=== PATIENT | female | born 1935 | race African-American/Black ===

== ENCOUNTER 2017-11-03 11:36 | Inpatient (IN) | payer OTHER, BC ==
--- NOTE | 2017-11-03 11:39 | PDOC ---
History of Present Illness - General Chief Complaint: Pain Stated Complaint: ABDOMINAL PAIN Time Seen by Provider: 11/03/17 11:38 - History of Present Illness Initial Comments: 11/03/17 11:39 Ms. Soto is an 82 yo female w/ pmh of HLD, HTN (now reportedly resolved by daughter), dementia and DM who presents for evaluation of abdominal pain. Per daughter who is with her she vomited up her breakfast on and has been reporting increasing abdominal pain since. Daughter decided to present to ER when she touched her mother's stomach last night and Ms. Soto reported a large amount of pain. Ms. Soto has not had a bowel movement recently but has not been eating since per daughter. She typically goes once every 4-5 days but it has now been 5-6 with only scant amounts of stool noted in diaper recently. The patient denies chest pain, shortness of breath, headache and dizziness. Denies fever, chills, nausea, and diarrhea. Denies dysuria, frequency, urgency and hematuria. Allergies: NKDA Past History - Past Medical History Allergies/Adverse Reactions: Allergies Allergy/AdvReac Type Severity Reaction Status Date / Time No Known Allergies Allergy Verified 11/03/17 11:39 Home Medications: Ambulatory Orders Atorvastatin Ca [Lipitor] 10 mg PO HS 11/03/17 Brimonidine Tartrate/Timolol [Combigan 0.2%-0.5% Eye Drops] 1 drop OU BID Metformin HCl 500 mg PO BID 11/03/17 Review of Systems - Review of Systems Comments:: 11/03/17 11:39 GENERAL/CONSTITUTIONAL: +Increased weakness. No fever or chills. HEAD, EYES, EARS, NOSE AND THROAT: No change in vision. No ear pain or discharge. No sore throat. CARDIOVASCULAR: No chest pain or shortness of breath RESPIRATORY: No cough, wheezing, or hemoptysis. GASTROINTESTINAL: +1 episode of nausea with vomiting (NBNB). Some constipation as described. GENITOURINARY: No dysuria, frequency, or change in urination. MUSCULOSKELETAL: No joint or muscle swelling or pain. No neck or back pain. SKIN: No rash NEUROLOGIC: No headache, vertigo, loss of consciousness, or change in strength/ sensation. ENDOCRINE: No increased thirst. No abnormal weight change HEMATOLOGIC/LYMPHATIC: No anemia, easy bleeding, or history of blood clots. ALLERGIC/IMMUNOLOGIC: No hives or skin allergy. *Physical Exam - Physical Exam Comments: 11/03/17 11:39 GENERAL: +Patient appears significantly dehydrated with sunken eyes and dry mucous membranes. Awake, alert, and fully oriented, in no acute distress HEAD: No signs of trauma, normocephalic, atraumatic EYES: PERRLA, EOMI, sclera anicteric, conjunctiva clear ENT: Auricles normal inspection, hearing grossly normal, nares patent, oropharynx clear without exudates. NECK: Normal ROM, supple, no lymphadenopathy, JVD, or masses LUNGS: No distress, speaks full sentences, clear to auscultation bilaterally HEART: Regular rate and rhythm, normal S1 and S2, no murmurs, rubs or gallops, peripheral pulses normal and equal bilaterally. ABDOMEN: +Diffusely tender to palpation. Soft, normoactive bowel sounds. No guarding, no rebound. No masses EXTREMITIES: Normal inspection, Normal range of motion, no edema. No clubbing or cyanosis. NEUROLOGICAL: Cranial nerves II through XII grossly intact. Normal speech, normal gait, no focal sensorimotor deficits SKIN: +Tenting apparent. Warm, Dry, no rashes or lesions noted. ED Treatment Course - LABORATORY CBC & Chemistry Diagram: 11/03/17 12:29 11/03/17 12:24 Medical Decision Making - Medical Decision Making 11/03/17 16:49 Ms. Soto is an 82 yo female w/ pmh as described who presents for evaluation of 3 days of abdominal pain with decreased appetitie. CBC/CMP/UA/EKG/Abdominal CT sent for further evaluation. 11/03/17 16:[address] made without IV as patient creatinine noted to be elevated. CBC/ CMP unconcerning as below. Patient found to have SBO on abdominal CT. NG tube placed for decompression. Discussed patient with surgery for evaluation and discussed with PCP (Dr. Bill) for admission. Patient will be admitted to med/ surg floor for further follow-up. Laboratory Results - last 24 hr 11/03/17 11/03/17 11/03/17 11:53 12:24 12:29 WBC 7.6 RBC 3.42 L Hgb 10.1 L Hct 29.8 L MCV 87.1 MCH 29.6 MCHC 34.0 RDW 14.4 Plt Count 154 MPV 9.4 Neutrophils % 84.5 H Lymphocytes % 4.0 L Monocytes % 11.1 H Eosinophils % 0.3 Basophils % 0.1 Sodium 139 Potassium 3.0 L Chloride 102 Carbon Dioxide 18 L Anion Gap 19 H BUN 67 H Creatinine 1.8 H Creat Clearance w eGFR 26.87 Random Glucose 192 H Lactic Acid Calcium 8.0 L Total Bilirubin 1.6 H AST 39 H ALT 26 Alkaline Phosphatase 53 Total Protein 5.5 L Albumin 2.8 L Lipase 80 Urine Color Urine Appearance Urine pH Ur Specific [place] Urine Protein Urine Glucose (UA) Urine Ketones Urine Blood Urine Nitrite Urine Bilirubin Urine Urobilinogen Ur Leukocyte Esterase Urine WBC (Auto) Urine RBC (Auto) Ur Epithelial Cells Urine Bacteria Hyaline Casts Granular Casts Stool Occult Blood Negative 11/03/17 11/03/17 12:29 12:42 WBC RBC Hgb Hct MCV MCH MCHC RDW Plt Count MPV Neutrophils % Lymphocytes % Monocytes % Eosinophils % Basophils % Sodium Potassium Chloride Carbon Dioxide Anion Gap BUN Creatinine Creat Clearance w eGFR Random Glucose Lactic Acid 1.0 Calcium Total Bilirubin AST ALT Alkaline Phosphatase Total Protein Albumin Lipase Urine Color Yellow Urine Appearance Cloudy Urine pH 5.0 Ur Specific [place] 1.017 Urine Protein 1+ H Urine Glucose (UA) 1+ H Urine Ketones 1+ H Urine Blood 2+ H Urine Nitrite Negative Urine Bilirubin Negative Urine Urobilinogen Negative Ur Leukocyte Esterase Negative Urine WBC (Auto) 2 Urine RBC (Auto) 3 Ur Epithelial Cells Rare Urine Bacteria Many Hyaline Casts 18 Granular Casts 17 Stool Occult Blood *DC/Admit/Observation/Transfer Diagnosis at time of Disposition: SBO (small bowel obstruction) - Discharge Dispostion Admit: Yes - Referrals - Patient Instructions - Post Discharge Activity
--- NOTE | 2017-11-03 11:45 | PDOC ---
Attending Attestation - HPI HPI: 11/03/17 12:19 The patient is an 82 F with PMHx of Hyperlipidemia, hypertension (now resolved as per daughter), dementia, and diabetes, who presents with abdominal pain. Patients daughter states that patient vomited on after eating breakfast and had progressively worsening abdominal pain since then. She reports decreased PO intake. The patient denies chest pain, shortness of breath, headache and dizziness. Denies fever, chills, diarrhea and constipation. Denies dysuria, frequency, urgency and hematuria. Allergies: NKDA PCP: Rachel Bill - Physicial Exam PE: 11/03/17 12:20 Exam: Vitals: Triage Vital signs reviewed General Appearance: mild distress, cachetic. Head: Atraumatic, normocephalic Chest Wall: Nontender Cardiac: Regular rate and rhythm, no murmurs, no rubs, no gallops, Lungs: Clear to auscultation bilateral, good air movement bilaterally, Abdomen: Soft, normal bowel sounds, diffuse tenderness to palpation. Rectal: Exam deferred Extremities: Full range of motion to all extremities, no cyanosis, clubbing, or edema Skin: Warm and dry, no rashes or lesions, no petechiae <Sharri Hendricks - Last Filed: 11/03/17 12:41> - Resident Resident Name: Shahid Bruno - ED Attending Attestation I have performed the following: I have examined & evaluated the patient, The case was reviewed & discussed with the resident, I agree w/resident's findings & plan, Exceptions are as noted - HPI HPI: 11/03/17 16:39 - Medical Decision Making 81 years old past medical history significant for hyperlipidemia hypertension dementia diabetes presents with several day history of nausea vomiting and abdominal pain Abdominal examination diffuse tenderness we'll order labs EKG CT abdomen and reassess Unable to have patient tolerated by mouth contrast Reevaluation CAT scan notable for small bowel obstruction. Dr. Ayers surgery consulted We will admit to medicine. Surgery to consult. NG tube placed by resident Confirmed by positive suctioning of gastric content We'll admit for further management. A portion of this note was documented by scribe services under my direction I reviewed the details of note within reason and agree with the documentation with the following case summary and management plan written by me <Ever Verdugo - Last Filed: 11/03/17 16:40> Heart Score/ECG Review - ECG Impressions Comment:: EKG performed at 1518. Sinus rhythm 93 beats per minutes no ST elevations or T- wave inversions Interpreted by me <Ever Verdugo - Last Filed: 11/03/17 16:40>
[2017-11-03 11:46] VITALS: BMI 16.0
[2017-11-03] MEDS ORDERED: SODIUM CHLORIDE 1,000 ML IV STA (12:15)
[2017-11-03] MEDS ORDERED: morphine CARPU-JECT 2 MG/1 ML DISP.SYRIN IVPUSH ONE (12:16)
[2017-11-03 12:51] LABS: BASO % 0.1 % (0-2.0); EOS % 0.3 % (0-4.5); HEMATOCRIT 29.8 % (32.4-45.2); HEMOGLOBIN 10.1 GM/dL (10.7-15.3); MCH 29.6 pg (25.7-33.7); MEAN CELL VOLUME 87.1 fl (80-96); MEAN PLT VOLUME 9.4 fl (7.5-11.1); MONO % 11.1 % (3.8-10.2); NEUT % 84.5 % (42.8-82.8); PLATELET COUNT 154 K/MM3 (134-434); RBC 3.42 M/mm3 (3.60-5.2); RDW 14.4 % (11.6-15.6); WHITE BLOOD COUNT 7.6 K/mm3 (4.0-10.0)
[2017-11-03 12:59] LABS: ALBUMIN 2.8 g/dl (3.4-5.0); ALK PHOS 53 U/L (45-117); ANION GAP 19 (8-16); BILIRUBIN,TOTAL 1.6 mg/dL (0.2-1.0); BLOOD UREA NITROGEN 67 mg/dL (7-18); CHLORIDE 102 mmol/L (98-107); CO2 18 mmol/L (21-32); CREATININE 1.8 mg/dL (0.55-1.02); GLUCOSE,RANDOM 192 mg/dL (74-106); LIPASE 80 U/L (73-393); SGOT/AST 39 U/L (15-37); SGPT/ALT 26 U/L (12-78); SODIUM 139 mmol/L (136-145); TOT PROT 5.5 g/dl (6.4-8.2)
[2017-11-03] MEDS ORDERED: morphine SULFATE 4 MG/ML VIAL ONE ×2 (12:59→15:12)
[2017-11-03 13:01] LABS: URINE APPEARANCE CLOUDY; URINE BILIRUBIN NEGATIVE (NEGATIVE); URINE BLOOD 2+ (NEGATIVE); URINE COLOR YELLOW; URINE GLUCOSE (UA) 1+ (NEGATIVE); URINE KETONE 1+ (NEGATIVE); URINE LEUK ESTERASE NEGATIVE (NEGATIVE); URINE NITRITE NEGATIVE (NEGATIVE); URINE UROBILINOGEN NEGATIVE mg/dL (0.2-1.0)
[2017-11-03 13:06] LABS: URINE PROTEIN 1+ (NEGATIVE)
[2017-11-03 13:19] LABS: EPI CELLS RARE /HPF (FEW); GRANULAR CASTS 17 /lpf; URINE BACTERIA MANY /hpf (NONE SEEN); URINE HYALINE CAST 18 /lpf
[2017-11-03] MEDS ORDERED: morphine CARPU-JECT 4 MG/1 ML DISP.SYRIN IVPUSH ONE (15:04)
[2017-11-03] MEDS ORDERED: TETRACAINE/BENZOCAINE/BUTAMBEN 20 GM SPR TP ONE (15:36)
[2017-11-03] MEDS ORDERED: LIDOCAINE VISCOUS 2% ORAL/TOP 20 ML UNIT-DOSE CUP MM ONE (15:36)
[2017-11-03] MEDS ORDERED: MIDAZOLAM HCL 2 MG/2 ML SINGLE DOSE VIAL IVPUSH ONE (15:36)
[2017-11-03] MEDS ORDERED: LIDOCAINE VISCOUS 2% ORAL/TOP 20 ML UNIT-DOSE CUP ONE (15:39)
[2017-11-03] MEDS ORDERED: MIDAZOLAM HCL 2 MG/2 ML SINGLE DOSE VIAL ONE (15:40)
[2017-11-03] MEDS ORDERED: morphine CARPU-JECT 2 MG/1 ML DISP.SYRIN IVPUSH PRN (21:04)
[2017-11-03] MEDS ORDERED: SODIUM CHLORIDE 0.45%/POT 20 MEQ/1,000 ML INFUS.BAG IV SCH (21:15)
[2017-11-03] MEDS: PANTOPRAZOLE SODIUM 40 MG VIAL IVPUSH SCH (21:26)
[2017-11-03] MEDS: HEPARIN NA (PORCINE) 5,000 UNITS/ML 1ML VIAL SQ SCH (21:29)
[2017-11-03 21:41] LABS: BASO % 0.1 % (0-2.0); EOS % 0.5 % (0-4.5); HEMATOCRIT 33.8 % (32.4-45.2); HEMOGLOBIN 11.4 GM/dL (10.7-15.3); LYMPH % 8.3 % (8-40); MCH 29.7 pg (25.7-33.7); MCHC 33.7 g/dl (32.0-36.0); MEAN CELL VOLUME 88.1 fl (80-96); MEAN PLT VOLUME 9.5 fl (7.5-11.1); MONO % 13.2 % (3.8-10.2); NEUT % 77.9 % (42.8-82.8); PLATELET COUNT 162 K/MM3 (134-434); RBC 3.84 M/mm3 (3.60-5.2); RDW 14.4 % (11.6-15.6); WHITE BLOOD COUNT 3.2 K/mm3 (4.0-10.0)
[2017-11-03] MEDS ORDERED: PATIENT'S OWN MEDICATION (NON-FORMULARY) (Brimonidine Tartrate/Timolol [Combigan 0.2%-0.5% OU SCH (22:00)
[2017-11-03] MEDS: INSULIN SLIDING SCALE (NOVOLOG) 1 VIAL SQ SCH (22:36)
[2017-11-03] MEDS: DORZOLAMIDE 2% HCL OPHTHALMIC SOLUTION 10 ML BOTTLE OU SCH (22:52)
[2017-11-03] MEDS: BRIMONIDINE TARTRATE 0.2% OPHTHALMIC 5 ML BOTTLE OU SCH (22:52)
[2017-11-03] MEDS ORDERED: SODIUM CHLORIDE 0.45% 1,000 ML with POTASSIUM CHLORIDE 20 MEQ IVPB SCH (23:00)
[2017-11-03] MEDS: PIPERACILLIN/TAZOB 2.25 GM 2.25 GM/50 ML BAG IVPB SCH (23:23)
[2017-11-04] MEDS ORDERED: PIPERACILLIN/TAZOB 2.25 GM/50 ML PREMIX BAG IVPB SCH ×2 (02:00→10:00)
[2017-11-04] MEDS: PIPERACILLIN/TAZOB 2.25 GM 2.25 GM/50 ML BAG IVPB SCH (06:07)
[2017-11-04] MEDS: INSULIN SLIDING SCALE (NOVOLOG) 1 VIAL SQ SCH ×4 (06:13→21:21)
[2017-11-04 08:21] LABS: BASO % 0.1 % (0-2.0); EOS % 0.2 % (0-4.5); HEMATOCRIT 30.5 % (32.4-45.2); HEMOGLOBIN 10.5 GM/dL (10.7-15.3); LYMPH % 4.5 % (8-40); MCH 29.9 pg (25.7-33.7); MCHC 34.4 g/dl (32.0-36.0); MEAN CELL VOLUME 87.1 fl (80-96); MEAN PLT VOLUME 9.5 fl (7.5-11.1); MONO % 9.7 % (3.8-10.2); NEUT % 85.5 % (42.8-82.8); PLATELET COUNT 177 K/MM3 (134-434); RBC 3.51 M/mm3 (3.60-5.2); RDW 14.4 % (11.6-15.6); WHITE BLOOD COUNT 5.5 K/mm3 (4.0-10.0)
[2017-11-04 08:25] LABS: ALBUMIN 2.7 g/dl (3.4-5.0); AMYLASE 39 U/L (25-115); ANION GAP 21 (8-16); BLOOD UREA NITROGEN 63 mg/dL (7-18); CALCIUM 8.2 mg/dL (8.5-10.1); CHLORIDE 105 mmol/L (98-107); CO2 16 mmol/L (21-32); CREATININE 1.7 mg/dL (0.55-1.02); GLUCOSE,RANDOM 184 mg/dL (74-106); LIPASE 58 U/L (73-393); MAGNESIUM 2.3 mg/dL (1.8-2.4); POTASSIUM 3.5 mmol/L (3.5-5.1); SGOT/AST 36 U/L (15-37); SGPT/ALT 27 U/L (12-78); SODIUM 142 mmol/L (136-145)
[2017-11-04 08:26] LABS: ALK PHOS 51 U/L (45-117); BILIRUBIN,TOTAL 1.8 mg/dL (0.2-1.0); TOT PROT 5.7 g/dl (6.4-8.2)
[2017-11-04] MEDS ORDERED: PT OWN MED DRAWER 7, Y5N ONE ×2 (08:35→21:26)
[2017-11-04] MEDS: MORPHINE SULFATE 10 MG/1 ML *VIAL IVPUSH PRN ×2 (08:38→15:19)
[2017-11-04] MEDS ORDERED: ONDANSETRON 4 MG/2 ML VIAL IVPUSH PRN (10:33)
--- NOTE | 2017-11-04 10:39 | HP ---
Admitting History and Physical - Primary Care Physician PCP: Rachel Bill - Admission Chief Complaint: Abdominal pain, Nausea, vomiting History of Present Illness: The patient is an 82 F with PMHx of Hyperlipidemia, hypertension (now resolved as per daughter), dementia, and diabetes, who presents with abdominal pain. Patients daughter states that patient vomited on after eating breakfast and had progressively worsening abdominal pain since then. She reports decreased PO intake. The patient denies chest pain, shortness of breath, headache and dizziness. Denies fever, chills, diarrhea and constipation. Denies dysuria, frequency, urgency and hematuria. 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: Dementia Endocrine: Yes: Diabetes Mellitus (NIDDM) - Smoking History Smoking history: Never smoked - Alcohol/Substance Use Hx Alcohol Use: No Home Medications - Allergies Allergies/Adverse Reactions: Allergies Allergy/AdvReac Type Severity Reaction Status Date / Time No Known Allergies Allergy Verified 11/03/17 11:39 - Home Medications Home Medications: Ambulatory Orders Atorvastatin Ca [Lipitor] 10 mg PO HS 11/03/17 Brimonidine Tartrate/Timolol [Combigan 0.2%-0.5% Eye Drops] 1 drop OU BID Metformin HCl 500 mg PO BID 11/03/17 Review of Systems - Review of Systems Constitutional: reports: No Symptoms Eyes: reports: No Symptoms HENT: reports: No Symptoms Neck: reports: No Symptoms Cardiovascular: reports: No Symptoms Respiratory: reports: No Symptoms Gastrointestinal: reports: Abdominal Pain, Nausea, Vomiting Genitourinary: reports: No Symptoms Breasts: reports: No Symptoms Reported Musculoskeletal: reports: No Symptoms Integumentary: reports: No Symptoms Neurological: reports: No Symptoms Endocrine: reports: No Symptoms Hematology/Lymphatic: reports: No Symptoms Psychiatric: reports: No Symptoms Physical Examination Vital Signs: Vital Signs Temperature 98.0 F 11/04/17 06:00 Pulse Rate 93 H 11/04/17 06:00 Respiratory Rate 18 11/04/17 06:00 Blood Pressure 132/77 11/04/17 06:00 O2 Sat by Pulse Oximetry (%) 100 11/03/17 22:15 Constitutional: Yes: No Distress, Calm, Cachectic Cardiovascular: Yes: Regular Rate and Rhythm Respiratory: Yes: Regular Gastrointestinal: Yes: Hypoactive Bowel Sounds, Tenderness Musculoskeletal: Yes: WNL Extremities: Yes: WNL Edema: No Peripheral Pulses WNL: Yes Neurological: Yes: Alert, Pre-Existing Deficit Psychiatric: Yes: Alert Labs: CBC, BMP 11/04/17 07:35 11/04/17 07:35 Imaging - Results Chest X-ray: Report Reviewed Cat Scan: Report Reviewed Problem List - Problems (1) Malnourished Assessment/Plan: evidence by low total protein and albumin -RD consult once SBO improves Code(s): E46 - UNSPECIFIED PROTEIN-CALORIE MALNUTRITION (2) SBO (small bowel obstruction) Assessment/Plan: -NGT -NPO -Surgery consult pending -serial abdominal Xrays -IVF with KCl -ABX in light of complete or high grade SBO Code(s): K56.609 - UNSP INTESTNL OBST, UNSP TO PARTIAL VERSUS COMPLETE OBST (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
[2017-11-04] MEDS ORDERED: FLU VACCINE QUAD 60 MCG/0.5 ML (MDV 17-18) IM ONE (11:00)
[2017-11-04] MEDS: SODIUM CHLORIDE 0.45% 1,000 ML with POTASSIUM CHLORIDE 20 MEQ IV SCH ×2 (12:17→21:30)
[2017-11-04] MEDS: PANTOPRAZOLE SODIUM 40 MG VIAL IVPUSH SCH (12:19)
[2017-11-04] MEDS: BRIMONIDINE TARTRATE 0.2% OPHTHALMIC 5 ML BOTTLE OU SCH ×2 (12:20→21:29)
[2017-11-04] MEDS: HEPARIN NA (PORCINE) 5,000 UNITS/ML 1ML VIAL SQ SCH ×2 (12:24→21:16)
[2017-11-04] MEDS: DORZOLAMIDE 2% HCL OPHTHALMIC SOLUTION 10 ML BOTTLE OU SCH ×2 (12:24→21:27)
[2017-11-04] MEDS ORDERED: PIPERACILLIN/TAZOB 2.25 GM 2.25 GM in DEXTROSE 5%-WATER - 50 ML IVPB SCH (15:45)
--- NOTE | 2017-11-04 15:54 | EKG ---
Test Reason : Blood Pressure : / mmHG Vent. Rate : 109 BPM Atrial Rate : 109 BPM P-R Int : 120 ms QRS Dur : 068 ms QT Int : 336 ms P-R-T Axes : 058 023 088 degrees QTc Int : 452 ms SINUS TACHYCARDIA OTHERWISE NORMAL ECG WHEN COMPARED WITH ECG OF 03-NOV-2017 15:18, NO SIGNIFICANT CHANGE WAS FOUND Confirmed by STACY LEE MD ([id number]) on 11/04/2017 3:54:21 PM Referred By: Confirmed By:STACY LEE MD
--- NOTE | 2017-11-04 16:05 | EKG ---
Test Reason : Blood Pressure : / mmHG Vent. Rate : 093 BPM Atrial Rate : 093 BPM P-R Int : 122 ms QRS Dur : 068 ms QT Int : 366 ms P-R-T Axes : 046 -05 071 degrees QTc Int : 455 ms NORMAL SINUS RHYTHM NORMAL ECG NO PREVIOUS ECGS AVAILABLE Confirmed by STACY LEE MD ([id number]) on 11/04/2017 4:05:48 PM Referred By: Confirmed By:STACY LEE MD
--- NOTE | 2017-11-04 16:06 | PN ---
Progress Note (short form) - Note Progress Note: ID consult dictated imp/reccd 82 year old female admitted from home with constipation since Saturday and abdominal pain, one episode of vomiting ct scan with SBO no perforation NGT has been placed still with some abdominal discomfort no fevers no leukocytosis will d/w surgery- see no role for antibiotics at this time Problem List - Problems (1) SBO (small bowel obstruction) Code(s): K56.609 - UNSP INTESTNL OBST, UNSP TO PARTIAL VERSUS COMPLETE OBST (2) Malnourished Code(s): E46 - UNSPECIFIED PROTEIN-CALORIE MALNUTRITION
--- NOTE | 2017-11-04 18:00 | PN ---
Progress Note (short form) - Note Progress Note: surgery pt seen and examined this morning. full consult dictated. 82f, cachectic, dementia, admitted for abd pain, vomiting, and ct showing sbo. History of hysterectomy. ngt with about 300 bilious output. 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 Pt is a poor candidate for surgery and every attempt should be made for medical management. Clinically no bowel compromise with normal wbc, no fever, and no peritoneal findings on exam. Cont ngt and npo. Oral contrast given via ngt to be followed for migration on kub. Suggest TPN for protein calorie malnutrition and unknown date for return of gut function. Would consider laparotomy Saturday if no improvement.
--- NOTE | 2017-11-04 18:43 | CONS ---
DATE OF CONSULTATION: 11/04/2017 REASON FOR CONSULTATION: Small-bowel obstruction. This is a consultation at the request of the emergency room physician. The patient was subsequently admitted to the hospital floor as an inpatient, is being seen and examined on the floor. BRIEF HISTORY: This is an 82-year-old female with multiple medical problems including dementia and cachexia, who presents with abdominal pain, nausea, and vomiting. She had a CAT scan of her abdomen and pelvis, which was consistent with a high-grade partial bowel obstruction. She had a normal white blood cell count and was admitted for conservative management and request is made for a surgical evaluation. A nasogastric tube was placed with resolution of her pain. She has had no bowel movements, and she is not passing gas. NG tube output has been approximately 300 bilious since being placed. PAST MEDICAL HISTORY: Significant for hyperlipidemia, hypertension, dementia, and diabetes. PAST SURGICAL HISTORY: Significant for a hysterectomy. SOCIAL HISTORY: Negative for alcohol, negative for tobacco. ALLERGIES: She has no known drug allergies. HOME MEDICATIONS: Include Lipitor and metformin. FAMILY HISTORY: Noncontributory. REVIEW OF SYSTEMS: Unobtainable as the patient has dementia. PHYSICAL EXAMINATION: General: This is a cachectic, 82-year-old female in no distress. HEENT: Her head shows temporal wasting. Neck: Supple. Chest: Clear. Abdomen: Soft. It is moderately distended. It is nontender. She has a well-healed Pfannenstiel incision. She has no obvious hernias. There are no peritoneal findings. Extremities: Trace edema. LABORATORY DATA: Her white blood cell count is normal at 5.5. She has 85% neutrophils. Her hemoglobin is 10.5. Her chemistries show BUN of 63, a creatinine of 1.7. Her albumin is low at 2.7. IMAGING: She has a CAT scan of her abdomen and pelvis, which shows a high-grade small-bowel obstruction with transition in the left lower quadrant. There is ascites noted within the abdomen and pelvis, as well as pleural effusions. ASSESSMENT: This is an 82-year-old female with multiple medical problems including cachexia, previous hysterectomy, who presents with abdominal pain, nausea, vomiting, and CAT scan evidence of a high-grade small-bowel obstruction with ascites. Clinically, she has no evidence of bowel compromise based on white count and physical examination findings. She is currently pain free with nasogastric tube decompression. I suspect she has a high-grade bowel obstruction secondary to adhesive disease. Patient is a very poor candidate for surgery. We will make every attempt at medical management. I agree with NG tube decompression, agree with n.p.o. We will add oral contrast to the NG tube in order to follow for its migration on serial abdominal x-rays. Would consider laparotomy after several days if there is no evidence of improvement. Recommend TPN to be started as patient currently has protein calorie malnutrition, and if she requires surgery, she will have a hard time healing. Also, it is unclear when the patient will have return of gut function. I had a conversation with one of the patient's daughters and another one was on the phone during the exam. Patient currently is nontoxic without evidence of bowel compromise. DO SOLEDAD LEIGH/[id number]
[2017-11-04] MEDS ORDERED: INSULIN (NOVOLOG) ASPART 100 UNITS/ML 10ML VIAL ONE (20:36)
[2017-11-05] MEDS: SODIUM CHLORIDE 0.45% 1,000 ML with POTASSIUM CHLORIDE 20 MEQ IV SCH ×2 (00:26→10:34)
[2017-11-05] MEDS: INSULIN SLIDING SCALE (NOVOLOG) 1 VIAL SQ SCH ×4 (06:05→21:29)
[2017-11-05] MEDS: MORPHINE SULFATE 10 MG/1 ML *VIAL IVPUSH PRN ×2 (06:28→10:42)
[2017-11-05] MEDS: BRIMONIDINE TARTRATE 0.2% OPHTHALMIC 5 ML BOTTLE OU SCH ×2 (10:34→21:22)
[2017-11-05] MEDS: HEPARIN NA (PORCINE) 5,000 UNITS/ML 1ML VIAL SQ SCH ×2 (10:35→21:22)
[2017-11-05] MEDS: DORZOLAMIDE 2% HCL OPHTHALMIC SOLUTION 10 ML BOTTLE OU SCH ×2 (10:44→21:22)
--- NOTE | 2017-11-05 10:44 | PN ---
Progress Note, Physician Chief Complaint: SBO History of Present Illness: RIDDHI just came back from [facility] with contrast -Pt pulled out her NGT overnight -IVF -seen by ID and surgery -trial of conservative measures -Renal consult for initiation of TPN -PICC line consult - Current Medication List Current Medications: Active Medications Brimonidine Tartrate (Alphagan 0.2% -) 1 drop OU BID [facility] Last Admin: 11/04/17 21:29 Dose: 1 drp Dorzolamide HCl (Trusopt 2%) 1 drop OU BID [facility] Last Admin: 11/04/17 21:27 Dose: 1 drop Heparin Sodium (Porcine) (Heparin -) 5,000 unit SQ BID [facility] Last Admin: 11/04/17 21:16 Dose: 5,000 unit IV Flush (Picc Line Flush) 8 ml IVPUSH PRN PRN PRN Reason: Protocol Potassium Chloride 20 meq/ (Sodium Chloride) 1,010 mls @ 100 mls/hr IV Q10H [facility] Last Admin: 11/05/17 00:26 Dose: 100 mls/hr Insulin Aspart (Novolog Vial Sliding Scale -) 1 vial SQ ACHS [facility] PRN Reason: Protocol Last Admin: 11/05/17 06:05 Dose: Not Given Lorazepam (Ativan Injection -) 1 mg IVPUSH TID PRN PRN Reason: ANXIETY Morphine Sulfate (Morphine Injection -) 1 mg IVPUSH Q4H PRN PRN Reason: PAIN LEVEL 6-10 Last Admin: 11/05/17 06:28 Dose: 1 mg Ondansetron HCl (Zofran Injection) 4 mg IVPUSH Q6H PRN PRN Reason: NAUSEA AND/OR VOMITING Pantoprazole Sodium (Protonix Iv) 40 mg IVPUSH DAILY [facility] Last Admin: 11/04/17 12:19 Dose: 40 mg - Objective Vital Signs: Vital Signs Temperature 97.7 F 11/05/17 07:00 Pulse Rate 87 11/05/17 07:00 Respiratory Rate 20 11/05/17 07:00 Blood Pressure 147/77 11/05/17 07:00 O2 Sat by Pulse Oximetry (%) 96 11/04/17 21:00 Constitutional: Yes: No Distress, Anxious, Cachectic Cardiovascular: Yes: Regular Rate and Rhythm Respiratory: Yes: Regular Gastrointestinal: Yes: Hypoactive Bowel Sounds Musculoskeletal: Yes: Muscle Weakness Edema: No Peripheral Pulses WNL: Yes Neurological: Yes: Alert, Pre-Existing Deficit Psychiatric: Yes: Alert, Agitated Labs: CBC, BMP 11/04/17 07:35 11/04/17 07:35 Problem List - Problems (1) Malnourished Assessment/Plan: evidence by low total protein and albumin -RD consult once SBO improves -initiate TPN -renal consult -PICC line -repeat AXR shows no change in SBO Code(s): E46 - UNSPECIFIED PROTEIN-CALORIE MALNUTRITION (2) SBO (small bowel obstruction) Assessment/Plan: -NGT -NPO -restraints to avoid interruption in therapy -Surgery consult pending -abdominal Xray shows no change in SBO -IVF with KCl Code(s): K56.609 - UNSP INTESTNL OBST, UNSP TO PARTIAL VERSUS COMPLETE OBST (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
[2017-11-05] MEDS: PANTOPRAZOLE SODIUM 40 MG VIAL IVPUSH SCH (10:45)
[2017-11-05 11:16] LABS: BASO % 0.2 % (0-2.0); EOS % 0.1 % (0-4.5); HEMATOCRIT 33.6 % (32.4-45.2); HEMOGLOBIN 11.1 GM/dL (10.7-15.3); LYMPH % 4.6 % (8-40); MCH 29.4 pg (25.7-33.7); MCHC 33.2 g/dl (32.0-36.0); MEAN CELL VOLUME 88.7 fl (80-96); MEAN PLT VOLUME 8.7 fl (7.5-11.1); MONO % 10.6 % (3.8-10.2); NEUT % 84.5 % (42.8-82.8); PLATELET COUNT 204 K/MM3 (134-434); RBC 3.78 M/mm3 (3.60-5.2); RDW 14.8 % (11.6-15.6); WHITE BLOOD COUNT 6.4 K/mm3 (4.0-10.0)
--- NOTE | 2017-11-05 11:21 | CONSULT ---
Consult - text type - Consultation Consultation Note: Renal Consult for CKD/MARIE and Malnutrition Home Medications Medication Instructions Recorded Atorvastatin Ca [Lipitor] 10 mg PO HS 11/03/17 Brimonidine Tartrate/Timolol 1 drop OU BID 11/03/17 [Combigan 0.2%-0.5% Eye Drops] Metformin HCl 500 mg PO BID 11/03/17 Vital Signs Temperature 97.7 F 11/05/17 07:00 Pulse Rate 87 11/05/17 07:00 Respiratory Rate 20 11/05/17 07:00 Blood Pressure 147/77 11/05/17 07:00 O2 Sat by Pulse Oximetry (%) 96 11/04/17 21:00 Intake & Output 11/02/17 11/03/17 11/04/17 11/05/17 22:59 23:59 23:59 23:59 Intake Total 1200 Output Total 700 Balance -700 1200 Weight Laboratory Tests 11/03/17 11/04/17 11/04/17 11:53 07:35 07:35 WBC 5.5 D Hgb 10.5 L Hct 30.5 L Plt Count 177 Sodium 142 Potassium 3.5 Chloride 105 Carbon Dioxide 16 L Anion Gap 21 H BUN 63 H Creatinine 1.7 H Albumin 2.7 L Stool Occult Blood Negative Current Medications Brimonidine Tartrate (Alphagan 0.2% -) 1 drop OU BID [facility] Last Admin: 11/05/17 10:34 Dose: 1 drp Dorzolamide HCl (Trusopt 2%) 1 drop OU BID [facility] Last Admin: 11/05/17 10:44 Dose: 1 drop Heparin Sodium (Porcine) (Heparin -) 5,000 unit SQ BID [facility] Last Admin: 11/05/17 10:35 Dose: 5,000 unit IV Flush (Picc Line Flush) 8 ml IVPUSH PRN PRN PRN Reason: Protocol AA 2.75 %/CALCIUM/LYTES/D7.5W (Clinimix 2.75%-7.5% Solution) 1,000 mls @ 63 mls /hr IVPB Q15H [facility] Insulin Aspart (Novolog Vial Sliding Scale -) 1 vial SQ ACHS [facility] PRN Reason: Protocol Last Admin: 11/05/17 06:05 Dose: Not Given Lorazepam (Ativan Injection -) 1 mg IVPUSH TID PRN PRN Reason: ANXIETY Morphine Sulfate (Morphine Injection -) 1 mg IVPUSH Q4H PRN PRN Reason: PAIN LEVEL 6-10 Last Admin: 11/05/17 10:42 Dose: 1 mg Ondansetron HCl (Zofran Injection) 4 mg IVPUSH Q6H PRN PRN Reason: NAUSEA AND/OR VOMITING Last Admin: 11/05/17 10:33 Dose: 4 mg Pantoprazole Sodium (Protonix Iv) 40 mg IVPUSH DAILY [facility] Last Admin: 11/05/17 10:45 Dose: 40 mg 82 year old woman with PMhx HTN dementia and DM who presents for evaluation of abdominal pain and found to have SBO with Cr of 1.7. #CKD/MARIE no piror Cr in [facility] to compare to will attempt to get baseline labs from PMD check UA, UPCR Trend BUN/Cr with IVF CT of the Abd showed no obsturction or stones on the kidney Dose all meds for CrCl less then 30 #SBO/NPO status/Malnutrition Surgery following Will start Clnimix with 2% AA and electrolytes once PICC line is placed can start TPN as needed #Anemia No need for transfusion #Hypertension BP is acceptable for age will monitor Thank you Vinnie Holt DO
[2017-11-05 11:40] LABS: ALBUMIN 2.8 g/dl (3.4-5.0); ALK PHOS 61 U/L (45-117); ANION GAP 21 (8-16); BILIRUBIN,TOTAL 1.3 mg/dL (0.2-1.0); BLOOD UREA NITROGEN 45 mg/dL (7-18); CALCIUM 8.1 mg/dL (8.5-10.1); CHLORIDE 107 mmol/L (98-107); CO2 14 mmol/L (21-32); CREATININE 1.1 mg/dL (0.55-1.02); GLUCOSE,RANDOM 175 mg/dL (74-106); SGOT/AST 34 U/L (15-37); SGPT/ALT 31 U/L (12-78); SODIUM 142 mmol/L (136-145); TOT PROT 5.6 g/dl (6.4-8.2)
--- NOTE | 2017-11-05 11:52 | PN ---
Progress Note (short form) - Note Progress Note: awake and alert confused NGT Vital Signs Period Temp Pulse Resp BP Sys/Fuentes Pulse Ox Last 24 Hr 97.7 F-98.1 F 87-99 18-20 145-150/77-83 96 cor-rrr lungs decreased bs at bases abd soft, dffuse tenderness to palpation ext no edema CBC, BMP 11/05/17 10:50 11/05/17 10:50 Microbiology 11/03/17 12:54 Urine - Urine - Catheterized Urine Culture - Final NO GROWTH OBTAINED imp/reccd 82 year old female admitted from home with constipation since Saturday and abdominal pain, one episode of vomiting ct scan with SBO no perforation NGT has been placed still with some abdominal discomfort-remains afebrile with normal WBC surgical f/u please call back if needed Problem List - Problems (1) SBO (small bowel obstruction) Code(s): K56.609 - UNSP INTESTNL OBST, UNSP TO PARTIAL VERSUS COMPLETE OBST (2) Malnourished Code(s): E46 - UNSPECIFIED PROTEIN-CALORIE MALNUTRITION
[2017-11-05] MEDS: LORazepam 2 MG/ML SDV VIAL IVPUSH PRN ×2 (13:09→20:25)
--- NOTE | 2017-11-05 14:45 | CONS ---
INFECTIOUS DISEASE CONSULTATION DATE OF CONSULTATION: 11/04/2017 REQUESTING PHYSICIAN: Rachel Bill MD HISTORY OF PRESENT ILLNESS: This is an 82-year-old woman who lives at home. She was admitted with vomiting x1 on , followed by increasing abdominal pain. There was no history of any fevers or chills. She was brought to the emergency room with these complaints. She really had stopped eating after she had the episode of vomiting. Besides the abdominal pain, she had no other complaints. ALLERGIES: She has no known drug allergies. PAST MEDICAL HISTORY: She has a history of hypertension and dementia, tqc-owybdqo-wklesxbmk diabetes, hyperlipidemia. Apparently, hypertension has now resolved. SOCIAL HISTORY: She lives at home with her family. There is no history of any cigarette use or substance use. MEDICATIONS AT HOME: Included atorvastatin, Combigan eye drops, and metformin. REVIEW OF SYSTEMS: As per HPI. Besides the vomiting and abdominal pain, she has had no other symptoms. PHYSICAL EXAMINATION: General: She is awake, alert, confused. No acute distress. She has an NG tube in place. Vital Signs: Temperature is 97.7. She is a thin woman. She weighs 88 pounds. HEENT: Normocephalic. Eyes are anicteric. Neck: Supple. Lungs: Clear to auscultation. Heart: Regular rate and rhythm. Abdomen: Soft. NG tube is in, draining bilious fluid. She has diffuse abdominal discomfort on exam. Extremities: Without edema. LABORATORY DATA: Labs are notable for a white count of 5.5, hemoglobin 10.5. BUN was 63 and creatinine 1.7. She had a CAT scan of her abdomen and pelvis done, that was notable for a high- grade small-bowel obstruction. In summary, this is an elderly woman admitted from home with constipation and abdominal pain, distention, 1 episode of vomiting. CAT scan with small-bowel obstruction. There are no signs of any perforation. No fevers or leukocytosis to suggest infection. observe off antibiotics at this time. She will require close surgical followup. INOCENCIA RODRÍGUEZ M.D. [id number] MTD
[2017-11-05] MEDS: AA 2.75 %/CALCIUM/LYTES/D7.5W 1,000 ML IVPB SCH (14:52)
--- NOTE | 2017-11-05 15:13 | CONSULT ---
Consult - text type - Consultation Consultation Note: Neurology History of Present Illness 82 yo female w/ pmh of HLD, HTN (now reportedly resolved by daughter), dementia and DM who presented for evaluation of abdominal pain. Reportedly, she vomited up her breakfast and has been reporting increasing abdominal pain since. Daughter decided to present to ER when she touched her mother's stomach and Ms. Soto reported a large amount of pain. Patient had not had a bowel movement recently but has not been eating. CT abdomen was significant for small bowel obstruction. I was consulted for dementia. During my evaluation, she is calm and resting comfortably. Does not have any imaging of head in chart, will order CT head to eval for structural changes. Not on dementia medication at this time. Will hold off for now as underlying medical issues are being addressed and will check imaging first. Past History - Past Medical History Allergies/Adverse Reactions: Allergies Allergy/AdvReac Type Severity Reaction Status Date / Time No Known Allergies Allergy Verified 11/03/17 11:39 Active Medications Brimonidine Tartrate (Alphagan 0.2% -) 1 drop OU BID [facility] Last Admin: 11/05/17 10:34 Dose: 1 drp Dorzolamide HCl (Trusopt 2%) 1 drop OU BID [facility] Last Admin: 11/05/17 10:44 Dose: 1 drop Heparin Sodium (Porcine) (Heparin -) 5,000 unit SQ BID [facility] Last Admin: 11/05/17 10:35 Dose: 5,000 unit IV Flush (Picc Line Flush) 8 ml IVPUSH PRN PRN PRN Reason: Protocol AA 2.75 %/CALCIUM/LYTES/D7.5W (Clinimix 2.75%-7.5% Solution) 1,000 mls @ 63 mls /hr IVPB Q15H [facility] Last Admin: 11/05/17 14:52 Dose: 63 mls/hr Insulin Aspart (Novolog Vial Sliding Scale -) 1 vial SQ ACHS [facility] PRN Reason: Protocol Last Admin: 11/05/17 12:06 Dose: Not Given Lorazepam (Ativan Injection -) 1 mg IVPUSH TID PRN PRN Reason: ANXIETY Last Admin: 11/05/17 13:09 Dose: 1 mg Morphine Sulfate (Morphine Injection -) 1 mg IVPUSH Q4H PRN PRN Reason: PAIN LEVEL 6-10 Last Admin: 11/05/17 10:42 Dose: 1 mg Ondansetron HCl (Zofran Injection) 4 mg IVPUSH Q6H PRN PRN Reason: NAUSEA AND/OR VOMITING Last Admin: 11/05/17 10:33 Dose: 4 mg Pantoprazole Sodium (Protonix Iv) 40 mg IVPUSH DAILY [facility] Last Admin: 11/05/17 10:45 Dose: 40 mg Review of Systems GENERAL/CONSTITUTIONAL: +Increased weakness. No fever or chills. HEAD, EYES, EARS, NOSE AND THROAT: No change in vision. No ear pain or discharge. No sore throat. CARDIOVASCULAR: No chest pain or shortness of breath RESPIRATORY: No cough, wheezing, or hemoptysis. GASTROINTESTINAL: +1 episode of nausea with vomiting (NBNB). Some constipation as described. GENITOURINARY: No dysuria, frequency, or change in urination. MUSCULOSKELETAL: No joint or muscle swelling or pain. No neck or back pain. SKIN: No rash NEUROLOGIC: No headache, vertigo, loss of consciousness, or change in strength/ sensation. ENDOCRINE: No increased thirst. No abnormal weight change HEMATOLOGIC/LYMPHATIC: No anemia, easy bleeding, or history of blood clots. ALLERGIC/IMMUNOLOGIC: No hives or skin allergy. *Physical Exam GENERAL: +Patient appears significantly dehydrated with sunken eyes and dry mucous membranes. Awake, alert, and fully oriented, in no acute distress HEAD: No signs of trauma, normocephalic, atraumatic EYES: PERRLA, EOMI, sclera anicteric, conjunctiva clear ENT: Auricles normal inspection, hearing grossly normal, nares patent, oropharynx clear without exudates. NECK: Normal ROM, supple, no lymphadenopathy, JVD, or masses LUNGS: No distress, speaks full sentences, clear to auscultation bilaterally HEART: Regular rate and rhythm, normal S1 and S2, no murmurs, rubs or gallops, peripheral pulses normal and equal bilaterally. ABDOMEN: +Diffusely tender to palpation. Soft, normoactive bowel sounds. No guarding, no rebound. No masses EXTREMITIES: Normal inspection, Normal range of motion, no edema. No clubbing or cyanosis. NEUROLOGICAL: Cranial nerves II through XII grossly intact. Normal speech, no focal sensorimotor deficits, gait deferred SKIN: +Tenting apparent. Warm, Dry, no rashes or lesions noted. CBCD WBC 6.4 K/mm3 (4.0-10.0) 11/05/17 10:50 RBC 3.78 M/mm3 (3.60-5.2) 11/05/17 10:50 Hgb 11.1 GM/dL (10.7-15.3) 11/05/17 10:50 Hct 33.6 % (32.4-45.2) 11/05/17 10:50 MCV 88.7 fl (80-96) 11/05/17 10:50 MCHC 33.2 g/dl (32.0-36.0) 11/05/17 10:50 RDW 14.8 % (11.6-15.6) 11/05/17 10:50 Plt Count 204 K/MM3 (134-434) 11/05/17 10:50 MPV 8.7 fl (7.5-11.1) 11/05/17 10:50 CMP Sodium 142 mmol/L (136-145) 11/05/17 10:50 Potassium 4.0 mmol/L (3.5-5.1) 11/05/17 10:50 Chloride 107 mmol/L (98-107) 11/05/17 10:50 Carbon Dioxide 14 mmol/L (21-32) L 11/05/17 10:50 Anion Gap 21 (8-16) H 11/05/17 10:50 BUN 45 mg/dL (7-18) H 11/05/17 10:50 Creatinine 1.1 mg/dL (0.55-1.02) H 11/05/17 10:50 Creat Clearance w eGFR 47.43 (>60) 11/05/17 10:50 Calcium 8.1 mg/dL (8.5-10.1) L 11/05/17 10:50 Total Bilirubin 1.3 mg/dL (0.2-1.0) H D 11/05/17 10:50 AST 34 U/L (15-37) 11/05/17 10:50 ALT 31 U/L (12-78) 11/05/17 10:50 Alkaline Phosphatase 61 U/L (45-117) 11/05/17 10:50 Total Protein 5.6 g/dl (6.4-8.2) L 11/05/17 10:50 Albumin 2.8 g/dl (3.4-5.0) L 11/05/17 10:50 CT abd reviewed Plan: 82 yo female w/ pmh of HLD, HTN (now reportedly resolved by daughter), dementia and DM who presented for evaluation of abdominal pain. Reportedly, she vomited up her breakfast and has been reporting increasing abdominal pain since. Daughter decided to present to ER when she touched her mother's stomach and Ms. Soto reported a large amount of pain. Patient had not had a bowel movement recently but has not been eating. CT abdomen was significant for small bowel obstruction. I was consulted for dementia. During my evaluation, she is calm and resting comfortably. Does not have any imaging of head in chart, will order CT head to eval for structural changes. Not on dementia medication at this time. Will hold off for now as underlying medical issues are being addressed and will check imaging first. Increased nutrition recommended, continue hydration. Further intervention of SBO as required. GI followup.
--- NOTE | 2017-11-05 15:26 | PN ---
Progress Note (short form) - Note Progress Note: surgery pt currently sedated. 700 output from ngt. ?small bm. 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 Pt is a poor candidate for surgery and every attempt should be made for medical management. Clinically no bowel compromise with normal wbc, no fever, and no peritoneal findings on exam. Cont ngt and npo. Oral contrast given via ngt has not migrated to colon. Suggest TPN for protein calorie malnutrition and unknown date for return of gut function. Would consider laparotomy /Saturday if no improvement.
[2017-11-05] MEDS ORDERED: PT OWN MED DRAWER 7, Y5N ONE (23:19)
[2017-11-06] MEDS: AA 2.75 %/CALCIUM/LYTES/D7.5W 1,000 ML IVPB SCH ×3 (05:12→13:42)
[2017-11-06] MEDS: INSULIN SLIDING SCALE (NOVOLOG) 1 VIAL SQ SCH ×4 (06:16→21:21)
[2017-11-06 07:57] LABS: ALBUMIN 2.4 g/dl (3.4-5.0); ANION GAP 13 (8-16); BLOOD UREA NITROGEN 39 mg/dL (7-18); CALCIUM 7.9 mg/dL (8.5-10.1); CHLORIDE 108 mmol/L (98-107); CO2 20 mmol/L (21-32); POTASSIUM 4.1 mmol/L (3.5-5.1); SGOT/AST 16 U/L (15-37); SGPT/ALT 23 U/L (12-78); SODIUM 141 mmol/L (136-145)
[2017-11-06 07:59] LABS: ALK PHOS 56 U/L (45-117); BILIRUBIN,TOTAL 0.9 mg/dL (0.2-1.0); TOT PROT 4.9 g/dl (6.4-8.2)
[2017-11-06] MEDS ORDERED: ACETAMINOPHEN 650 MG SUPP.RECT PR ONE (08:15)
[2017-11-06 08:41] LABS: GLUCOSE,RANDOM 334 mg/dL (74-106)
--- NOTE | 2017-11-06 09:25 | PN ---
Progress Note (short form) - Note Progress Note: fever this am, still with NGT agitated in mitts Vital Signs Period Temp Pulse Resp BP Sys/Fuentes Pulse Ox Last 24 Hr 97.6 F-100.9 F 88-109 18-20 140-150/65-96 96 +NGT +picc left arm no erythema cor-rrr lungs decreased bs at bases abd soft, discomfort to palpation unchanged no distention, minimal bs ext no edema CBC, BMP 11/06/17 06:20 CBC pending Microbiology 11/04/17 16:40 Blood - Peripheral Venous Blood Culture - Preliminary NO GROWTH OBTAINED AFTER 24 HOURS, INCUBATION TO CONTINUE FOR 4 DAYS. 11/04/17 17:05 Blood - Peripheral Venous Blood Culture - Preliminary NO GROWTH OBTAINED AFTER 24 HOURS, INCUBATION TO CONTINUE FOR 4 DAYS. 11/03/17 12:54 Urine - Urine - Catheterized Urine Culture - Final NO GROWTH OBTAINED a/p fever this am ?aspiration ?secondary to SBO- abdominal exam unchanged picc placed yestrday- site no erythema SBO- surgical management ongoing dementia- blood cultures ua/urine culture cxray empiric zosyn surgical f/u Problem List - Problems (1) SBO (small bowel obstruction) Code(s): K56.609 - UNSP INTESTNL OBST, UNSP TO PARTIAL VERSUS COMPLETE OBST (2) Malnourished Code(s): E46 - UNSPECIFIED PROTEIN-CALORIE MALNUTRITION
[2017-11-06] MEDS ORDERED: PIPERACILLIN/TAZOB 3.375 GM/50 ML PRE-DOCKED IVPB SCH (09:30)
--- NOTE | 2017-11-06 09:48 | PN ---
Progress Note (short form) - Note Progress Note: Neurology History of Present Illness 82 yo female w/ pmh of HLD, HTN (now reportedly resolved by daughter), dementia and DM who presented for evaluation of abdominal pain. Reportedly, she vomited up her breakfast and has been reporting increasing abdominal pain. Daughter decided to present to ER when she touched her mother's stomach and Ms. Soto reported a large amount of pain. Patient had not had a bowel movement recently but has not been eating. CT abdomen was significant for small bowel obstruction. I was consulted for dementia. During my evaluation, she is calm and resting comfortably. CT head with generalized atrophy. No acute changes noted. Surgery note reviewed, not good candidate for surgery. Medical mgmt for SBO ongoing. Active Medications Brimonidine Tartrate (Alphagan 0.2% -) 1 drop OU BID [facility] Last Admin: 11/05/17 21:22 Dose: 1 drp Dorzolamide HCl (Trusopt 2%) 1 drop OU BID [facility] Last Admin: 11/05/17 21:22 Dose: 1 drop Heparin Sodium (Porcine) (Heparin -) 5,000 unit SQ BID [facility] Last Admin: 11/05/17 21:22 Dose: 5,000 unit IV Flush (Picc Line Flush) 8 ml IVPUSH PRN PRN PRN Reason: Protocol AA 2.75 %/CALCIUM/LYTES/D7.5W (Clinimix 2.75%-7.5% Solution) 1,000 mls @ 63 mls /hr IVPB Q15H [facility] Last Admin: 11/06/17 07:12 Dose: 63 mls/hr Piperacillin Sod/Tazobactam (Sod 3.375 gm/ Dextrose) 50 mls @ 100 mls/hr IVPB Q8H-IV [facility] Insulin Aspart (Novolog Vial Sliding Scale -) 1 vial SQ ACHS [facility] PRN Reason: Protocol Last Admin: 11/06/17 06:16 Dose: 7 units Lorazepam (Ativan Injection -) 1 mg IVPUSH TID PRN PRN Reason: ANXIETY Last Admin: 11/05/17 20:25 Dose: 1 mg Morphine Sulfate (Morphine Injection -) 1 mg IVPUSH Q4H PRN PRN Reason: PAIN LEVEL 6-10 Last Admin: 11/05/17 10:42 Dose: 1 mg Ondansetron HCl (Zofran Injection) 4 mg IVPUSH Q6H PRN PRN Reason: NAUSEA AND/OR VOMITING Last Admin: 11/05/17 10:33 Dose: 4 mg Pantoprazole Sodium (Protonix Iv) 40 mg IVPUSH DAILY [facility] Last Admin: 11/05/17 10:45 Dose: 40 mg *Physical Exam Vital Signs Period Temp Pulse Resp BP Sys/Fuentes Pulse Ox Last 24 Hr 97.6 F-100.9 F 88-109 18-20 140-150/65-96 96 GENERAL: +Patient appears significantly dehydrated with sunken eyes and dry mucous membranes. Arousable HEAD: No signs of trauma, normocephalic, atraumatic EYES: PERRLA, EOMI, sclera anicteric, conjunctiva clear ENT: Auricles normal inspection, hearing grossly normal, nares patent, oropharynx clear without exudates. LUNGS: No distress, speaks full sentences, clear to auscultation bilaterally HEART: Regular rate and rhythm, normal S1 and S2, no murmurs, rubs or gallops, peripheral pulses normal and equal bilaterally. ABDOMEN: +Diffusely tender to palpation. Soft, normoactive bowel sounds. No guarding, no rebound. No masses EXTREMITIES: no edema. No clubbing or cyanosis. NEUROLOGICAL: CN grossly intact, no focal sensorimotor deficits, gait deferred SKIN: +Tenting apparent. Warm, Dry, no rashes or lesions noted. CBCD WBC 6.4 K/mm3 (4.0-10.0) 11/05/17 10:50 RBC 3.78 M/mm3 (3.60-5.2) 11/05/17 10:50 Hgb 11.1 GM/dL (10.7-15.3) 11/05/17 10:50 Hct 33.6 % (32.4-45.2) 11/05/17 10:50 MCV 88.7 fl (80-96) 11/05/17 10:50 MCHC 33.2 g/dl (32.0-36.0) 11/05/17 10:50 RDW 14.8 % (11.6-15.6) 11/05/17 10:50 Plt Count 204 K/MM3 (134-434) 11/05/17 10:50 MPV 8.7 fl (7.5-11.1) 11/05/17 10:50 CMP Sodium 141 mmol/L (136-145) 11/06/17 06:20 Potassium 4.1 mmol/L (3.5-5.1) 11/06/17 06:20 Chloride 108 mmol/L (98-107) H 11/06/17 06:20 Carbon Dioxide 20 mmol/L (21-32) L 11/06/17 06:20 Anion Gap 13 (8-16) 11/06/17 06:20 BUN 39 mg/dL (7-18) H 11/06/17 06:20 Creatinine 1.0 mg/dL (0.55-1.02) 11/06/17 06:20 Creat Clearance w eGFR 52.95 (>60) 11/06/17 06:20 Calcium 7.9 mg/dL (8.5-10.1) L 11/06/17 06:20 Total Bilirubin 0.9 mg/dL (0.2-1.0) D 11/06/17 06:20 AST 16 U/L (15-37) 11/06/17 06:20 ALT 23 U/L (12-78) 11/06/17 06:20 Alkaline Phosphatase 56 U/L (45-117) 11/06/17 06:20 Total Protein 4.9 g/dl (6.4-8.2) L 11/06/17 06:20 Albumin 2.4 g/dl (3.4-5.0) L 11/06/17 06:[address] abd reviewed Plan: 82 yo female w/ pmh of HLD, HTN (now reportedly resolved by daughter), dementia and DM who presented for evaluation of abdominal pain. Reportedly, she vomited up her breakfast and has been reporting increasing abdominal pain. Daughter decided to present to ER when she touched her mother's stomach and Ms. Soto reported a large amount of pain. Patient had not had a bowel movement recently but has not been eating. CT abdomen was significant for small bowel obstruction. I was consulted for dementia. CT head to with generalized atrophy. Not on dementia medication at this time, will start 5mg Aricept for now. Underlying medical issues are being addressed, surgery note reviewed, not surgical candidate this time. Medical mgmt occjuring. Increased nutrition recommended, continue hydration. Further intervention of SBO as required. GI followup.
[2017-11-06] MEDS ORDERED: PT OWN MED DRAWER 7, Y5N ONE ×2 (09:57→17:52)
[2017-11-06] MEDS: HEPARIN NA (PORCINE) 5,000 UNITS/ML 1ML VIAL SQ SCH ×2 (09:59→21:21)
[2017-11-06] MEDS: BRIMONIDINE TARTRATE 0.2% OPHTHALMIC 5 ML BOTTLE OU SCH ×2 (09:59→21:22)
[2017-11-06] MEDS: PANTOPRAZOLE SODIUM 40 MG VIAL IVPUSH SCH (09:59)
[2017-11-06] MEDS: PICC LINE 8 ML FLUSH PROTOCOL IVPUSH PRN (10:00)
[2017-11-06] MEDS: DORZOLAMIDE 2% HCL OPHTHALMIC SOLUTION 10 ML BOTTLE OU SCH ×2 (10:00→21:22)
[2017-11-06] MEDS ORDERED: DONEPEZIL HCL 5 MG TABLET (FP) PO SCH (10:00)
[2017-11-06] MEDS: DONEPEZIL HCL 5 MG TABLET (FP) NGT SCH (10:03)
--- NOTE | 2017-11-06 10:30 | PN ---
Progress Note, Physician Chief Complaint: SBO History of Present Illness: NAD just came back from [facility] with contrast -Pt pulled out her NGT overnight -IVF -seen by ID and surgery -trial of conservative measures -Renal consult for initiation of TPN -PICC line inserted -If no improvement in SBO by Saturday, may need surgical intervention - Current Medication List Current Medications: Active Medications Brimonidine Tartrate (Alphagan 0.2% -) 1 drop OU BID [facility] Last Admin: 11/06/17 09:59 Dose: 1 drp Donepezil HCl (Aricept -) 5 mg NGT DAILY [facility] Last Admin: 11/06/17 10:03 Dose: 5 mg Dorzolamide HCl (Trusopt 2%) 1 drop OU BID [facility] Last Admin: 11/06/17 10:00 Dose: 1 drop Heparin Sodium (Porcine) (Heparin -) 5,000 unit SQ BID [facility] Last Admin: 11/06/17 09:59 Dose: 5,000 unit IV Flush (Picc Line Flush) 8 ml IVPUSH PRN PRN PRN Reason: Protocol AA 2.75 %/CALCIUM/LYTES/D7.5W (Clinimix 2.75%-7.5% Solution) 1,000 mls @ 63 mls /hr IVPB Q15H [facility] Last Admin: 11/06/17 07:12 Dose: 63 mls/hr Piperacillin Sod/Tazobactam (Sod 3.375 gm/ Dextrose) 50 mls @ 100 mls/hr IVPB Q8H-IV [facility] Insulin Aspart (Novolog Vial Sliding Scale -) 1 vial SQ ACHS [facility] PRN Reason: Protocol Last Admin: 11/06/17 06:16 Dose: 7 units Lorazepam (Ativan Injection -) 1 mg IVPUSH TID PRN PRN Reason: ANXIETY Last Admin: 11/05/17 20:25 Dose: 1 mg Morphine Sulfate (Morphine Injection -) 1 mg IVPUSH Q4H PRN PRN Reason: PAIN LEVEL 6-10 Last Admin: 11/05/17 10:42 Dose: 1 mg Ondansetron HCl (Zofran Injection) 4 mg IVPUSH Q6H PRN PRN Reason: NAUSEA AND/OR VOMITING Last Admin: 11/05/17 10:33 Dose: 4 mg Pantoprazole Sodium (Protonix Iv) 40 mg IVPUSH DAILY [facility] Last Admin: 11/06/17 09:59 Dose: 40 mg - Objective Vital Signs: Vital Signs Temperature 100.9 F H 11/06/17 07:00 Pulse Rate 107 H 11/06/17 06:00 Respiratory Rate 18 11/06/17 06:00 Blood Pressure 140/65 11/06/17 06:00 O2 Sat by Pulse Oximetry (%) 96 11/05/17 21:00 Constitutional: Yes: No Distress, Calm, Cachectic Cardiovascular: Yes: Regular Rate and Rhythm Respiratory: Yes: Regular Gastrointestinal: Yes: Soft, Hypoactive Bowel Sounds Musculoskeletal: Yes: Muscle Weakness Edema: No Peripheral Pulses WNL: Yes Neurological: Yes: Alert, Pre-Existing Deficit Psychiatric: Yes: Alert Labs: CBC, BMP 11/06/17 06:20 Problem List - Problems (1) Malnourished Assessment/Plan: evidence by low total protein and albumin -RD consult once SBO improves -initiate TPN as recommended by renal -renal consult -PICC line -repeat AXR in AM Code(s): E46 - UNSPECIFIED PROTEIN-CALORIE MALNUTRITION (2) SBO (small bowel obstruction) Assessment/Plan: -NGT -NPO -restraints to avoid interruption in therapy -Surgery consult pending -abdominal Xray in AM -IVF with KCl -Cllinimix Code(s): K56.609 - UNSP INTESTNL OBST, UNSP TO PARTIAL VERSUS COMPLETE OBST (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
[2017-11-06 11:27] LABS: BASO % 0.1 % (0-2.0); EOS % 0.2 % (0-4.5); HEMATOCRIT 30.4 % (32.4-45.2); HEMOGLOBIN 10.5 GM/dL (10.7-15.3); LYMPH % 3.8 % (8-40); MCH 30.4 pg (25.7-33.7); MCHC 34.6 g/dl (32.0-36.0); MEAN PLT VOLUME 8.9 fl (7.5-11.1); MONO % 8.6 % (3.8-10.2); NEUT % 87.3 % (42.8-82.8); PLATELET COUNT 205 K/MM3 (134-434); RBC 3.45 M/mm3 (3.60-5.2); RDW 14.8 % (11.6-15.6); WHITE BLOOD COUNT 7.7 K/mm3 (4.0-10.0)
[2017-11-06] MEDS: MORPHINE SULFATE 10 MG/1 ML *VIAL IVPUSH PRN (11:28)
[2017-11-06] MEDS: PIPERACILLIN/TAZOB 3.375 GM 3.375 GM in DEXTROSE 5%-WATER - 50 ML IVPB SCH ×2 (12:41→17:52)
[2017-11-06] MEDS ORDERED: INSULIN (NOVOLOG) ASPART 100 UNITS/ML 10ML VIAL ONE ×2 (12:53→17:30)
[2017-11-06 12:59] LABS: URINE APPEARANCE CLEAR; URINE BILIRUBIN NEGATIVE (NEGATIVE); URINE BLOOD 1+ (NEGATIVE); URINE COLOR YELLOW; URINE GLUCOSE (UA) 3+ (NEGATIVE); URINE KETONE 1+ (NEGATIVE); URINE LEUK ESTERASE NEGATIVE (NEGATIVE); URINE NITRITE NEGATIVE (NEGATIVE); URINE UROBILINOGEN NEGATIVE mg/dL (0.2-1.0)
[2017-11-06 13:03] LABS: URINE PROTEIN 1+ (NEGATIVE)
[2017-11-06 14:20] LABS: PHOSPHOROUS 3.2 mg/dL (2.5-4.9)
[2017-11-06] MEDS: morphine SULFATE 4 MG/ML VIAL IVPUSH PRN ×2 (15:04→19:51)
--- NOTE | 2017-11-06 15:16 | PN ---
Progress Note (short form) - Note Progress Note: surgery pt seen and examined. lethargic, cachectic, ngt 600 abd- soft, moderate distension Plan- would recommend exploration tomorrow if not better. family considering comfort care only. prognosis poor. failure to thrive almost guaranteed if we operate.
--- NOTE | 2017-11-06 17:17 | PN ---
Progress Note (short form) - Note Progress Note: Renal follow up for MARIE and Malnutrition Pt seen and examied at the bedside pt is lethargic s/p PICC line placement remains NPO Vital Signs Temperature 97.3 F L 11/06/17 17:14 Pulse Rate 113 H 11/06/17 17:14 Respiratory Rate 20 11/06/17 17:14 Blood Pressure 127/77 11/06/17 17:14 O2 Sat by Pulse Oximetry (%) 97 11/06/17 09:00 Intake & Output 11/03/17 11/04/17 11/05/17 11/06/17 23:59 23:59 23:59 23:59 Intake Total 3000 800 Output Total 700 600 400 Balance -700 2400 400 Weight 40.869 kg NAD, NGT in place lethargic RRR soft, mild distension no LE edema CBC, BMP 11/06/17 06:20 11/06/17 06:20 Current Medications Brimonidine Tartrate (Alphagan 0.2% -) 1 drop OU BID [facility] Last Admin: 11/06/17 09:59 Dose: 1 drp Donepezil HCl (Aricept -) 5 mg NGT DAILY [facility] Last Admin: 11/06/17 10:03 Dose: 5 mg Dorzolamide HCl (Trusopt 2%) 1 drop OU BID [facility] Last Admin: 11/06/17 10:00 Dose: 1 drop Heparin Sodium (Porcine) (Heparin -) 5,000 unit SQ BID [facility] Last Admin: 11/06/17 09:59 Dose: 5,000 unit IV Flush (Picc Line Flush) 8 ml IVPUSH PRN PRN PRN Reason: Protocol Piperacillin Sod/Tazobactam (Sod 3.375 gm/ Dextrose) 50 mls @ 100 mls/hr IVPB Q8H-IV [facility] Last Admin: 11/06/17 12:41 Dose: 100 mls/hr AA 2.75 %/CALCIUM/LYTES/D7.5W (Clinimix 2.75%-7.5% Solution) 1,000 mls @ 63 mls /hr IVPB Q15H [facility] Last Admin: 11/06/17 13:42 Dose: 63 mls/hr Insulin Aspart (Novolog Vial Sliding Scale -) 1 vial SQ ACHS [facility] PRN Reason: Protocol Last Admin: 11/06/17 12:55 Dose: 7 units Lorazepam (Ativan Injection -) 1 mg IVPUSH TID PRN PRN Reason: ANXIETY Last Admin: 11/05/17 20:25 Dose: 1 mg Morphine Sulfate (Morphine Sulfate) 1 mg IVPUSH Q4H PRN PRN Reason: PAIN LEVEL 6-10 Last Admin: 11/06/17 15:04 Dose: 1 mg Ondansetron HCl (Zofran Injection) 4 mg IVPUSH Q6H PRN PRN Reason: NAUSEA AND/OR VOMITING Last Admin: 11/05/17 10:33 Dose: 4 mg Pantoprazole Sodium (Protonix Iv) 40 mg IVPUSH DAILY [facility] Last Admin: 11/06/17 09:59 Dose: 40 mg 82 year old woman with PMhx HTN dementia and DM who presents for evaluation of abdominal pain and found to have SBO with Cr of 1.7. #CKD/MARIE Renal function improved with IVF tend BUN/Cr and electrolytes while inpatient #SBO/NPO status/Malnutrition TPN solution not aviliable in pharmacy will continue 2.7% AA Clinimix solution dietary follow up as to when to start lipids surgical follow up Thank you Vinnie Holt DO
[2017-11-07] MEDS: AA 2.75 %/CALCIUM/LYTES/D7.5W 1,000 ML IVPB SCH ×4 (01:58→18:05)
[2017-11-07] MEDS: PIPERACILLIN/TAZOB 3.375 GM 3.375 GM in DEXTROSE 5%-WATER - 50 ML IVPB SCH ×3 (01:58→18:37)
[2017-11-07] MEDS: INSULIN SLIDING SCALE (NOVOLOG) 1 VIAL SQ SCH ×4 (06:25→22:39)
[2017-11-07 08:07] LABS: BASO % 0.1 % (0-2.0); EOS % 0.1 % (0-4.5); HEMATOCRIT 29.1 % (32.4-45.2); HEMOGLOBIN 9.7 GM/dL (10.7-15.3); LYMPH % 4.6 % (8-40); MCH 29.2 pg (25.7-33.7); MCHC 33.2 g/dl (32.0-36.0); MEAN CELL VOLUME 87.8 fl (80-96); MEAN PLT VOLUME 8.7 fl (7.5-11.1); MONO % 4.8 % (3.8-10.2); NEUT % 90.4 % (42.8-82.8); PLATELET COUNT 215 K/MM3 (134-434); RBC 3.31 M/mm3 (3.60-5.2); RDW 14.8 % (11.6-15.6); WHITE BLOOD COUNT 7.8 K/mm3 (4.0-10.0)
[2017-11-07 08:34] LABS: BLOOD UREA NITROGEN 33 mg/dL (7-18); CHLORIDE 110 mmol/L (98-107); POTASSIUM 3.8 mmol/L (3.5-5.1); SODIUM 143 mmol/L (136-145)
[2017-11-07 08:43] LABS: ALBUMIN 2.2 g/dl (3.4-5.0); ALK PHOS 58 U/L (45-117); ANION GAP 10 (8-16); BILIRUBIN,TOTAL 0.8 mg/dL (0.2-1.0); CALCIUM 8.1 mg/dL (8.5-10.1); CHOLESTEROL 75 mg/dL (50-200); CO2 23 mmol/L (21-32); HDL CHOLESTEROL 17 mg/dL (40-60); LDL CHOLESTEROL (ONLY SJRH) 30 mg/dL (5-100); PHOSPHOROUS 3.1 mg/dL (2.5-4.9); SGOT/AST 17 U/L (15-37); SGPT/ALT 21 U/L (12-78); TOT PROT 4.9 g/dl (6.4-8.2); TRIGLYCERIDES 95 mg/dL (35-160)
[2017-11-07 09:02] LABS: GLUCOSE,RANDOM 321 mg/dL (74-106)
--- NOTE | 2017-11-07 09:55 | PN ---
Progress Note (short form) - Note Progress Note: Neurology History of Present Illness 82 yo female w/ pmh of HLD, HTN (now reportedly resolved by daughter), dementia and DM who presented for evaluation of abdominal pain. Reportedly, she vomited up her breakfast and has been reporting increasing abdominal pain. Daughter decided to present to ER when she touched her mother's stomach and Ms. Soto reported a large amount of pain. Patient had not had a bowel movement recently but has not been eating. CT abdomen was significant for small bowel obstruction. I was consulted for dementia. During my evaluation, she is calm and resting comfortably. CT head with generalized atrophy. No acute changes noted. Ordered Aricept. Medical mgmt for SBO ongoing. Surgery also on board. Mental status remains the same. Active Medications Brimonidine Tartrate (Alphagan 0.2% -) 1 drop OU BID [facility] Last Admin: 11/06/17 21:22 Dose: 1 drp Donepezil HCl (Aricept -) 5 mg NGT DAILY [facility] Last Admin: 11/06/17 10:03 Dose: 5 mg Dorzolamide HCl (Trusopt 2%) 1 drop OU BID [facility] Last Admin: 11/06/17 21:22 Dose: 1 drop Heparin Sodium (Porcine) (Heparin -) 5,000 unit SQ BID [facility] Last Admin: 11/06/17 21:21 Dose: 5,000 unit IV Flush (Picc Line Flush) 8 ml IVPUSH PRN PRN PRN Reason: Protocol Last Admin: 11/06/17 10:00 Dose: 8 ml Piperacillin Sod/Tazobactam (Sod 3.375 gm/ Dextrose) 50 mls @ 100 mls/hr IVPB Q8H-IV [facility] Last Admin: 11/07/17 01:58 Dose: 100 mls/hr AA 2.75 %/CALCIUM/LYTES/D7.5W (Clinimix 2.75%-7.5% Solution) 1,000 mls @ 63 mls /hr IVPB Q15H [facility] Last Admin: 11/07/17 07:41 Dose: Not Given Insulin Aspart (Novolog Vial Sliding Scale -) 1 vial SQ ACHS [facility] PRN Reason: Protocol Last Admin: 11/07/17 06:25 Dose: 7 units Lorazepam (Ativan Injection -) 1 mg IVPUSH TID PRN PRN Reason: ANXIETY Last Admin: 11/05/17 20:25 Dose: 1 mg Morphine Sulfate (Morphine Sulfate) 1 mg IVPUSH Q4H PRN PRN Reason: PAIN LEVEL 6-10 Last Admin: 11/06/17 19:51 Dose: 1 mg Ondansetron HCl (Zofran Injection) 4 mg IVPUSH Q6H PRN PRN Reason: NAUSEA AND/OR VOMITING Last Admin: 11/05/17 10:33 Dose: 4 mg Pantoprazole Sodium (Protonix Iv) 40 mg IVPUSH DAILY [facility] Last Admin: 11/06/17 09:59 Dose: 40 mg *Physical Exam Vital Signs Period Temp Pulse Resp BP Sys/Fuentes Pulse Ox Last 24 Hr 97.3 F-98.2 F 108-113 18-20 127-163/68-91 97 GENERAL: +Patient appears significantly dehydrated with sunken eyes and dry mucous membranes. Arousable HEAD: No signs of trauma, normocephalic, atraumatic EYES: PERRLA, EOMI, sclera anicteric, conjunctiva clear ENT: Auricles normal inspection, hearing grossly normal, nares patent, oropharynx clear without exudates. LUNGS: No distress, speaks full sentences, clear to auscultation bilaterally HEART: Regular rate and rhythm, normal S1 and S2, no murmurs, rubs or gallops, peripheral pulses normal and equal bilaterally. ABDOMEN: +Diffusely tender to palpation. Soft, normoactive bowel sounds. No guarding, no rebound. No masses EXTREMITIES: no edema. No clubbing or cyanosis. NEUROLOGICAL: CN grossly intact, no focal sensorimotor deficits, gait deferred SKIN: +Tenting apparent. Warm, Dry, no rashes or lesions noted. CBCD WBC 7.8 K/mm3 (4.0-10.0) 11/07/17 06:30 RBC 3.31 M/mm3 (3.60-5.2) L 11/07/17 06:30 Hgb 9.7 GM/dL (10.7-15.3) L 11/07/17 06:30 Hct 29.1 % (32.4-45.2) L 11/07/17 06:30 MCV 87.8 fl (80-96) 11/07/17 06:30 MCHC 33.2 g/dl (32.0-36.0) 11/07/17 06:30 RDW 14.8 % (11.6-15.6) 11/07/17 06:30 Plt Count 215 K/MM3 (134-434) 11/07/17 06:30 MPV 8.7 fl (7.5-11.1) 11/07/17 06:30 CMP Sodium 143 mmol/L (136-145) 11/07/17 06:30 Potassium 3.8 mmol/L (3.5-5.1) 11/07/17 06:30 Chloride 110 mmol/L (98-107) H 11/07/17 06:30 Carbon Dioxide 23 mmol/L (21-32) 11/07/17 06:30 Anion Gap 10 (8-16) 11/07/17 06:30 BUN 33 mg/dL (7-18) H 11/07/17 06:30 Creatinine 1.0 mg/dL (0.55-1.02) 11/07/17 06:30 Creat Clearance w eGFR 52.95 (>60) 11/07/17 06:30 Calcium 8.1 mg/dL (8.5-10.1) L 11/07/17 06:30 Total Bilirubin 0.8 mg/dL (0.2-1.0) 11/07/17 06:30 AST 17 U/L (15-37) 11/07/17 06:30 ALT 21 U/L (12-78) 11/07/17 06:30 Alkaline Phosphatase 58 U/L (45-117) 11/07/17 06:30 Total Protein 4.9 g/dl (6.4-8.2) L 11/07/17 06:30 Albumin 2.2 g/dl (3.4-5.0) L 11/07/17 06:[address] abd reviewed Plan: 82 yo female w/ pmh of HLD, HTN (now reportedly resolved by daughter), dementia and DM who presented for evaluation of abdominal pain. Reportedly, she vomited up her breakfast and has been reporting increasing abdominal pain. Daughter decided to present to ER when she touched her mother's stomach and Ms. Soto reported a large amount of pain. Patient had not had a bowel movement recently but has not been eating. CT abdomen was significant for small bowel obstruction. I was consulted for dementia. CT head to with generalized atrophy. Not on dementia medication at this time, ordered 5mg Aricept. Underlying medical issues are being addressed, surgery note reviewed, not surgical candidate this time. Medical mgmt occjuring. Increased nutrition recommended, continue hydration. Further intervention of SBO as required. GI followup. Mental status stable at this time.
[2017-11-07] MEDS ORDERED: PT OWN MED DRAWER 7, Y5N ONE ×2 (10:05→18:26)
[2017-11-07] MEDS ORDERED: MORPHINE SULFATE 10 MG/1 ML *VIAL IVPUSH PRN (10:08)
[2017-11-07] MEDS: HEPARIN NA (PORCINE) 5,000 UNITS/ML 1ML VIAL SQ SCH ×2 (10:09→22:38)
[2017-11-07] MEDS: PICC LINE 8 ML FLUSH PROTOCOL IVPUSH PRN (10:10)
[2017-11-07] MEDS: PANTOPRAZOLE SODIUM 40 MG VIAL IVPUSH SCH (10:10)
--- NOTE | 2017-11-07 10:30 | PN ---
Progress Note, Physician Chief Complaint: SBO History of Present Illness: -NAD -IVF -seen by ID and surgery -trial of conservative measures -Renal consult for initiation of TPN -PICC line -If no improvement in SBO by Saturday, may need surgical intervention -awaiting KUB today - Current Medication List Current Medications: Active Medications Brimonidine Tartrate (Alphagan 0.2% -) 1 drop OU BID [facility] Last Admin: 11/06/17 21:22 Dose: 1 drp Donepezil HCl (Aricept -) 5 mg NGT DAILY [facility] Last Admin: 11/06/17 10:03 Dose: 5 mg Dorzolamide HCl (Trusopt 2%) 1 drop OU BID [facility] Last Admin: 11/06/17 21:22 Dose: 1 drop Heparin Sodium (Porcine) (Heparin -) 5,000 unit SQ BID [facility] Last Admin: 11/07/17 10:09 Dose: 5,000 unit IV Flush (Picc Line Flush) 8 ml IVPUSH PRN PRN PRN Reason: Protocol Last Admin: 11/07/17 10:10 Dose: 8 ml Piperacillin Sod/Tazobactam (Sod 3.375 gm/ Dextrose) 50 mls @ 100 mls/hr IVPB Q8H-IV [facility] Last Admin: 11/07/17 10:10 Dose: 100 mls/hr AA 2.75 %/CALCIUM/LYTES/D7.5W (Clinimix 2.75%-7.5% Solution) 1,000 mls @ 63 mls /hr IVPB Q15H [facility] Last Admin: 11/07/17 07:41 Dose: Not Given Insulin Aspart (Novolog Vial Sliding Scale -) 1 vial SQ ACHS [facility] PRN Reason: Protocol Last Admin: 11/07/17 06:25 Dose: 7 units Lorazepam (Ativan Injection -) 1 mg IVPUSH TID PRN PRN Reason: ANXIETY Last Admin: 11/05/17 20:25 Dose: 1 mg Morphine Sulfate (Morphine Injection -) 1 mg IVPUSH Q4H PRN PRN Reason: PAIN LEVEL 6-10 Last Admin: 11/07/17 10:14 Dose: 1 mg Ondansetron HCl (Zofran Injection) 4 mg IVPUSH Q6H PRN PRN Reason: NAUSEA AND/OR VOMITING Last Admin: 11/05/17 10:33 Dose: 4 mg Pantoprazole Sodium (Protonix Iv) 40 mg IVPUSH DAILY [facility] Last Admin: 11/07/17 10:10 Dose: 40 mg - Objective Vital Signs: Vital Signs Temperature 97.3 F L 11/06/17 17:14 Pulse Rate 113 H 11/06/17 17:14 Respiratory Rate 18 11/07/17 06:51 Blood Pressure 163/91 11/07/17 06:51 O2 Sat by Pulse Oximetry (%) 97 11/06/17 21:00 Constitutional: Yes: No Distress, Calm, Cachectic Cardiovascular: Yes: Regular Rate and Rhythm Respiratory: Yes: Regular Gastrointestinal: Yes: Hypoactive Bowel Sounds, Tenderness Musculoskeletal: Yes: Muscle Weakness Extremities: Yes: WNL Edema: No Peripheral Pulses WNL: Yes Neurological: Yes: Alert, Pre-Existing Deficit Psychiatric: Yes: Alert Labs: CBC, BMP 11/07/17 06:30 11/07/17 06:30 Problem List - Problems (1) Malnourished Assessment/Plan: evidence by low total protein and albumin -RD consult once SBO improves -TPN unavailable in the hospital at this time -on Clinimix -renal consult -PICC line -repeat AXR today Code(s): E46 - UNSPECIFIED PROTEIN-CALORIE MALNUTRITION (2) SBO (small bowel obstruction) Assessment/Plan: -NGT -NPO -restraints to avoid interruption in therapy -Surgery consult -abdominal Xray today -IVF with KCl -Cllinimix Code(s): K56.609 - UNSP INTESTNL OBST, UNSP TO PARTIAL VERSUS COMPLETE OBST (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
[2017-11-07] MEDS: BRIMONIDINE TARTRATE 0.2% OPHTHALMIC 5 ML BOTTLE OU SCH ×2 (10:33→22:38)
[2017-11-07] MEDS: DORZOLAMIDE 2% HCL OPHTHALMIC SOLUTION 10 ML BOTTLE OU SCH ×2 (10:34→22:40)
[2017-11-07 11:17] LABS: MAGNESIUM 1.8 mg/dL (1.8-2.4)
[2017-11-07] MEDS ORDERED: INSULIN (NOVOLOG) ASPART 100 UNITS/ML 10ML VIAL ONE (12:48)
--- NOTE | 2017-11-07 13:45 | PN ---
Progress Note (short form) - Note Progress Note: surgery pt seen and examined. still with ngt. no bm. no flatus. kub no change abd- soft, nt, moderate distension Plan- offered laparotomy and family declines. they choose continued medical managment and not comfort care. prognosis poor. will be available
[2017-11-07] MEDS: MORPHINE SULFATE 10 MG/1 ML *VIAL IVPUSH PRN ×2 (13:48→20:14)
--- NOTE | 2017-11-07 13:48 | PN ---
Progress Note, Physician Chief Complaint: ID Agitated appears in pain Zosyn T max 100.9 - Current Medication List Current Medications: Active Medications Brimonidine Tartrate (Alphagan 0.2% -) 1 drop OU BID [facility] Last Admin: 11/07/17 10:33 Dose: 1 drp Donepezil HCl (Aricept -) 5 mg NGT DAILY [facility] Last Admin: 11/06/17 10:03 Dose: 5 mg Dorzolamide HCl (Trusopt 2%) 1 drop OU BID [facility] Last Admin: 11/07/17 10:34 Dose: 1 drop Fat Emulsion Intravenous (Intralipid -) 250 ml IV DAILY@2200 [facility] Heparin Sodium (Porcine) (Heparin -) 5,000 unit SQ BID [facility] Last Admin: 11/07/17 10:09 Dose: 5,000 unit IV Flush (Picc Line Flush) 8 ml IVPUSH PRN PRN PRN Reason: Protocol Last Admin: 11/07/17 10:10 Dose: 8 ml Piperacillin Sod/Tazobactam (Sod 3.375 gm/ Dextrose) 50 mls @ 100 mls/hr IVPB Q8H-IV [facility] Last Admin: 11/07/17 10:10 Dose: 100 mls/hr AA 2.75 %/CALCIUM/LYTES/D7.5W (Clinimix 2.75%-7.5% Solution) 1,000 mls @ 63 mls /hr IVPB Q15H [facility] Last Admin: 11/07/17 07:41 Dose: Not Given Insulin Aspart (Novolog Vial Sliding Scale -) 1 vial SQ ACHS [facility] PRN Reason: Protocol Last Admin: 11/07/17 12:55 Dose: 5 units Lorazepam (Ativan Injection -) 1 mg IVPUSH TID PRN PRN Reason: ANXIETY Last Admin: 11/05/17 20:25 Dose: 1 mg Morphine Sulfate (Morphine Injection -) 1 mg IVPUSH Q4H PRN PRN Reason: PAIN LEVEL 6-10 Last Admin: 11/07/17 10:14 Dose: 1 mg Multivitamins/Minerals (Infuvite Adult -) 10 ml IV DAILY [facility] Ondansetron HCl (Zofran Injection) 4 mg IVPUSH Q6H PRN PRN Reason: NAUSEA AND/OR VOMITING Last Admin: 11/05/17 10:33 Dose: 4 mg Pantoprazole Sodium (Protonix Iv) 40 mg IVPUSH DAILY [facility] Last Admin: 11/07/17 10:10 Dose: 40 mg - Objective Vital Signs: Vital Signs Temperature 97.3 F L 11/06/17 17:14 Pulse Rate 113 H 11/06/17 17:14 Respiratory Rate 18 11/07/17 06:51 Blood Pressure 163/91 11/07/17 06:51 O2 Sat by Pulse Oximetry (%) 97 11/06/17 21:00 Constitutional: Yes: Mild Distress Neck: Yes: WNL, Supple Cardiovascular: Yes: Regular Rate and Rhythm, S1, S2. No: Murmur Respiratory: Yes: WNL, Regular, CTA Bilaterally Gastrointestinal: Yes: Soft, Distention, Tenderness Edema: No Labs: CBC, BMP 11/07/17 06:30 11/07/17 06:30 Assessment/Plan Microbiology 11/06/17 11:30 Urine - Urine - Catheterized Urine Culture - Final NO GROWTH OBTAINED 11/03/17 12:54 Urine - Urine - Catheterized Urine Culture - Final NO GROWTH OBTAINED 11/06/17 11:30 Blood - Picc Line Blood Culture - Preliminary NO GROWTH OBTAINED AFTER 24 HOURS, INCUBATION TO CONTINUE FOR 4 DAYS. 11/06/17 08:50 Blood - Peripheral Venous Blood Culture - Preliminary NO GROWTH OBTAINED AFTER 24 HOURS, INCUBATION TO CONTINUE FOR 4 DAYS. 11/04/17 17:05 Blood - Peripheral Venous Blood Culture - Preliminary NO GROWTH OBTAINED AFTER 48 HOURS, INCUBATION TO CONTINUE FOR 3 DAYS. 11/04/17 16:40 Blood - Peripheral Venous Blood Culture - Preliminary NO GROWTH OBTAINED AFTER 48 HOURS, INCUBATION TO CONTINUE FOR 3 DAYS. Laboratory Tests 11/07/17 11/07/17 06:30 06:30 WBC 7.8 Hgb 9.7 L Hct 29.1 L Plt Count 215 BUN 33 H Assessment High grade bowel obstruction Fever ? translocation of bacteria empiric therapy Plan Discussed with surgery Patient a poor operative candidate HIgh risk for morbitity and mortatlity Magalie JIMENEZ
[2017-11-07] MEDS: MULTIVIT INJ. ADULT COMBO WITH VIT K 1 COMBO 10 ML VIAL IV SCH (15:38)
--- NOTE | 2017-11-07 19:05 | PN ---
Progress Note (short form) - Note Progress Note: Renal follow up for MARIE and Malnutrition Pt seen and examined at the bedside no overnight events has some abd pain Vital Signs Temperature 97.9 F 11/07/17 17:07 Pulse Rate 111 H 11/07/17 17:07 Respiratory Rate 20 11/07/17 17:07 Blood Pressure 130/73 11/07/17 17:07 O2 Sat by Pulse Oximetry (%) 97 11/07/17 09:00 NAD, NGT in place lethargic RRR soft, mild distension no LE edema CBC, BMP 11/07/17 06:30 11/07/17 06:30 Current Medications Brimonidine Tartrate (Alphagan 0.2% -) 1 drop OU BID [facility] Last Admin: 11/07/17 10:33 Dose: 1 drp Donepezil HCl (Aricept -) 5 mg NGT DAILY [facility] Last Admin: 11/06/17 10:03 Dose: 5 mg Dorzolamide HCl (Trusopt 2%) 1 drop OU BID [facility] Last Admin: 11/07/17 10:34 Dose: 1 drop Heparin Sodium (Porcine) (Heparin -) 5,000 unit SQ BID [facility] Last Admin: 11/07/17 10:09 Dose: 5,000 unit IV Flush (Picc Line Flush) 8 ml IVPUSH PRN PRN PRN Reason: Protocol Last Admin: 11/07/17 10:10 Dose: 8 ml Piperacillin Sod/Tazobactam (Sod 3.375 gm/ Dextrose) 50 mls @ 100 mls/hr IVPB Q8H-IV [facility] Last Admin: 11/07/17 18:37 Dose: 100 mls/hr AA 2.75 %/CALCIUM/LYTES/D7.5W (Clinimix 2.75%-7.5% Solution) 1,000 mls @ 63 mls /hr IVPB Q15H [facility] Last Admin: 11/07/17 18:05 Dose: Not Given Fat Emulsion Intravenous (Intralipid -) 250 mls @ 20.833 mls/hr IV DAILY@2200 [facility] Insulin Aspart (Novolog Vial Sliding Scale -) 1 vial SQ ACHS [facility] PRN Reason: Protocol Last Admin: 11/07/17 18:38 Dose: 2 units Lorazepam (Ativan Injection -) 1 mg IVPUSH TID PRN PRN Reason: ANXIETY Last Admin: 11/05/17 20:25 Dose: 1 mg Morphine Sulfate (Morphine Injection -) 2 mg IVPUSH Q2H PRN PRN Reason: PAIN LEVEL 4 - 6 Last Admin: 11/07/17 13:48 Dose: 2 mg Multivitamins/Minerals (Infuvite Adult -) 10 ml IV Q24H [facility] Last Admin: 11/07/17 15:38 Dose: 10 ml Ondansetron HCl (Zofran Injection) 4 mg IVPUSH Q6H PRN PRN Reason: NAUSEA AND/OR VOMITING Last Admin: 11/05/17 10:33 Dose: 4 mg Pantoprazole Sodium (Protonix Iv) 40 mg IVPUSH DAILY [facility] Last Admin: 11/07/17 10:10 Dose: 40 mg 82 year old woman with PMhx HTN dementia and DM who presents for evaluation of abdominal pain and found to have SBO with Cr of 1.7. #CKD/MARIE Renal function improved with IVF tend BUN/Cr and electrolytes while inpatient #SBO/NPO status/Malnutrition TPN solution not available in pharmacy will contine 2% clinimix solution will add lipids daily Trend labs and electrolytes Thank you Vinnie Holt DO
[2017-11-07] MEDS ORDERED: FAT EMULSIONS 20% 250 ML PREMIX INFUS.BAG IV SCH (22:00)
[2017-11-07] MEDS: FAT EMULSIONS 250 ML IV SCH (22:39)
[2017-11-08] MEDS: PIPERACILLIN/TAZOB 3.375 GM 3.375 GM in DEXTROSE 5%-WATER - 50 ML IVPB SCH ×3 (01:42→18:19)
[2017-11-08] MEDS: MORPHINE SULFATE 10 MG/1 ML *VIAL IVPUSH PRN ×3 (02:47→23:15)
[2017-11-08] MEDS: INSULIN SLIDING SCALE (NOVOLOG) 1 VIAL SQ SCH ×3 (06:38→17:23)
--- NOTE | 2017-11-08 09:06 | PN ---
Physical Exam: SUBJECTIVE: Patient seen and examined. She is lying in bed, moaning and writhing. She responds yes to her name but otherwise is not communicating. OBJECTIVE: Vital Signs Period Temp Pulse Resp BP Sys/Fuentes Pulse Ox Last 24 Hr 97.7 F-98.8 F 110-120 20-20 126-146/73-88 97 GENERAL: The patient is awake, alert, in moderate distress. LUNGS: Breath sounds equal, clear to auscultation bilaterally, no wheezes, no crackles, no accessory muscle use. HEART: Regular rhythm, tachycardic, S1, S2, (+) 2/6 systolic murmur ABDOMEN: Soft, mildly distended, hypoactive bowel sounds, (+) diffuse tenderness , no hepatosplenomegaly, no masses. EXTREMITIES: 2+ pulses, warm, well-perfused, no edema. Laboratory Results - last 24 hr 11/07/17 11/07/17 11/07/17 06:30 12:53 18:38 POC Glucometer 252 237 Random Glucose 321 H* Magnesium 1.8 11/07/17 11/08/17 22:34 06:36 POC Glucometer 245 352 Random Glucose Magnesium Active Medications Generic Name Dose Route Start Last Admin Trade Name Freq PRN Reason Stop Dose Admin Brimonidine Tartrate 1 drop 11/03/17 22:00 11/07/17 22:38 Alphagan 0.2% - OU 1 drp BID [facility] Administration Donepezil HCl 5 mg 11/06/17 10:00 11/06/17 10:03 Aricept - NGT 5 mg DAILY [facility] Administration Dorzolamide HCl 1 drop 11/03/17 22:00 11/07/17 22:40 Trusopt 2% OU 1 drop BID [facility] Administration Heparin Sodium (Porcine) 5,000 unit 11/03/17 22:00 11/07/17 22:38 Heparin - SQ 5,000 unit BID [facility] Administration IV Flush 8 ml 11/05/17 10:36 11/07/17 10:10 Picc Line Flush IVPUSH 8 ml PRN PRN Administration Protocol Piperacillin Sod/Tazobactam 50 mls @ 100 mls/hr 11/06/17 10:00 11/08/17 01:42 Sod 3.375 gm/ Dextrose IVPB 100 mls/hr Q8H-IV [facility] Administration AA 2.75 %/CALCIUM/LYTES/D7.5W 1,000 mls @ 63 mls/hr 11/06/17 13:00 11/07/17 18:05 Clinimix 2.75%-7.5% Solution IVPB Not Given Q15H [facility] Fat Emulsion Intravenous 250 mls @ 20.833 mls/hr 11/07/17 22:00 11/07/17 22: 39 Intralipid - IV 20.833 mls/hr DAILY@2200 [facility] Administration Insulin Aspart 1 vial 11/03/17 22:00 11/08/17 06:38 Novolog Vial Sliding Scale - SQ 10 units ACHS [facility] Administration Protocol Lorazepam 1 mg 11/05/17 10:35 11/05/17 20:25 Ativan Injection - IVPUSH 1 mg TID PRN Administration ANXIETY Morphine Sulfate 2 mg 11/07/17 13:41 11/08/17 02:47 Morphine Injection - IVPUSH 2 mg Q2H PRN Administration PAIN LEVEL 4 - 6 Multivitamins/Minerals 10 ml 11/07/17 15:30 11/07/17 15:38 Infuvite Adult - IV 10 ml Q24H [facility] Administration Ondansetron HCl 4 mg 11/04/17 10:33 11/05/17 10:33 Zofran Injection IVPUSH 4 mg Q6H PRN Administration NAUSEA AND/OR VOMITING Pantoprazole Sodium 40 mg 11/03/17 21:15 11/07/17 10:10 Protonix Iv IVPUSH 40 mg DAILY [facility] Administration ASSESSMENT/PLAN: 1. Small bowel obstruction - Family does not want surgical intervention - Maintain NG tube - Continue IV fluid - Morphine as needed for pain - Zofran as needed for nausea/vomiting 2. Severe protein calorie malnutrition - Continue PPN 3. Dementia - Continue Aricept, Ativan as needed 4. Hypertension - On no medications 5. Hyperlipidemia - Lipitor on hold while NPO 6. Type 2 DM - Metformin on hold - Sugars high on PPN with Novolog sliding scale - Start Levemir 7. Acute kidney injury on stage 3 CKD - Resolved Visit type - Emergency Visit Emergency Visit: Yes ED Registration Date: 11/03/17 Care time: The patient presented to the Emergency Department on the above date and was hospitalized for further evaluation of their emergent condition. - New Patient This patient is new to me today: Yes Date on this admission: 11/08/17 - Critical Care Critical Care patient: No - Discharge Referral Referred to [facility] No
--- NOTE | 2017-11-08 09:31 | PN ---
Progress Note (short form) - Note Progress Note: Neurology History of Present Illness 82 yo female w/ pmh of HLD, HTN (now reportedly resolved by daughter), dementia and DM who presented for evaluation of abdominal pain. Reportedly, she vomited up her breakfast and has been reporting increasing abdominal pain. Daughter decided to present to ER when she touched her mother's stomach and Ms. Soto reported a large amount of pain. Patient had not had a bowel movement recently but has not been eating. CT abdomen was significant for small bowel obstruction. I was consulted for dementia. Has been calm and resting comfortably. CT head with generalized atrophy. No acute changes noted. Ordered Aricept. Medical mgmt for SBO ongoing. Surgery also on board. Mental status remains the same. No significant changes Active Medications Brimonidine Tartrate (Alphagan 0.2% -) 1 drop OU BID [facility] Last Admin: 11/07/17 22:38 Dose: 1 drp Donepezil HCl (Aricept -) 5 mg NGT DAILY [facility] Last Admin: 11/06/17 10:03 Dose: 5 mg Dorzolamide HCl (Trusopt 2%) 1 drop OU BID [facility] Last Admin: 11/07/17 22:40 Dose: 1 drop Heparin Sodium (Porcine) (Heparin -) 5,000 unit SQ BID [facility] Last Admin: 11/07/17 22:38 Dose: 5,000 unit IV Flush (Picc Line Flush) 8 ml IVPUSH PRN PRN PRN Reason: Protocol Last Admin: 11/07/17 10:10 Dose: 8 ml Piperacillin Sod/Tazobactam (Sod 3.375 gm/ Dextrose) 50 mls @ 100 mls/hr IVPB Q8H-IV [facility] Last Admin: 11/08/17 01:42 Dose: 100 mls/hr AA 2.75 %/CALCIUM/LYTES/D7.5W (Clinimix 2.75%-7.5% Solution) 1,000 mls @ 63 mls /hr IVPB Q15H [facility] Last Admin: 11/07/17 18:05 Dose: Not Given Fat Emulsion Intravenous (Intralipid -) 250 mls @ 20.833 mls/hr IV DAILY@2200 [facility] Last Admin: 11/07/17 22:39 Dose: 20.833 mls/hr Insulin Aspart (Novolog Vial Sliding Scale -) 1 vial SQ ACHS [facility] PRN Reason: Protocol Last Admin: 11/08/17 06:38 Dose: 10 units Lorazepam (Ativan Injection -) 1 mg IVPUSH TID PRN PRN Reason: ANXIETY Last Admin: 11/05/17 20:25 Dose: 1 mg Morphine Sulfate (Morphine Injection -) 2 mg IVPUSH Q2H PRN PRN Reason: PAIN LEVEL 4 - 6 Last Admin: 11/08/17 02:47 Dose: 2 mg Multivitamins/Minerals (Infuvite Adult -) 10 ml IV Q24H [facility] Last Admin: 11/07/17 15:38 Dose: 10 ml Ondansetron HCl (Zofran Injection) 4 mg IVPUSH Q6H PRN PRN Reason: NAUSEA AND/OR VOMITING Last Admin: 11/05/17 10:33 Dose: 4 mg Pantoprazole Sodium (Protonix Iv) 40 mg IVPUSH DAILY [facility] Last Admin: 11/07/17 10:10 Dose: 40 mg *Physical Exam Vital Signs Period Temp Pulse Resp BP Sys/Fuentes Pulse Ox Last 24 Hr 97.7 F-98.8 F 110-120 20-20 126-146/73-88 97 GENERAL: +Patient appears significantly dehydrated with sunken eyes and dry mucous membranes. Arousable HEAD: No signs of trauma, normocephalic, atraumatic EYES: PERRLA, EOMI, sclera anicteric, conjunctiva clear ENT: Auricles normal inspection, hearing grossly normal, nares patent, oropharynx clear without exudates. LUNGS: No distress, speaks full sentences, clear to auscultation bilaterally HEART: Regular rate and rhythm, normal S1 and S2, no murmurs, rubs or gallops, peripheral pulses normal and equal bilaterally. ABDOMEN: +Diffusely tender to palpation. Soft, normoactive bowel sounds. No guarding, no rebound. No masses EXTREMITIES: no edema. No clubbing or cyanosis. NEUROLOGICAL: CN grossly intact, no focal sensorimotor deficits, gait deferred SKIN: +Tenting apparent. Warm, Dry, no rashes or lesions noted. CBCD WBC 7.8 K/mm3 (4.0-10.0) 11/07/17 06:30 RBC 3.31 M/mm3 (3.60-5.2) L 11/07/17 06:30 Hgb 9.7 GM/dL (10.7-15.3) L 11/07/17 06:30 Hct 29.1 % (32.4-45.2) L 11/07/17 06:30 MCV 87.8 fl (80-96) 11/07/17 06:30 MCHC 33.2 g/dl (32.0-36.0) 11/07/17 06:30 RDW 14.8 % (11.6-15.6) 11/07/17 06:30 Plt Count 215 K/MM3 (134-434) 11/07/17 06:30 MPV 8.7 fl (7.5-11.1) 11/07/17 06:30 CMP Sodium 143 mmol/L (136-145) 11/07/17 06:30 Potassium 3.8 mmol/L (3.5-5.1) 11/07/17 06:30 Chloride 110 mmol/L (98-107) H 11/07/17 06:30 Carbon Dioxide 23 mmol/L (21-32) 11/07/17 06:30 Anion Gap 10 (8-16) 11/07/17 06:30 BUN 33 mg/dL (7-18) H 11/07/17 06:30 Creatinine 1.0 mg/dL (0.55-1.02) 11/07/17 06:30 Creat Clearance w eGFR 52.95 (>60) 11/07/17 06:30 Calcium 8.1 mg/dL (8.5-10.1) L 11/07/17 06:30 Total Bilirubin 0.8 mg/dL (0.2-1.0) 11/07/17 06:30 AST 17 U/L (15-37) 11/07/17 06:30 ALT 21 U/L (12-78) 11/07/17 06:30 Alkaline Phosphatase 58 U/L (45-117) 11/07/17 06:30 Total Protein 4.9 g/dl (6.4-8.2) L 11/07/17 06:30 Albumin 2.2 g/dl (3.4-5.0) L 11/07/17 06:[address] abd reviewed Plan: 82 yo female w/ pmh of HLD, HTN (now reportedly resolved by daughter), dementia and DM who presented for evaluation of abdominal pain. Reportedly, she vomited up her breakfast and has been reporting increasing abdominal pain. Daughter decided to present to ER when she touched her mother's stomach and Ms. Soto reported a large amount of pain. Patient had not had a bowel movement recently but has not been eating. CT abdomen was significant for small bowel obstruction. I was consulted for dementia. CT head to with generalized atrophy. Not on dementia medication at this time, ordered 5mg Aricept. Underlying medical issues are being addressed, surgery note reviewed, not surgical candidate this time. Medical mgmt occjuring. Increased nutrition recommended, continue hydration. Further intervention of SBO as required. GI followup. Mental status stable at this time. No further rec'd at this time.
[2017-11-08] MEDS ORDERED: PT OWN MED DRAWER 7, Y5N ONE ×3 (10:05→18:14)
[2017-11-08] MEDS: BRIMONIDINE TARTRATE 0.2% OPHTHALMIC 5 ML BOTTLE OU SCH ×2 (10:07→23:50)
[2017-11-08] MEDS: PANTOPRAZOLE SODIUM 40 MG VIAL IVPUSH SCH (10:07)
[2017-11-08] MEDS: HEPARIN NA (PORCINE) 5,000 UNITS/ML 1ML VIAL SQ SCH ×2 (10:07→23:50)
[2017-11-08] MEDS: AA 2.75 %/CALCIUM/LYTES/D7.5W 1,000 ML IVPB SCH (10:08)
[2017-11-08] MEDS: DORZOLAMIDE 2% HCL OPHTHALMIC SOLUTION 10 ML BOTTLE OU SCH ×2 (10:09→23:50)
--- NOTE | 2017-11-08 10:12 | PN ---
Progress Note (short form) - Note Progress Note: agitated at times, otherwise resting comfortably Vital Signs Period Temp Pulse Resp BP Sys/Fuentes Pulse Ox Last 24 Hr 97.7 F-98.8 F 110-120 20-20 126-146/73-88 97 +NGT cor-rrr lungs decreased at bases abd soft, tender to palpation, minimal BS ext no edema CBC, BMP 11/07/17 06:30 11/07/17 06:30 Microbiology 11/06/17 08:50 Blood - Peripheral Venous Blood Culture - Preliminary NO GROWTH OBTAINED AFTER 48 HOURS, INCUBATION TO CONTINUE FOR 3 DAYS. 11/04/17 16:40 Blood - Peripheral Venous Blood Culture - Preliminary NO GROWTH OBTAINED AFTER 72 HOURS, INCUBATION TO CONTINUE FOR 2 DAYS. 11/04/17 17:05 Blood - Peripheral Venous Blood Culture - Preliminary NO GROWTH OBTAINED AFTER 72 HOURS, INCUBATION TO CONTINUE FOR 2 DAYS. 11/06/17 11:30 Blood - Picc Line Blood Culture - Preliminary NO GROWTH OBTAINED AFTER 24 HOURS, INCUBATION TO CONTINUE FOR 4 DAYS. 11/06/17 11:30 Urine - Urine - Catheterized Urine Culture - Final NO GROWTH OBTAINED 11/03/17 12:54 Urine - Urine - Catheterized Urine Culture - Final NO GROWTH OBTAINED a/p SBO- surgical management ongoing on zosyn for possible translocation of bacteria given recent fevers f/u abd xray today f/u with surgery dementia- Problem List - Problems (1) SBO (small bowel obstruction) Code(s): K56.609 - UNSP INTESTNL OBST, UNSP TO PARTIAL VERSUS COMPLETE OBST (2) Malnourished Code(s): E46 - UNSPECIFIED PROTEIN-CALORIE MALNUTRITION
[2017-11-08] MEDS ORDERED: INSULIN (NOVOLOG) ASPART 100 UNITS/ML 10ML VIAL ONE (12:43)
[2017-11-08] MEDS ORDERED: INSULIN DETEMIR 100 UNITS/ML MDV SQ SCH (22:00)
[2017-11-08] MEDS: FAT EMULSIONS 250 ML IV SCH (23:50)
[2017-11-09] MEDS: MULTIVIT INJ. ADULT COMBO WITH VIT K 1 COMBO 10 ML VIAL IV SCH ×2 (01:05→18:09)
[2017-11-09] MEDS: INSULIN SLIDING SCALE (NOVOLOG) 1 VIAL SQ SCH ×5 (01:06→22:09)
[2017-11-09] MEDS: AA 2.75 %/CALCIUM/LYTES/D7.5W 1,000 ML IVPB SCH ×2 (01:07→18:09)
[2017-11-09] MEDS: PIPERACILLIN/TAZOB 3.375 GM 3.375 GM in DEXTROSE 5%-WATER - 50 ML IVPB SCH ×3 (01:10→18:10)
[2017-11-09] MEDS: MORPHINE SULFATE 10 MG/1 ML *VIAL IVPUSH PRN ×4 (07:22→18:17)
[2017-11-09 08:20] LABS: BASO % 0.2 % (0-2.0); EOS % 0.2 % (0-4.5); HEMATOCRIT 27.4 % (32.4-45.2); MCH 28.7 pg (25.7-33.7); MCHC 32.9 g/dl (32.0-36.0); MEAN CELL VOLUME 87.2 fl (80-96); MEAN PLT VOLUME 9.1 fl (7.5-11.1); MONO % 4.9 % (3.8-10.2); NEUT % 89.7 % (42.8-82.8); PLATELET COUNT 270 K/MM3 (134-434); RBC 3.15 M/mm3 (3.60-5.2); RDW 14.9 % (11.6-15.6); WHITE BLOOD COUNT 11.7 K/mm3 (4.0-10.0)
[2017-11-09 08:24] LABS: CHLORIDE 107 mmol/L (98-107); POTASSIUM 4.4 mmol/L (3.5-5.1); SODIUM 139 mmol/L (136-145)
[2017-11-09 08:35] LABS: ALK PHOS 70 U/L (45-117); ANION GAP 8 (8-16); BILIRUBIN,TOTAL 0.7 mg/dL (0.2-1.0); BLOOD UREA NITROGEN 37 mg/dL (7-18); CO2 24 mmol/L (21-32); MAGNESIUM 1.9 mg/dL (1.8-2.4); PHOSPHOROUS 3.8 mg/dL (2.5-4.9); SGOT/AST 14 U/L (15-37); SGPT/ALT 18 U/L (12-78); TOT PROT 4.9 g/dl (6.4-8.2)
[2017-11-09] MEDS ORDERED: PT OWN MED DRAWER 7, Y5N ONE ×4 (09:21→21:47)
[2017-11-09] MEDS: HEPARIN NA (PORCINE) 5,000 UNITS/ML 1ML VIAL SQ SCH ×2 (09:29→22:03)
[2017-11-09] MEDS: BRIMONIDINE TARTRATE 0.2% OPHTHALMIC 5 ML BOTTLE OU SCH ×2 (09:29→22:05)
[2017-11-09] MEDS: DORZOLAMIDE 2% HCL OPHTHALMIC SOLUTION 10 ML BOTTLE OU SCH ×2 (09:30→22:05)
[2017-11-09] MEDS: PANTOPRAZOLE SODIUM 40 MG VIAL IVPUSH SCH (09:30)
[2017-11-09 09:39] LABS: GLUCOSE,RANDOM 319 mg/dL (74-106)
--- NOTE | 2017-11-09 09:46 | PN ---
Physical Exam: SUBJECTIVE: Patient seen and examined. She appears to be having more pain today. OBJECTIVE: Vital Signs Period Temp Pulse Resp BP Sys/Fuentes Pulse Ox Last 24 Hr 98 F-98.6 F 107-118 20-20 106-139/54-77 GENERAL: The patient is awake, alert, in moderate distress. LUNGS: Breath sounds equal, clear to auscultation bilaterally, no wheezes, no crackles, no accessory muscle use. HEART: Regular rhythm, tachycardic, S1, S2, (+) 2/6 systolic murmur ABDOMEN: Soft, mildly distended, hypoactive bowel sounds, (+) diffuse tenderness , no hepatosplenomegaly, no masses. EXTREMITIES: 2+ pulses, warm, well-perfused, no edema. Laboratory Results - last 24 hr 11/08/17 11/08/17 11/09/17 12:33 17:02 01:00 WBC RBC Hgb Hct MCV MCH MCHC RDW Plt Count MPV Neutrophils % Lymphocytes % Monocytes % Eosinophils % Basophils % Sodium Potassium Chloride Carbon Dioxide Anion Gap BUN Creatinine Creat Clearance w eGFR POC Glucometer 314 244 373 Random Glucose Calcium Phosphorus Magnesium Total Bilirubin AST ALT Alkaline Phosphatase Total Protein Albumin 11/09/17 11/09/17 11/09/17 07:00 07:00 07:18 WBC 11.7 H D RBC 3.15 L Hgb 9.0 L Hct 27.4 L MCV 87.2 MCH 28.7 MCHC 32.9 RDW 14.9 Plt Count 270 D MPV 9.1 Neutrophils % 89.7 H Lymphocytes % 5.0 L Monocytes % 4.9 Eosinophils % 0.2 D Basophils % 0.2 Sodium 139 Potassium 4.4 Chloride 107 Carbon Dioxide 24 Anion Gap 8 BUN 37 H Creatinine 1.0 Creat Clearance w eGFR 52.95 POC Glucometer 332 Random Glucose 319 H* Calcium 8.0 L Phosphorus 3.8 Magnesium 1.9 Total Bilirubin 0.7 AST 14 L ALT 18 Alkaline Phosphatase 70 Total Protein 4.9 L Albumin 2.0 L Active Medications Generic Name Dose Route Start Last Admin Trade Name Freq PRN Reason Stop Dose Admin Brimonidine Tartrate 1 drop 11/03/17 22:00 11/09/17 09:29 Alphagan 0.2% - OU 1 drp BID [facility] Administration Donepezil HCl 5 mg 11/06/17 10:00 11/06/17 10:03 Aricept - NGT 5 mg DAILY [facility] Administration Dorzolamide HCl 1 drop 11/03/17 22:00 11/09/17 09:30 Trusopt 2% OU 1 drop BID [facility] Administration Heparin Sodium (Porcine) 5,000 unit 11/03/17 22:00 11/09/17 09:29 Heparin - SQ 5,000 unit BID [facility] Administration IV Flush 8 ml 11/05/17 10:36 11/07/17 10:10 Picc Line Flush IVPUSH 8 ml PRN PRN Administration Protocol Piperacillin Sod/Tazobactam 50 mls @ 100 mls/hr 11/06/17 10:00 11/09/17 01:10 Sod 3.375 gm/ Dextrose IVPB 100 mls/hr Q8H-IV [facility] Administration AA 2.75 %/CALCIUM/LYTES/D7.5W 1,000 mls @ 63 mls/hr 11/06/17 13:00 11/09/17 01:07 Clinimix 2.75%-7.5% Solution IVPB 63 mls/hr Q15H [facility] Administration Fat Emulsion Intravenous 250 mls @ 20.833 mls/hr 11/07/17 22:00 11/08/17 23: 50 Intralipid - IV 20.833 mls/hr DAILY@2200 [facility] Administration Insulin Aspart 1 vial 11/03/17 22:00 11/09/17 07:21 Novolog Vial Sliding Scale - SQ 7 units ACHS J[facility] Administration Protocol Insulin Detemir 5 units 11/08/17 22:00 11/09/17 00:00 Levemir Vial SQ 5 unit HS [facility] Administration Morphine Sulfate 2 mg 11/07/17 13:41 11/09/17 09:30 Morphine Injection - IVPUSH 2 mg Q2H PRN Administration PAIN LEVEL 4 - 6 Multivitamins/Minerals 10 ml 11/07/17 15:30 11/09/17 01:05 Infuvite Adult - IV 10 ml Q24H [facility] Administration Ondansetron HCl 4 mg 11/04/17 10:33 11/05/17 10:33 Zofran Injection IVPUSH 4 mg Q6H PRN Administration NAUSEA AND/OR VOMITING Pantoprazole Sodium 40 mg 11/03/17 21:15 11/09/17 09:30 Protonix Iv IVPUSH 40 mg DAILY [facility] Administration ASSESSMENT/PLAN: 1. Small bowel obstruction - X-rays show no improvement - Family does not want surgical intervention - will discuss with them today - Maintain NG tube - Continue IV fluid - Morphine as needed for pain - Zofran as needed for nausea/vomiting 2. Severe protein calorie malnutrition - Continue PPN 3. Dementia - Continue Aricept, Ativan as needed 4. Hypertension - On no medications 5. Hyperlipidemia - Lipitor on hold while NPO 6. Type 2 DM - Metformin on hold - Sugars high on PPN with Novolog sliding scale - Increase Levemir 7. Acute kidney injury on stage 3 CKD - Resolved Visit type - Emergency Visit Emergency Visit: Yes ED Registration Date: 11/03/17 Care time: The patient presented to the Emergency Department on the above date and was hospitalized for further evaluation of their emergent condition. - New Patient This patient is new to me today: No - Critical Care Critical Care patient: No - Discharge Referral Referred to [facility] Med P.C.: No
[2017-11-09] MEDS ORDERED: INSULIN (NOVOLOG) ASPART 100 UNITS/ML 10ML VIAL ONE ×2 (12:06→21:11)
--- NOTE | 2017-11-09 13:13 | PN ---
Progress Note (short form) - Note Progress Note: Renal follow up for MARIE and Malnutrition Pt seen and examined at the bedside lethargic has abd pain NGT in place on IVF Vital Signs Temperature 98.1 F 11/09/17 06:00 Pulse Rate 107 H 11/09/17 06:00 Respiratory Rate 20 11/09/17 06:00 Blood Pressure 132/77 11/09/17 06:00 O2 Sat by Pulse Oximetry (%) 97 11/09/17 09:00 NAD, NGT in place lethargic RRR soft, mild distension no LE edema CBC, BMP 11/09/17 07:00 11/09/17 07:00 Current Medications Brimonidine Tartrate (Alphagan 0.2% -) 1 drop OU BID [facility] Last Admin: 11/09/17 09:29 Dose: 1 drp Donepezil HCl (Aricept -) 5 mg NGT DAILY [facility] Last Admin: 11/06/17 10:03 Dose: 5 mg Dorzolamide HCl (Trusopt 2%) 1 drop OU BID [facility] Last Admin: 11/09/17 09:30 Dose: 1 drop Heparin Sodium (Porcine) (Heparin -) 5,000 unit SQ BID [facility] Last Admin: 11/09/17 09:29 Dose: 5,000 unit IV Flush (Picc Line Flush) 8 ml IVPUSH PRN PRN PRN Reason: Protocol Last Admin: 11/07/17 10:10 Dose: 8 ml Piperacillin Sod/Tazobactam (Sod 3.375 gm/ Dextrose) 50 mls @ 100 mls/hr IVPB Q8H-IV [facility] Last Admin: 11/09/17 12:09 Dose: 100 mls/hr AA 2.75 %/CALCIUM/LYTES/D7.5W (Clinimix 2.75%-7.5% Solution) 1,000 mls @ 63 mls /hr IVPB Q15H [facility] Last Admin: 11/09/17 01:07 Dose: 63 mls/hr Fat Emulsion Intravenous (Intralipid -) 250 mls @ 20.833 mls/hr IV DAILY@2200 [facility] Last Admin: 11/08/17 23:50 Dose: 20.833 mls/hr Insulin Aspart (Novolog Vial Sliding Scale -) 1 vial SQ ACHS [facility] PRN Reason: Protocol Last Admin: 11/09/17 12:09 Dose: 2 units Insulin Detemir (Levemir Vial) 5 units SQ HS [facility] Last Admin: 11/09/17 00:00 Dose: 5 unit Morphine Sulfate (Morphine Injection -) 2 mg IVPUSH Q2H PRN PRN Reason: PAIN LEVEL 4 - 6 Last Admin: 11/09/17 09:30 Dose: 2 mg Multivitamins/Minerals (Infuvite Adult -) 10 ml IV Q24H [facility] Last Admin: 11/09/17 01:05 Dose: 10 ml Ondansetron HCl (Zofran Injection) 4 mg IVPUSH Q6H PRN PRN Reason: NAUSEA AND/OR VOMITING Last Admin: 11/05/17 10:33 Dose: 4 mg Pantoprazole Sodium (Protonix Iv) 40 mg IVPUSH DAILY [facility] Last Admin: 11/09/17 09:30 Dose: 40 mg 82 year old woman with PMhx HTN dementia and DM who presents for evaluation of abdominal pain and found to have SBO with Cr of 1.7. #SBO/NPO status/Malnutrition will continue Clinimix with Lipids for now non-surgical management as per family would trend electrolytes daily prognosis is guarded at this time Thank you Vinnie Holt DO
[2017-11-09] MEDS: FAT EMULSIONS 250 ML IV SCH (21:56)
[2017-11-09] MEDS: INSULIN DETEMIR 100 UNITS/ML MDV SQ SCH (22:10)
[2017-11-09] MEDS ORDERED: ACETAMINOPHEN 650 MG SUPP.RECT PR ONE (23:00)
[2017-11-09 23:43] LABS: BASO % 0.4 % (0-2.0); EOS % 0.5 % (0-4.5); HEMATOCRIT 25.1 % (32.4-45.2); LYMPH % 6.3 % (8-40); MCH 31.3 pg (25.7-33.7); MCHC 35.7 g/dl (32.0-36.0); MEAN CELL VOLUME 87.7 fl (80-96); MEAN PLT VOLUME 9.3 fl (7.5-11.1); MONO % 6.1 % (3.8-10.2); NEUT % 86.7 % (42.8-82.8); PLATELET COUNT 256 K/MM3 (134-434); RBC 2.86 M/mm3 (3.60-5.2); URINE APPEARANCE CLOUDY; URINE BILIRUBIN NEGATIVE (NEGATIVE); URINE BLOOD NEGATIVE (NEGATIVE); URINE COLOR YELLOW; URINE GLUCOSE (UA) 2+ (NEGATIVE); URINE KETONE NEGATIVE (NEGATIVE); URINE LEUK ESTERASE NEGATIVE (NEGATIVE); URINE NITRITE NEGATIVE (NEGATIVE); URINE PROTEIN NEGATIVE (NEGATIVE); URINE UROBILINOGEN NEGATIVE mg/dL (0.2-1.0); WHITE BLOOD COUNT 9.4 K/mm3 (4.0-10.0)
[2017-11-10] MEDS: MORPHINE SULFATE 10 MG/1 ML *VIAL IVPUSH PRN ×4 (00:19→12:17)
[2017-11-10] MEDS: PIPERACILLIN/TAZOB 3.375 GM 3.375 GM in DEXTROSE 5%-WATER - 50 ML IVPB SCH ×3 (02:34→17:17)
[2017-11-10] MEDS: INSULIN SLIDING SCALE (NOVOLOG) 1 VIAL SQ SCH ×4 (06:23→21:11)
[2017-11-10 07:31] LABS: BASO % 0.2 % (0-2.0); EOS % 1.2 % (0-4.5); HEMATOCRIT 24.8 % (32.4-45.2); HEMOGLOBIN 9.1 GM/dL (10.7-15.3); LYMPH % 5.8 % (8-40); MCH 32.1 pg (25.7-33.7); MCHC 36.6 g/dl (32.0-36.0); MEAN CELL VOLUME 87.7 fl (80-96); MEAN PLT VOLUME 9.4 fl (7.5-11.1); MONO % 6.5 % (3.8-10.2); NEUT % 86.3 % (42.8-82.8); PLATELET COUNT 251 K/MM3 (134-434); RBC 2.83 M/mm3 (3.60-5.2); RDW 14.9 % (11.6-15.6); WHITE BLOOD COUNT 10.3 K/mm3 (4.0-10.0)
[2017-11-10] MEDS ORDERED: PT OWN MED DRAWER 7, Y5N ONE (08:49)
[2017-11-10] MEDS: AA 2.75 %/CALCIUM/LYTES/D7.5W 1,000 ML IVPB SCH ×2 (08:53→21:06)
--- NOTE | 2017-11-10 08:55 | PN ---
Physical Exam: SUBJECTIVE: Patient seen and examined. She is moaning and crying. OBJECTIVE: Vital Signs Period Temp Pulse Resp BP Sys/Fuentes Pulse Ox Last 24 Hr 95.4 F-101.0 F 99-110 18-20 127-137/55-75 97-97 GENERAL: The patient is awake, alert, in moderate distress. LUNGS: Breath sounds equal, clear to auscultation bilaterally, no wheezes, no crackles, no accessory muscle use. HEART: Regular rhythm, tachycardic, S1, S2, (+) 2/6 systolic murmur ABDOMEN: Soft, distended, hypoactive bowel sounds, (+) diffuse tenderness, no hepatosplenomegaly, no masses. EXTREMITIES: 2+ pulses, warm, well-perfused, no edema. Laboratory Results - last 24 hr 11/09/17 11/09/17 11/09/17 07:00 11:49 18:11 WBC RBC Hgb Hct MCV MCH MCHC RDW Plt Count MPV Neutrophils % Lymphocytes % Monocytes % Eosinophils % Basophils % Sodium 139 Potassium 4.4 Chloride 107 Carbon Dioxide 24 Anion Gap 8 BUN 37 H Creatinine 1.0 Creat Clearance w eGFR 52.95 POC Glucometer 211 200 Random Glucose 319 H* Calcium 8.0 L Phosphorus 3.8 Magnesium 1.9 Total Bilirubin 0.7 AST 14 L ALT 18 Alkaline Phosphatase 70 Total Protein 4.9 L Albumin 2.0 L Urine Color Urine Appearance Urine pH Ur Specific [place] Urine Protein Urine Glucose (UA) Urine Ketones Urine Blood Urine Nitrite Urine Bilirubin Urine Urobilinogen Ur Leukocyte Esterase 11/09/17 11/09/17 11/09/17 22:08 23:30 23:30 WBC 9.4 RBC 2.86 L Hgb 9.0 L Hct 25.1 L MCV 87.7 MCH 31.3 MCHC 35.7 RDW 15.0 Plt Count 256 MPV 9.3 Neutrophils % 86.7 H Lymphocytes % 6.3 L D Monocytes % 6.1 Eosinophils % 0.5 D Basophils % 0.4 Sodium Potassium Chloride Carbon Dioxide Anion Gap BUN Creatinine Creat Clearance w eGFR POC Glucometer 283 Random Glucose Calcium Phosphorus Magnesium Total Bilirubin AST ALT Alkaline Phosphatase Total Protein Albumin Urine Color Yellow Urine Appearance Cloudy Urine pH 5.0 Ur Specific [place] 1.024 Urine Protein Negative Urine Glucose (UA) 2+ H Urine Ketones Negative Urine Blood Negative Urine Nitrite Negative Urine Bilirubin Negative Urine Urobilinogen Negative Ur Leukocyte Esterase Negative 11/10/17 11/10/17 06:22 06:47 WBC 10.3 H RBC 2.83 L Hgb 9.1 L Hct 24.8 L MCV 87.7 MCH 32.1 MCHC 36.6 H RDW 14.9 Plt Count 251 MPV 9.4 Neutrophils % 86.3 H Lymphocytes % 5.8 L Monocytes % 6.5 Eosinophils % 1.2 D Basophils % 0.2 Sodium Potassium Chloride Carbon Dioxide Anion Gap BUN Creatinine Creat Clearance w eGFR POC Glucometer 200 Random Glucose Calcium Phosphorus Magnesium Total Bilirubin AST ALT Alkaline Phosphatase Total Protein Albumin Urine Color Urine Appearance Urine pH Ur Specific [place] Urine Protein Urine Glucose (UA) Urine Ketones Urine Blood Urine Nitrite Urine Bilirubin Urine Urobilinogen Ur Leukocyte Esterase Active Medications Generic Name Dose Route Start Last Admin Trade Name Freq PRN Reason Stop Dose Admin Brimonidine Tartrate 1 drop 11/03/17 22:00 11/09/17 22:05 Alphagan 0.2% - OU 1 drp BID [facility] Administration Donepezil HCl 5 mg 11/06/17 10:00 11/06/17 10:03 Aricept - NGT 5 mg DAILY [facility] Administration Dorzolamide HCl 1 drop 11/03/17 22:00 11/09/17 22:05 Trusopt 2% OU 1 drop BID [facility] Administration Heparin Sodium (Porcine) 5,000 unit 11/03/17 22:00 11/09/17 22:03 Heparin - SQ 5,000 unit BID [facility] Administration IV Flush 8 ml 11/05/17 10:36 11/07/17 10:10 Picc Line Flush IVPUSH 8 ml PRN PRN Administration Protocol Piperacillin Sod/Tazobactam 50 mls @ 100 mls/hr 11/06/17 10:00 11/10/17 02:34 Sod 3.375 gm/ Dextrose IVPB 100 mls/hr Q8H-IV [facility] Administration AA 2.75 %/CALCIUM/LYTES/D7.5W 1,000 mls @ 63 mls/hr 11/06/17 13:00 11/10/17 08:53 Clinimix 2.75%-7.5% Solution IVPB 63 mls/hr Q15H [facility] Administration Fat Emulsion Intravenous 250 mls @ 20.833 mls/hr 11/07/17 22:00 11/09/17 21: 56 Intralipid - IV 20.833 mls/hr DAILY@2200 [facility] Administration Insulin Aspart 1 vial 11/03/17 22:00 11/10/17 06:23 Novolog Vial Sliding Scale - SQ Not Given ACHS [facility] Protocol Insulin Detemir 10 units 11/09/17 22:00 11/09/17 22:10 Levemir Vial SQ 10 units HS [facility] Administration Morphine Sulfate 2 mg 11/07/17 13:41 11/10/17 08:29 Morphine Injection - IVPUSH 2 mg Q2H PRN Administration PAIN LEVEL 4 - 6 Multivitamins/Minerals 10 ml 11/07/17 15:30 11/09/17 18:09 Infuvite Adult - IV Not Given Q24H [facility] Ondansetron HCl 4 mg 11/04/17 10:33 11/05/17 10:33 Zofran Injection IVPUSH 4 mg Q6H PRN Administration NAUSEA AND/OR VOMITING Pantoprazole Sodium 40 mg 11/03/17 21:15 11/09/17 09:30 Protonix Iv IVPUSH 40 mg DAILY [facility] Administration ASSESSMENT/PLAN: 1. Small bowel obstruction - Family still does not want surgical intervention despite lack of improvement - Maintain NG tube - Continue IV fluid - Morphine as needed for pain - Zofran as needed for nausea/vomiting 2. Severe protein calorie malnutrition - Continue PPN 3. Dementia - Continue Aricept, Ativan as needed 4. Hypertension - On no medications 5. Hyperlipidemia - Lipitor on hold while NPO 6. Type 2 DM - Metformin on hold - Sugars high with PPN - Levemir increased - Continue Novolog sliding scale 7. Acute kidney injury on stage 3 CKD - Resolved 8. Anemia - Hemoglobin stable Visit type - Emergency Visit Emergency Visit: Yes ED Registration Date: 11/03/17 Care time: The patient presented to the Emergency Department on the above date and was hospitalized for further evaluation of their emergent condition. - New Patient This patient is new to me today: No - Critical Care Critical Care patient: No - Discharge Referral Referred to [facility] Med P.C.: No
[2017-11-10] MEDS: PANTOPRAZOLE SODIUM 40 MG VIAL IVPUSH SCH (09:06)
[2017-11-10] MEDS: BRIMONIDINE TARTRATE 0.2% OPHTHALMIC 5 ML BOTTLE OU SCH ×2 (09:07→21:05)
[2017-11-10] MEDS: HEPARIN NA (PORCINE) 5,000 UNITS/ML 1ML VIAL SQ SCH (09:07)
[2017-11-10] MEDS: DORZOLAMIDE 2% HCL OPHTHALMIC SOLUTION 10 ML BOTTLE OU SCH ×2 (09:07→21:12)
[2017-11-10] MEDS: PICC LINE 8 ML FLUSH PROTOCOL IVPUSH PRN (09:16)
[2017-11-10 11:15] LABS: ANION GAP 6 (8-16); BILIRUBIN,TOTAL 0.9 mg/dL (0.2-1.0); BLOOD UREA NITROGEN 38 mg/dL (7-18); CALCIUM 7.8 mg/dL (8.5-10.1); CHLORIDE 106 mmol/L (98-107); CO2 27 mmol/L (21-32); CREATININE 0.9 mg/dL (0.55-1.02); GLUCOSE,RANDOM 232 mg/dL (74-106); MAGNESIUM 1.9 mg/dL (1.8-2.4); PHOSPHOROUS 3.9 mg/dL (2.5-4.9); POTASSIUM 4.1 mmol/L (3.5-5.1); SGOT/AST 20 U/L (15-37); SGPT/ALT 18 U/L (12-78); SODIUM 139 mmol/L (136-145)
[2017-11-10 11:16] LABS: ALK PHOS 101 U/L (45-117)
[2017-11-10] MEDS: morphine SULFATE 4 MG/ML VIAL IVPUSH PRN ×2 (16:53→20:52)
[2017-11-10] MEDS: INSULIN DETEMIR 100 UNITS/ML MDV SQ SCH (21:08)
[2017-11-11] MEDS: morphine SULFATE 4 MG/ML VIAL IVPUSH PRN ×6 (00:31→21:53)
[2017-11-11] MEDS ORDERED: PT OWN MED DRAWER 7, Y5N ONE ×4 (01:43→09:50)
[2017-11-11] MEDS: FAT EMULSIONS 250 ML IV SCH ×2 (01:51→21:55)
[2017-11-11] MEDS: PIPERACILLIN/TAZOB 3.375 GM 3.375 GM in DEXTROSE 5%-WATER - 50 ML IVPB SCH ×3 (01:52→18:12)
[2017-11-11] MEDS: INSULIN SLIDING SCALE (NOVOLOG) 1 VIAL SQ SCH ×4 (05:59→21:54)
[2017-11-11 07:24] LABS: CHLORIDE 106 mmol/L (98-107); POTASSIUM 4.4 mmol/L (3.5-5.1); SODIUM 141 mmol/L (136-145)
[2017-11-11 07:45] LABS: ALK PHOS 98 U/L (45-117); ANION GAP 13 (8-16); BLOOD UREA NITROGEN 36 mg/dL (7-18); CALCIUM 8.1 mg/dL (8.5-10.1); CO2 22 mmol/L (21-32); CREATININE 0.8 mg/dL (0.55-1.02); GLUCOSE,RANDOM 205 mg/dL (74-106); PHOSPHOROUS 3.8 mg/dL (2.5-4.9); SGOT/AST 21 U/L (15-37); SGPT/ALT 20 U/L (12-78); TOT PROT 4.8 g/dl (6.4-8.2)
[2017-11-11 07:52] LABS: BASO % 0.4 % (0-2.0); EOS % 1.2 % (0-4.5); HEMATOCRIT 25.3 % (32.4-45.2); HEMOGLOBIN 8.6 GM/dL (10.7-15.3); LYMPH % 6.2 % (8-40); MCH 29.5 pg (25.7-33.7); MEAN CELL VOLUME 86.6 fl (80-96); MEAN PLT VOLUME 9.3 fl (7.5-11.1); NEUT % 87.2 % (42.8-82.8); PLATELET COUNT 291 K/MM3 (134-434); RBC 2.92 M/mm3 (3.60-5.2); RDW 14.9 % (11.6-15.6); WHITE BLOOD COUNT 9.1 K/mm3 (4.0-10.0)
[2017-11-11] MEDS: PANTOPRAZOLE SODIUM 40 MG VIAL IVPUSH SCH (09:48)
[2017-11-11] MEDS: DORZOLAMIDE 2% HCL OPHTHALMIC SOLUTION 10 ML BOTTLE OU SCH ×2 (09:51→21:54)
[2017-11-11] MEDS: BRIMONIDINE TARTRATE 0.2% OPHTHALMIC 5 ML BOTTLE OU SCH ×2 (09:51→21:54)
--- NOTE | 2017-11-11 13:42 | PN ---
Progress Note, Physician Chief Complaint: remained obstructed pulled nG tube - Current Medication List Current Medications: Active Medications Brimonidine Tartrate (Alphagan 0.2% -) 1 drop OU BID [facility] Last Admin: 11/11/17 09:51 Dose: 1 drp Donepezil HCl (Aricept -) 5 mg NGT DAILY [facility] Last Admin: 11/06/17 10:03 Dose: 5 mg Dorzolamide HCl (Trusopt 2%) 1 drop OU BID [facility] Last Admin: 11/11/17 09:51 Dose: 1 drop IV Flush (Picc Line Flush) 8 ml IVPUSH PRN PRN PRN Reason: Protocol Last Admin: 11/10/17 09:16 Dose: 8 ml Piperacillin Sod/Tazobactam (Sod 3.375 gm/ Dextrose) 50 mls @ 100 mls/hr IVPB Q8H-IV [facility] Last Admin: 11/11/17 09:48 Dose: 100 mls/hr AA 2.75 %/CALCIUM/LYTES/D7.5W (Clinimix 2.75%-7.5% Solution) 1,000 mls @ 63 mls /hr IVPB Q15H [facility] Last Admin: 11/10/17 21:06 Dose: 63 mls/hr Fat Emulsion Intravenous (Intralipid -) 250 mls @ 20.833 mls/hr IV DAILY@2200 [facility] Last Admin: 11/11/17 01:51 Dose: 20.833 mls/hr Insulin Aspart (Novolog Vial Sliding Scale -) 1 vial SQ ACHS [facility] PRN Reason: Protocol Last Admin: 11/11/17 05:59 Dose: 2 units Insulin Detemir (Levemir Vial) 10 units SQ HS [facility] Last Admin: 11/10/17 21:08 Dose: 10 units Morphine Sulfate (Morphine Sulfate) 2 mg IVPUSH Q2H PRN PRN Reason: PAIN LEVEL 6-10 Last Admin: 11/11/17 09:30 Dose: 2 mg Multivitamins/Minerals (Infuvite Adult -) 10 ml IV Q24H [facility] Last Admin: 11/09/17 18:09 Dose: Not Given Ondansetron HCl (Zofran Injection) 4 mg IVPUSH Q6H PRN PRN Reason: NAUSEA AND/OR VOMITING Last Admin: 11/05/17 10:33 Dose: 4 mg Pantoprazole Sodium (Protonix Iv) 40 mg IVPUSH DAILY [facility] Last Admin: 11/11/17 09:48 Dose: 40 mg - Objective Vital Signs: Vital Signs Temperature 98 F 11/11/17 10:00 Pulse Rate 84 11/11/17 10:00 Respiratory Rate 18 11/11/17 10:00 Blood Pressure 128/74 11/11/17 10:00 O2 Sat by Pulse Oximetry (%) 96 11/11/17 09:00 Elderly f sick looking not in distress HEENT: Mm moist, mild anemia NECK: No JVD No Bruit CHEST: CTA B/L CVS; S1S2 R no m/g/r ABD: Distention, , diffuse tender Bs + EXT: Trace sonny afeet [employer]: Alert oriented moving all extremities Labs: CBC, BMP 11/11/17 05:35 11/11/17 05:35 - ....Imaging X-ray: Report Reviewed (KUB: persistent SBO) Problem List - Problems (1) SBO (small bowel obstruction) Assessment/Plan: Still obstructed no BM, NPO, IV Hydration, NG Tube reconsult surgery on family request, dont want any surgery will monitor closely. Code(s): K56.609 - UNSP INTESTNL OBST, UNSP TO PARTIAL VERSUS COMPLETE OBST (2) Malnourished Assessment/Plan: Nutritin consult Code(s): E46 - UNSPECIFIED PROTEIN-CALORIE MALNUTRITION (3) T2DM (type 2 diabetes mellitus) Assessment/Plan: Cont Correction dose insulin Code(s): E11.9 - TYPE 2 DIABETES MELLITUS WITHOUT COMPLICATIONS
--- NOTE | 2017-11-11 18:47 | PN ---
Progress Note (short form) - Note Progress Note: Renal follow up for MARIE and Malnutrition Pt seen and examined at the bedside in distress from pain pulled out NGT this am on IVF and lipids Vital Signs Temperature 97.6 F 11/11/17 15:39 Pulse Rate 106 H 11/11/17 15:39 Respiratory Rate 18 11/11/17 15:39 Blood Pressure 125/82 11/11/17 15:39 O2 Sat by Pulse Oximetry (%) 96 11/11/17 09:00 Intake & Output 11/08/17 11/09/17 11/10/17 11/11/17 23:59 23:59 23:59 23:59 Intake Total 946 2226 2100 730 Output Total 150 400 Balance 796 2226 1700 730 NAD, NGT in place lethargic RRR soft, mild distension no LE edema CBC, BMP 11/11/17 05:35 11/11/17 05:35 Current Medications Brimonidine Tartrate (Alphagan 0.2% -) 1 drop OU BID [facility] Last Admin: 11/11/17 09:51 Dose: 1 drp Donepezil HCl (Aricept -) 5 mg NGT DAILY [facility] Last Admin: 11/06/17 10:03 Dose: 5 mg Dorzolamide HCl (Trusopt 2%) 1 drop OU BID [facility] Last Admin: 11/11/17 09:51 Dose: 1 drop IV Flush (Picc Line Flush) 8 ml IVPUSH PRN PRN PRN Reason: Protocol Last Admin: 11/10/17 09:16 Dose: 8 ml Piperacillin Sod/Tazobactam (Sod 3.375 gm/ Dextrose) 50 mls @ 100 mls/hr IVPB Q8H-IV [facility] Last Admin: 11/11/17 18:12 Dose: 100 mls/hr AA 2.75 %/CALCIUM/LYTES/D7.5W (Clinimix 2.75%-7.5% Solution) 1,000 mls @ 63 mls /hr IVPB Q15H [facility] Last Admin: 11/10/17 21:06 Dose: 63 mls/hr Fat Emulsion Intravenous (Intralipid -) 250 mls @ 20.833 mls/hr IV DAILY@2200 [facility] Last Admin: 11/11/17 01:51 Dose: 20.833 mls/hr Insulin Aspart (Novolog Vial Sliding Scale -) 1 vial SQ ACHS [facility] PRN Reason: Protocol Last Admin: 11/11/17 18:11 Dose: 7 units Insulin Detemir (Levemir Vial) 10 units SQ HS [facility] Last Admin: 11/10/17 21:08 Dose: 10 units Morphine Sulfate (Morphine Sulfate) 2 mg IVPUSH Q2H PRN PRN Reason: PAIN LEVEL 6-10 Last Admin: 11/11/17 18:19 Dose: 2 mg Multivitamins/Minerals (Infuvite Adult -) 10 ml IV Q24H [facility] Last Admin: 11/09/17 18:09 Dose: Not Given Ondansetron HCl (Zofran Injection) 4 mg IVPUSH Q6H PRN PRN Reason: NAUSEA AND/OR VOMITING Last Admin: 11/05/17 10:33 Dose: 4 mg Pantoprazole Sodium (Protonix Iv) 40 mg IVPUSH DAILY [facility] Last Admin: 11/11/17 09:48 Dose: 40 mg 82 year old woman with PMhx HTN dementia and DM who presents for evaluation of abdominal pain and found to have SBO with Cr of 1.7. #SBO/NPO status/Malnutrition family does not wish to pursue surgical intervention non-surgical management for now clinically not improving pain control will continue Clinimix with lipids TPN solution is not available at this time prognosis is poor Thank you Vinnie Holt DO
[2017-11-11] MEDS: AA 2.75 %/CALCIUM/LYTES/D7.5W 1,000 ML IVPB SCH (18:53)
[2017-11-11] MEDS: MULTIVIT INJ. ADULT COMBO WITH VIT K 1 COMBO 10 ML VIAL IV SCH ×2 (18:54)
--- NOTE | 2017-11-11 20:32 | CON.GI ---
Consult Consult Specialty:: GI Referred by:: Mauro - History of Present Illness History of Present Illness: 82 y/o F was admitted for high grade small bowel obstruction last 11/04/2017. 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 Endocrine: Yes: Diabetes Mellitus (NIDDM) - Alcohol/Substance Use Hx Alcohol Use: No - Smoking History Smoking history: Never smoked Home Medications - Allergies Allergies/Adverse Reactions: Allergies Allergy/AdvReac Type Severity Reaction Status Date / Time No Known Allergies Allergy Verified 11/03/17 11:39 - Home Medications Home Medications: Ambulatory Orders Atorvastatin Ca [Lipitor] 10 mg PO HS 11/03/17 Brimonidine Tartrate/Timolol [Combigan 0.2%-0.5% Eye Drops] 1 drop OU BID Metformin HCl 500 mg PO BID 11/03/17 Physical Exam-GI Vital Signs: Vital Signs Temperature 97.6 F 11/11/17 15:39 Pulse Rate 106 H 11/11/17 15:39 Respiratory Rate 18 11/11/17 15:39 Blood Pressure 125/82 11/11/17 15:39 O2 Sat by Pulse Oximetry (%) 96 11/11/17 09:00 Constitutional: Yes: Cachectic Eyes: Yes: Conjunctiva Clear HENT: Yes: Atraumatic Neck: Yes: Supple Cardiovascular: Yes: Regular Rate and Rhythm Respiratory: Yes: CTA Bilaterally Gastrointestinal Inspection: Yes: Distention ...Palpate: Yes: Soft, Tenderness (--mild). No: Firm/Rigid, Guarding, Hepatomegaly, Mass, Pulsatile Mass, Splenomegaly Labs: CBC, BMP 11/11/17 05:35 11/11/17 05:35 Problem List - Problems (1) SBO (small bowel obstruction) Assessment/Plan: R> there is no role for peg tube insertion in the presence of small bowel obstruction. Continue NGT drainage and IV hydration. Please recall as necessary.surgical fllow-up as necessary Code(s): K56.609 - UNSP INTESTNL OBST, UNSP TO PARTIAL VERSUS COMPLETE OBST
[2017-11-11] MEDS ORDERED: INSULIN (NOVOLOG) ASPART 100 UNITS/ML 10ML VIAL ONE (20:57)
[2017-11-11] MEDS: INSULIN DETEMIR 100 UNITS/ML MDV SQ SCH (21:55)
[2017-11-12] MEDS: PIPERACILLIN/TAZOB 3.375 GM 3.375 GM in DEXTROSE 5%-WATER - 50 ML IVPB SCH ×2 (01:32→11:12)
[2017-11-12] MEDS: morphine SULFATE 4 MG/ML VIAL IVPUSH PRN ×2 (04:25→07:21)
[2017-11-12] MEDS: AA 2.75 %/CALCIUM/LYTES/D7.5W 1,000 ML IVPB SCH ×2 (04:50→19:11)
[2017-11-12] MEDS: INSULIN SLIDING SCALE (NOVOLOG) 1 VIAL SQ SCH ×4 (06:42→21:13)
[2017-11-12 07:44] LABS: CHLORIDE 103 mmol/L (98-107); POTASSIUM 4.7 mmol/L (3.5-5.1); SODIUM 138 mmol/L (136-145)
[2017-11-12 07:48] LABS: ANION GAP 11 (8-16); BLOOD UREA NITROGEN 28 mg/dL (7-18); CALCIUM 7.8 mg/dL (8.5-10.1); CO2 24 mmol/L (21-32); CREATININE 0.8 mg/dL (0.55-1.02); GLUCOSE,RANDOM 245 mg/dL (74-106)
[2017-11-12 08:03] LABS: BASO % 0.4 % (0-2.0); EOS % 1.1 % (0-4.5); HEMATOCRIT 24.9 % (32.4-45.2); HEMOGLOBIN 8.6 GM/dL (10.7-15.3); LYMPH % 6.2 % (8-40); MCH 30.1 pg (25.7-33.7); MCHC 34.6 g/dl (32.0-36.0); MEAN CELL VOLUME 86.8 fl (80-96); MEAN PLT VOLUME 9.2 fl (7.5-11.1); MONO % 9.5 % (3.8-10.2); NEUT % 82.8 % (42.8-82.8); PLATELET COUNT 331 K/MM3 (134-434); RBC 2.87 M/mm3 (3.60-5.2); RDW 14.5 % (11.6-15.6); WHITE BLOOD COUNT 9.8 K/mm3 (4.0-10.0)
[2017-11-12] MEDS: DONEPEZIL HCL 5 MG TABLET (FP) NGT SCH (10:18)
--- NOTE | 2017-11-12 10:24 | PN ---
Progress Note, Physician Chief Complaint: SBO History of Present Illness: -moaning in pain, -abdominal distention -pulled out NGT overnight -Strict NPO -IVF -seen by ID and surgery -PICC line -IV abx -PPN -Awaiting final report on abdominal Xray done yesterday, looking at image looks continuation of SBO - Current Medication List Current Medications: Active Medications Brimonidine Tartrate (Alphagan 0.2% -) 1 drop OU BID [facility] Last Admin: 11/11/17 21:54 Dose: 1 drp Dorzolamide HCl (Trusopt 2%) 1 drop OU BID [facility] Last Admin: 11/11/17 21:54 Dose: 1 drop IV Flush (Picc Line Flush) 8 ml IVPUSH PRN PRN PRN Reason: Protocol Last Admin: 11/10/17 09:16 Dose: 8 ml Piperacillin Sod/Tazobactam (Sod 3.375 gm/ Dextrose) 50 mls @ 100 mls/hr IVPB Q8H-IV [facility] Last Admin: 11/12/17 01:32 Dose: 100 mls/hr AA 2.75 %/CALCIUM/LYTES/D7.5W (Clinimix 2.75%-7.5% Solution) 1,000 mls @ 63 mls /hr IVPB Q15H [facility] Last Admin: 11/12/17 04:50 Dose: Not Given Fat Emulsion Intravenous (Intralipid -) 250 mls @ 20.833 mls/hr IV DAILY@2200 [facility] Last Admin: 11/11/17 21:55 Dose: 20.833 mls/hr Insulin Aspart (Novolog Vial Sliding Scale -) 1 vial SQ ACHS [facility] PRN Reason: Protocol Last Admin: 11/12/17 06:42 Dose: 5 units Insulin Detemir (Levemir Vial) 10 units SQ HS [facility] Last Admin: 11/11/17 21:55 Dose: 10 units Morphine Sulfate (Morphine Sulfate) 2 mg IVPUSH Q2H PRN PRN Reason: PAIN LEVEL 6-10 Last Admin: 11/12/17 07:21 Dose: 2 mg Multivitamins/Minerals (Infuvite Adult -) 10 ml IV Q24H [facility] Last Admin: 11/11/17 18:54 Dose: 10 ml Ondansetron HCl (Zofran Injection) 4 mg IVPUSH Q6H PRN PRN Reason: NAUSEA AND/OR VOMITING Last Admin: 11/05/17 10:33 Dose: 4 mg Pantoprazole Sodium (Protonix Iv) 40 mg IVPUSH DAILY [facility] Last Admin: 11/11/17 09:48 Dose: 40 mg - Objective Vital Signs: Vital Signs Temperature 99.2 F 11/12/17 10:00 Pulse Rate 96 H 11/12/17 10:00 Respiratory Rate 16 11/12/17 10:00 Blood Pressure 130/51 11/12/17 10:00 O2 Sat by Pulse Oximetry (%) 97 11/11/17 21:00 Constitutional: Yes: Cachectic, Mild Distress Cardiovascular: Yes: Regular Rate and Rhythm Respiratory: Yes: Regular Neurological: Yes: Alert, Pre-Existing Deficit Psychiatric: Yes: Alert Labs: CBC, BMP 11/12/17 05:30 11/12/17 05:30 Problem List - Problems (1) Malnourished Assessment/Plan: evidence by low total protein and albumin -TPN unavailable in the hospital at this time -on Clinimix -renal consult -PICC line Code(s): E46 - UNSPECIFIED PROTEIN-CALORIE MALNUTRITION Qualifiers: Protein-calorie malnutrition severity: severe (2) SBO (small bowel obstruction) Assessment/Plan: -NGT -NPO -restraints to avoid interruption in therapy -Surgery consult appreciated, re-evaluation -IVF with KCl -Cllinimix Code(s): K56.609 - UNSP INTESTNL OBST, UNSP TO PARTIAL VERSUS COMPLETE OBST (3) 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 Will get second opinion for GI and Surgery.
[2017-11-12] MEDS ORDERED: PT OWN MED DRAWER 7, Y5N ONE ×2 (11:05→20:59)
[2017-11-12] MEDS: BRIMONIDINE TARTRATE 0.2% OPHTHALMIC 5 ML BOTTLE OU SCH ×2 (11:10→21:08)
[2017-11-12] MEDS: DORZOLAMIDE 2% HCL OPHTHALMIC SOLUTION 10 ML BOTTLE OU SCH ×2 (11:11→21:07)
[2017-11-12] MEDS: PANTOPRAZOLE SODIUM 40 MG VIAL IVPUSH SCH (11:11)
[2017-11-12] MEDS: morphine SULFATE 4 MG/ML VIAL IVPUSH SCH ×4 (11:17→23:27)
[2017-11-12] MEDS ORDERED: INSULIN (NOVOLOG) ASPART 100 UNITS/ML 10ML VIAL ONE (12:27)
--- NOTE | 2017-11-12 15:03 | PN ---
Progress Note (short form) - Note Progress Note: agitated at times, otherwise resting comfortably Vital Signs Period Temp Pulse Resp BP Sys/Fuentes Pulse Ox Last 24 Hr 97.6 F-99.2 F 96-109 16-18 125-154/51-82 97 +NGT cor-rrr lungs decreased bs at bases abd firm, tender to palpation ext no edema CBC, BMP 11/12/17 05:30 11/12/17 05:30 a/p SBO- surgical management ongoing afebrile, will dc zosyn and observe all cultures negative dementia- Problem List - Problems (1) SBO (small bowel obstruction) Code(s): K56.609 - UNSP INTESTNL OBST, UNSP TO PARTIAL VERSUS COMPLETE OBST (2) Malnourished Code(s): E46 - UNSPECIFIED PROTEIN-CALORIE MALNUTRITION Qualifiers: Protein-calorie malnutrition severity: severe
--- NOTE | 2017-11-12 18:03 | PN ---
Progress Note (short form) - Note Progress Note: spoke to her daughter and I explained that I was not comfortable insertin a gastostomy tube to decompress a high grade small contreras obstruction. I suggested to get a second opinion. I spoke to the nurse and requested her to call gi corrections officer for second opinion. Problem List - Problems (1) SBO (small bowel obstruction) Code(s): K56.609 - UNSP INTESTNL OBST, UNSP TO PARTIAL VERSUS COMPLETE OBST
[2017-11-12] MEDS: INSULIN DETEMIR 100 UNITS/ML MDV SQ SCH (21:13)
[2017-11-12] MEDS: FAT EMULSIONS 250 ML IV SCH (21:23)
[2017-11-13] MEDS: morphine SULFATE 4 MG/ML VIAL IVPUSH SCH ×7 (02:42→23:30)
[2017-11-13] MEDS: MULTIVIT INJ. ADULT COMBO WITH VIT K 1 COMBO 10 ML VIAL IV SCH ×3 (06:30→16:53)
[2017-11-13] MEDS: AA 2.75 %/CALCIUM/LYTES/D7.5W 1,000 ML IVPB SCH ×3 (06:35→23:28)
[2017-11-13] MEDS: INSULIN SLIDING SCALE (NOVOLOG) 1 VIAL SQ SCH ×4 (06:38→22:57)
--- NOTE | 2017-11-13 09:01 | PN ---
Progress Note, Physician Chief Complaint: SBO History of Present Illness: -moaning in pain, -abdominal distention -pulled out NGT overnight -Strict NPO -IVF -seen by ID and surgery -PICC line -IV abx -PPN -awaiting second opinion from GI and Surgery. - Current Medication List Current Medications: Active Medications Acetaminophen (Tylenol Suppository -) 650 mg NC Q6H PRN PRN Reason: FEVER Brimonidine Tartrate (Alphagan 0.2% -) 1 drop OU BID [facility] Last Admin: 11/12/17 21:08 Dose: 1 drp Dorzolamide HCl (Trusopt 2%) 1 drop OU BID [facility] Last Admin: 11/12/17 21:07 Dose: 1 drop IV Flush (Picc Line Flush) 8 ml IVPUSH PRN PRN PRN Reason: Protocol Last Admin: 11/10/17 09:16 Dose: 8 ml AA 2.75 %/CALCIUM/LYTES/D7.5W (Clinimix 2.75%-7.5% Solution) 1,000 mls @ 63 mls /hr IVPB Q15H [facility] Last Admin: 11/13/17 06:35 Dose: 63 mls/hr Fat Emulsion Intravenous (Intralipid -) 250 mls @ 20.833 mls/hr IV DAILY@2200 [facility] Last Admin: 11/12/17 21:23 Dose: 20.833 mls/hr Insulin Aspart (Novolog Vial Sliding Scale -) 1 vial SQ ACHS [facility] PRN Reason: Protocol Last Admin: 11/13/17 06:38 Dose: Not Given Insulin Detemir (Levemir Vial) 10 units SQ HS [facility] Last Admin: 11/12/17 21:13 Dose: 10 units Lorazepam (Ativan Injection -) 1 mg IVPUSH Q6H PRN PRN Reason: ANXIETY Last Admin: 11/13/17 03:40 Dose: 1 mg Morphine Sulfate (Morphine Sulfate) 2 mg IVPUSH Q4H [facility] Last Admin: 11/13/17 05:40 Dose: Not Given Multivitamins/Minerals (Infuvite Adult -) 10 ml IV Q24H [facility] Last Admin: 11/13/17 06:30 Dose: 10 ml Ondansetron HCl (Zofran Injection) 4 mg IVPUSH Q6H PRN PRN Reason: NAUSEA AND/OR VOMITING Last Admin: 11/05/17 10:33 Dose: 4 mg Pantoprazole Sodium (Protonix Iv) 40 mg IVPUSH DAILY [facility] Last Admin: 11/12/17 11:11 Dose: 40 mg - Objective Vital Signs: Vital Signs Temperature 99.7 F H 11/13/17 07:00 Pulse Rate 110 H 11/13/17 07:00 Respiratory Rate 18 11/13/17 07:00 Blood Pressure 122/55 11/13/17 07:00 O2 Sat by Pulse Oximetry (%) 95 11/12/17 21:00 Constitutional: Yes: Calm, Cachectic, Mild Distress Cardiovascular: Yes: Tachycardia Respiratory: Yes: Regular Gastrointestinal: Yes: Distention, Hypoactive Bowel Sounds Musculoskeletal: Yes: Muscle Weakness Edema: No Peripheral Pulses WNL: Yes Neurological: Yes: Alert, Pre-Existing Deficit Psychiatric: Yes: Alert Labs: CBC, BMP 11/12/17 05:30 11/12/17 05:30 Problem List - Problems (1) Malnourished Assessment/Plan: evidence by low total protein and albumin -TPN unavailable in the hospital at this time -on Clinimix -renal consult -PICC line Code(s): E46 - UNSPECIFIED PROTEIN-CALORIE MALNUTRITION Qualifiers: Protein-calorie malnutrition severity: severe Qualified Code(s): E43 - Unspecified severe protein-calorie malnutrition (2) SBO (small bowel obstruction) Assessment/Plan: -NGT -NPO -restraints to avoid interruption in therapy -awaiting second opinion from GI and Surgery for PEG insertion or surgical intervention for SBO -IVF with KCl -Cllinimix Code(s): K56.609 - UNSP INTESTNL OBST, UNSP TO PARTIAL VERSUS COMPLETE OBST (3) 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 Awaiting second opinion for GI and Surgery.
[2017-11-13] MEDS ORDERED: PT OWN MED DRAWER 7, Y5N ONE ×2 (09:42→10:59)
[2017-11-13] MEDS: DORZOLAMIDE 2% HCL OPHTHALMIC SOLUTION 10 ML BOTTLE OU SCH ×2 (09:46→22:53)
[2017-11-13] MEDS: PANTOPRAZOLE SODIUM 40 MG VIAL IVPUSH SCH (09:47)
[2017-11-13] MEDS: BRIMONIDINE TARTRATE 0.2% OPHTHALMIC 5 ML BOTTLE OU SCH ×2 (09:49→22:53)
--- NOTE | 2017-11-13 11:16 | CON.GI ---
Consult Consult Specialty:: GI Referred by:: primary team - History of Present Illness History of Present Illness: Chart reviewed. Events noted. An 82 yo frail patient admitted 9 days ago with high grade SBO. NGT to intermittent suction produces continuous billiary rerun. AXR 2 days ago showed persistent SBO and collapsed colon. No surgical intervention planned. A venting gastrostomy was suggested to the patient's family by the surgery. 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 Endocrine: Yes: Diabetes Mellitus (NIDDM) - Alcohol/Substance Use Hx Alcohol Use: No - Smoking History Smoking history: Never smoked Home Medications - Allergies Allergies/Adverse Reactions: Allergies Allergy/AdvReac Type Severity Reaction Status Date / Time No Known Allergies Allergy Verified 11/03/17 11:39 - Home Medications Home Medications: Ambulatory Orders Atorvastatin Ca [Lipitor] 10 mg PO HS 11/03/17 Brimonidine Tartrate/Timolol [Combigan 0.2%-0.5% Eye Drops] 1 drop OU BID Metformin HCl 500 mg PO BID 11/03/17 Family Disease History - Family Disease History Family History: Unremarkable Physical Exam-GI Vital Signs: Vital Signs Temperature 99.7 F H 11/13/17 07:00 Pulse Rate 114 H 11/13/17 09:39 Respiratory Rate 24 11/13/17 09:39 Blood Pressure 123/65 11/13/17 09:39 O2 Sat by Pulse Oximetry (%) 95 11/12/17 21:00 Constitutional: Yes: Calm Eyes: Yes: Conjunctiva Clear HENT: Yes: Other (NGT) Cardiovascular: No: Bradycardia, Tachycardia Respiratory: Yes: Regular Gastrointestinal Inspection: Yes: Distention ...Palpate: Yes: Tenderness, Other (NGT to intrmittent succion produces continious biliary return) Labs: CBC, BMP 11/12/17 05:30 11/12/17 05:30 CBCD WBC 9.8 K/mm3 (4.0-10.0) 11/12/17 05:30 RBC 2.87 M/mm3 (3.60-5.2) L 11/12/17 05:30 Hgb 8.6 GM/dL (10.7-15.3) L 11/12/17 05:30 Hct 24.9 % (32.4-45.2) L 11/12/17 05:30 MCV 86.8 fl (80-96) 11/12/17 05:30 MCHC 34.6 g/dl (32.0-36.0) 11/12/17 05:30 RDW 14.5 % (11.6-15.6) 11/12/17 05:30 Plt Count 331 K/MM3 (134-434) 11/12/17 05:30 MPV 9.2 fl (7.5-11.1) 11/12/17 05:30 CMP Sodium 138 mmol/L (136-145) 11/12/17 05:30 Potassium 4.7 mmol/L (3.5-5.1) 11/12/17 05:30 Chloride 103 mmol/L (98-107) 11/12/17 05:30 Carbon Dioxide 24 mmol/L (21-32) 11/12/17 05:30 Anion Gap 11 (8-16) 11/12/17 05:30 BUN 28 mg/dL (7-18) H 11/12/17 05:30 Creatinine 0.8 mg/dL (0.55-1.02) 11/12/17 05:30 Creat Clearance w eGFR > 60 (>60) 11/11/17 05:35 Calcium 7.8 mg/dL (8.5-10.1) L 11/12/17 05:30 Total Bilirubin 1.0 mg/dL (0.2-1.0) 11/11/17 05:35 AST 21 U/L (15-37) 11/11/17 05:35 ALT 20 U/L (12-78) 11/11/17 05:35 Alkaline Phosphatase 98 U/L (45-117) 11/11/17 05:35 Total Protein 4.8 g/dl (6.4-8.2) L 11/11/17 05:35 Albumin 2.0 g/dl (3.4-5.0) L 11/11/17 05:35 Imaging - Results X-ray: Report Reviewed Problem List - Problems (1) Ascites Code(s): R18.8 - OTHER ASCITES (2) 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 In my opinion, without addressing the underlying SBO, the chance of the patient recovering to her baseline with, or without venting gastrostomy is infinitely small. A discussion should be had about palliative/hospice care if there is no plan to repair SBO. A venting gastrostomy, as an alternative to NGT, could be considered then. Beverly note, presents of moderate ascites is relative contraindication to PEG (non-healing, leakage and infection). Please reconsult as needed
--- NOTE | 2017-11-13 18:39 | CONSULT ---
Consult Consult Specialty:: General Surgery Referred by:: Kalpana Mahmood Reason for Consultation:: second opinion about surgery, SBO - History of Present Illness Chief Complaint: SBO History of Present Illness: 82yo F with h/o HTN, HLD, DM, dementia, cataracts/blindness, s/p hysterectomy was admitted to medicine through ER 10 days ago with high-grade/complete SBO by CT imaging with moderate to large ascites present. She has been treated with NG decompression, IV nutrition, NPO, and pain medication, with followup X-rays all showing persistence of obstruction with multiple stacked, dilated SB loops, almost no change control manager at least a week. Surgery was consulted initially, and operation was offered to the family after a few days of conservative treatment, though the patient was noted to be a poor surgical candidate secondary to malnutrition, age, comorbidities, and functional status. At the time, the patient's labs were not suggestive of bowel compromise, and she has remained hemodynamically stable with normal wbc. The family declined surgical intervention, and has continued to decline, per chart notes. Palliative care consultation and followup noted. The patient has repeatedly pulled out her NGT despite restraints and medication, and it has been repeatedly replaced. GI was also consulted to consider venting gastrostomy, but two GI consultants have noted that this is not indicated without addressing the underlying SBO. A second surgical opinion was requested by the primary team. The patient is seen and examined in bed. She has been medicated for pain, but is not responsive to questions with any more than moaning, groaning and grimacing intermittently. She appears to be either resting comfortably or in pain when aroused with voice or touch. She is restrained with mittens on, and NGT was replaced again today. VS today show tachycardia and low grade temps. She is frequently incontinent of urine, so accurate I/O's are not available. She has not had a BM. Family is not present today. 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 Cardio/Vascular: Yes: HTN, Hyperlipdemia Endocrine: Yes: Diabetes Mellitus (NIDDM) Additional Medical History: blind, cataracts - Past Surgical History Past Surgical History: Yes: Hysterectomy - Alcohol/Substance Use Hx Alcohol Use: No History of Substance Use: reports: None - Smoking History Smoking history: Never smoked - Social History Usual Living Arrangement: With Spouse Home Medications - Allergies Allergies/Adverse Reactions: Allergies Allergy/AdvReac Type Severity Reaction Status Date / Time No Known Allergies Allergy Verified 11/03/17 11:39 - Home Medications Home Medications: Ambulatory Orders Atorvastatin Ca [Lipitor] 10 mg PO HS 11/03/17 Brimonidine Tartrate/Timolol [Combigan 0.2%-0.5% Eye Drops] 1 drop OU BID Metformin HCl 500 mg PO BID 11/03/17 Family Disease History - Family Disease History Family History: Unable to Obtain (family not at bedside) Review of Systems Unable to obtain ROS, reason: pt not responsive Physical Exam Vital Signs: Vital Signs Temperature 97.4 F L 11/13/17 15:38 Pulse Rate 105 H 11/13/17 15:38 Respiratory Rate 22 11/13/17 15:38 Blood Pressure 139/72 11/13/17 15:38 O2 Sat by Pulse Oximetry (%) 95 11/12/17 21:00 Constitutional: Yes: Calm, Cachectic, Mild Distress (appears in pain, groans periodically, grimaces, almost crying occas) Eyes: Yes: Cataracts (by report), Other (pt did not open eyes) HENT: Yes: Atraumatic, Normocephalic, Other (temporal wasting; NGT in place with dark green bilious output) Neck: Yes: Supple, Trachea Midline Cardiovascular: Yes: Tachycardia. No: Pulse Irregular Respiratory: Yes: Regular, CTA Bilaterally (difficult to hear on left over NGT) , Poor Air Entry Gastrointestinal: Yes: Soft, Distention, Hyperactive Bowel Sounds, Tenderness ( appears tender LLQ, possibly on right side also - difficult to gauge reaction to palpation, no rebound). No: Tenderness, Rebound ...Rectal Exam: Yes: Deferred Renal/: Yes: Incontinence (? - diaper on). No: Garza Present Extremities: Yes: Other (wrist restraints and mittens on). No: Cool, Cyanosis Edema: No Peripheral Pulses WNL: Yes Integumentary: Yes: Tenting. No: Bruising, Rash Neurological: Yes: Unresponsive (moans and groans periodically, moves and responds to voice at times and pain, but does not interact with me). No: Alert , Oriented Labs: CBC, BMP 11/12/17 05:30 11/12/17 05:30 CMP Sodium 138 mmol/L (136-145) 11/12/17 05:30 Potassium 4.7 mmol/L (3.5-5.1) 11/12/17 05:30 Chloride 103 mmol/L (98-107) 11/12/17 05:30 Carbon Dioxide 24 mmol/L (21-32) 11/12/17 05:30 Anion Gap 11 (8-16) 11/12/17 05:30 BUN 28 mg/dL (7-18) H 11/12/17 05:30 Creatinine 0.8 mg/dL (0.55-1.02) 11/12/17 05:30 Creat Clearance w eGFR > 60 (>60) 11/11/17 05:35 POC Glucometer 247 UNITS (80-120) 11/13/17 16:55 Random Glucose 245 mg/dL (74-106) H 11/12/17 05:30 Hemoglobin A1c % 6.7 % (4.8-6.0) H 11/04/17 07:35 Lactic Acid 1.0 mmol/L (0.0-2.0) 11/03/17 12:29 Calcium 7.8 mg/dL (8.5-10.1) L 11/12/17 05:30 Phosphorus 3.8 mg/dL (2.5-4.9) 11/11/17 05:35 Magnesium 2.0 mg/dL (1.8-2.4) 11/11/17 05:35 Total Bilirubin 1.0 mg/dL (0.2-1.0) 11/11/17 05:35 AST 21 U/L (15-37) 11/11/17 05:35 ALT 20 U/L (12-78) 11/11/17 05:35 Alkaline Phosphatase 98 U/L (45-117) 11/11/17 05:35 Total Protein 4.8 g/dl (6.4-8.2) L 11/11/17 05:35 Albumin 2.0 g/dl (3.4-5.0) L 11/11/17 05:35 Triglycerides 95 mg/dL (35-160) 11/07/17 06:30 Cholesterol 75 mg/dL (50-200) 03/15/18 06:30 Total LDL Cholesterol 30 mg/dL (5-100) 11/07/17 06:30 HDL Cholesterol 17 mg/dL (40-60) L 11/07/17 06:30 Total Amylase 39 U/L (25-115) 11/04/17 07:35 Lipase 58 U/L (73-393) L 11/04/17 07:35 Serum Folate 4 ng/ml (3.1-17.5) 11/07/17 06:30 no coags no recent lactate BUN decreasing slowly, but still elevated Urine Test Results Urine Color Yellow 11/09/17 23:30 Urine Appearance Cloudy 11/09/17 23:30 Urine pH 5.0 (5.0-8.0) 11/09/17 23:30 Ur Specific Whitman 1.024 (1.001-1.035) 11/09/17 23:30 Urine Protein Negative (NEGATIVE) 11/09/17 23:30 Urine Glucose (UA) 2+ (NEGATIVE) H 11/09/17 23:30 Urine Ketones Negative (NEGATIVE) 11/09/17 23:30 Urine Blood Negative (NEGATIVE) 11/09/17 23:30 Urine Nitrite Negative (NEGATIVE) 11/09/17 23:30 Urine Bilirubin Negative (NEGATIVE) 11/09/17 23:30 Ur Leukocyte Esterase Negative (NEGATIVE) 11/09/17 23:30 Ur Epithelial Cells Rare /HPF (FEW) 11/03/17 12:42 Urine Bacteria Many /hpf (NONE SEEN) 11/03/17 12:42 Imaging - Results Chest X-ray: Report Reviewed, Image Reviewed (few CXR reviewed personally, no definite free air, but known ascites, so may be hard to interpret) X-ray: Report Reviewed, Image Reviewed (AXR from , , , reviewed - all show nearly identical picture of persistent SBO with stacked, dilated, gas-filled SB loops; also ?dependent (inferior) opacity, possibly of ascites - unclear if related to enteral contrast administration given via NGT before first AXR? -- no improvement in SBO in over a week) Cat Scan: Report Reviewed, Image Reviewed (from 11/03 - personally reviewed images - moderate+ ascites with high-grade SBO/possibly complete with transition in LLQ) Problem List - Problems (1) Intestinal adhesions with complete obstruction Assessment/Plan: The patient appears to have a complete/high-grade small bowel obstruction, present on admission, with no real change control manager the last ten days. She is clinically severely malnourished, and albumin is low. IV nutrition may not be meeting current needs as well. She was a poor surgical candidate at initial surgical consultation, and is no better now. Indeed, given the lack of change in SBO and initial presence of ascites, I agree that her best chance at surgical intervention would have been soon after arrival, when offered, after a short trial of conservative therapy. This obstruction is highly unlikely to resolve spontaneously, but she is also at very high risk for surgical complications and almost sure to have failure to thrive and wound healing problems after any operation. I doubt she can return to her previous level of functioning, especially given her baseline dementia. It is likely she would end up in a nursing facility, if she survived, and would probably also need a feeding tube for nutritional supplementation as well. Without surgery, she is at high risk for bowel perforation, sepsis and , and will continue to require NG decompression and IV nutrition to survive. Palliative care notes that hospice has been discussed with family, but at this time, they have not made a decision to pursue comfort care only. Taking all into account, I agree it should be strongly considered. 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
[2017-11-13] MEDS: FAT EMULSIONS 250 ML IV SCH (22:54)
[2017-11-13] MEDS: INSULIN DETEMIR 100 UNITS/ML MDV SQ SCH (22:54)
[2017-11-14] MEDS: AA 2.75 %/CALCIUM/LYTES/D7.5W 1,000 ML IVPB SCH ×2 (01:44→15:27)
[2017-11-14] MEDS: morphine SULFATE 4 MG/ML VIAL IVPUSH SCH ×6 (02:35→22:36)
[2017-11-14] MEDS: INSULIN SLIDING SCALE (NOVOLOG) 1 VIAL SQ SCH ×4 (06:37→22:24)
[2017-11-14] MEDS: PANTOPRAZOLE SODIUM 40 MG VIAL IVPUSH SCH (10:05)
[2017-11-14] MEDS: PICC LINE 8 ML FLUSH PROTOCOL IVPUSH PRN ×2 (10:06→15:20)
[2017-11-14] MEDS: DORZOLAMIDE 2% HCL OPHTHALMIC SOLUTION 10 ML BOTTLE OU SCH ×2 (10:12→22:34)
[2017-11-14] MEDS: BRIMONIDINE TARTRATE 0.2% OPHTHALMIC 5 ML BOTTLE OU SCH ×2 (10:12→22:34)
--- NOTE | 2017-11-14 11:10 | PN ---
Progress Note, Physician Chief Complaint: SBO History of Present Illness: -No change in her medical condition -moaning in pain, -abdominal distention -pulled out NGT overnight -Strict NPO -IVF -seen by ID and surgery -PICC line -IV abx -PPN -seen by GI and Surgery, GI not recommending to do PEG unless she is hospice or palliative; surgery suggest, either way mortality risk is high whether we do surgery for SBO or not. However, this needs to be discussed with family i.e. daughter Adela- HCP. - Current Medication List Current Medications: Active Medications Acetaminophen (Tylenol Suppository -) 650 mg MN Q6H PRN PRN Reason: FEVER Brimonidine Tartrate (Alphagan 0.2% -) 1 drop OU BID ON [facility] OF [facility] Last Admin: 11/14/17 10:12 Dose: 1 drp Dorzolamide HCl (Trusopt 2%) 1 drop OU BID ON LICENSE OF [facility] Last Admin: 11/14/17 10:12 Dose: 1 drop IV Flush (Picc Line Flush) 8 ml IVPUSH PRN PRN PRN Reason: Protocol Last Admin: 11/14/17 10:06 Dose: 8 ml AA 2.75 %/CALCIUM/LYTES/D7.5W (Clinimix 2.75%-7.5% Solution) 1,000 mls @ 63 mls /hr IVPB Q15H ON LICENSE OF [facility] Last Admin: 11/14/17 01:44 Dose: Not Given Fat Emulsion Intravenous (Intralipid -) 250 mls @ 20.833 mls/hr IV DAILY@2200 ON LICENSE OF [facility] Last Admin: 11/13/17 22:54 Dose: 20.833 mls/hr Insulin Aspart (Novolog Vial Sliding Scale -) 1 vial SQ ACHS JAMEY PRN Reason: Protocol Last Admin: 11/14/17 06:37 Dose: 2 units Insulin Detemir (Levemir Vial) 10 units SQ HS ON LICENSE OF [facility] Last Admin: 11/13/17 22:54 Dose: 10 units Lorazepam (Ativan Injection -) 1 mg IVPUSH Q6H PRN PRN Reason: ANXIETY Last Admin: 11/14/17 10:05 Dose: 1 mg Morphine Sulfate (Morphine Sulfate) 2 mg IVPUSH Q4H ON LICENSE OF [facility] Last Admin: 11/14/17 10:06 Dose: Not Given Multivitamins/Minerals (Infuvite Adult -) 10 ml IV Q24H ON LICENSE OF [facility] Last Admin: 11/13/17 16:53 Dose: Not Given Ondansetron HCl (Zofran Injection) 4 mg IVPUSH Q6H PRN PRN Reason: NAUSEA AND/OR VOMITING Last Admin: 11/05/17 10:33 Dose: 4 mg Pantoprazole Sodium (Protonix Iv) 40 mg IVPUSH DAILY ON LICENSE OF [facility] Last Admin: 11/14/17 10:05 Dose: 40 mg - Objective Vital Signs: Vital Signs Temperature 97.8 F 11/14/17 06:00 Pulse Rate 103 H 11/14/17 06:00 Respiratory Rate 20 11/14/17 06:00 Blood Pressure 128/69 11/14/17 06:00 O2 Sat by Pulse Oximetry (%) 95 11/12/17 21:00 Constitutional: Yes: Calm, Cachectic, Mild Distress Cardiovascular: Yes: Regular Rate and Rhythm Respiratory: Yes: Regular Gastrointestinal: Yes: Distention, Hypoactive Bowel Sounds, Tenderness Musculoskeletal: Yes: Muscle Weakness Edema: No Peripheral Pulses WNL: Yes Neurological: Yes: Lethargy (responsive to questions), Pre-Existing Deficit Psychiatric: Yes: Alert Labs: CBC, BMP 11/12/17 05:30 11/12/17 05:30 Problem List - Problems (1) Malnourished Assessment/Plan: evidence by low total protein and albumin -TPN unavailable in the hospital at this time -on Clinimix -renal consult appreciated -PICC line Code(s): E46 - UNSPECIFIED PROTEIN-CALORIE MALNUTRITION Qualifiers: Protein-calorie malnutrition severity: severe (2) SBO (small bowel obstruction) Assessment/Plan: -NGT -NPO -restraints to avoid interruption in therapy -IVF with KCl -Cllinimix -seen by GI and Surgery, GI not recommending to do PEG unless she is hospice or palliative; surgery suggest, either way mortality risk is high whether we do surgery for SBO or not. However, this needs to be discussed with family i.e. daughter Adela- HCP. 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
--- NOTE | 2017-11-14 13:59 | PN ---
Progress Note (short form) - Note Progress Note: Pt with no change in overall condition. Moaning and groaning in bed, not responsive to questions. Appears uncomfortable/in pain. Restrained, NGT in place with bilious output. Abdomen distended. No BM. Still tachycardic, Tm rectal today 99.2. Vital Signs Period Temp Pulse Resp BP Sys/Fuentes Pulse Ox Last 24 Hr 97.3 F-99.2 F 100-107 18-22 128-143/69-76 PE: as above cachectic, poor skin turgor NG, abd distended wrists restrained with mittens diaper, no Garza no labs for 2 days A/P: high-grade/complete SBO, likely adhesive in nature highly unlikely to resolve without surgery, but pt is poor surgical candidate with likely poor prognosis with or without surgery had lengthy discussion (40 mins) with daughter Adela (HCP) initially, then including daughters Chasidy and Eve, sister Abigail family initially declined surgery in part because they thought it was offered sooner than they had expected, and then because they did/do not want a feeding tube placed for postop feeding, and were under the impression that it would be part of the surgery as offered in anticipation of feeding difficulties postop and as an alternate to NG tube initially one significant goal is to keep patient as comfortable as possible, they do not want her to suffer more pain than necessary we discussed risk factors for poor surgical outcomes and barriers to patient returning to prehospital level of functioning, including but not limited to her malnutrition, dementia, time already spent in bed and not ambulating, presence of ascites on admission and likely more now (seen on AXRs), potential need for feeding tube to achieve appropriate nutrition levels, potential need for ostomy at surgery, need for continued NG decompression for at least a few days postop if not more, likely time spent in a longterm facility and the possibility that she might not actually get home again, and that the best possible time for surgery may well have been as soon after admission as was offered. We also discussed that comfort care/hospice care was possible and achievable, perhaps at a facility like [place], with or without NGT for relief of symptoms of nausea/vomiting vs leaving it out as a source of discomfort knowing that n/v/ aspiration were then risks as well, and that those could cause her . Pain medication could also make her much more comfortable than she currently appears , though it could also hasten her . Palliative care staff would be involved in assisting with such arrangements, and helping to manage her symptoms and resources. The patient is no better a surgical candidate now than she was 11 days ago, and likely has higher risk for poor outcome, including not surviving surgery. If the family does wish to pursue an operation now, I would consider a repeat CT scan to reevaluate the abdomen and pelvis. They are going to discuss their wishes and decision-making, and I will check back later today with Adela to see if they have decided on goals of care and a course of action. 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
[2017-11-14] MEDS: MULTIVIT INJ. ADULT COMBO WITH VIT K 1 COMBO 10 ML VIAL IV SCH (15:27)
[2017-11-14] MEDS ORDERED: INSULIN (NOVOLOG) ASPART 100 UNITS/ML 10ML VIAL ONE (19:33)
[2017-11-14] MEDS ORDERED: INSULIN DETEMIR 100 UNITS/ML MDV SQ ONE (19:33)
[2017-11-14] MEDS: FAT EMULSIONS 250 ML IV SCH (22:25)
[2017-11-14] MEDS: INSULIN DETEMIR 100 UNITS/ML MDV SQ SCH (22:35)
[2017-11-15] MEDS: morphine SULFATE 4 MG/ML VIAL IVPUSH SCH ×7 (02:35→22:51)
[2017-11-15] MEDS: INSULIN SLIDING SCALE (NOVOLOG) 1 VIAL SQ SCH ×4 (06:17→21:31)
[2017-11-15] MEDS: AA 2.75 %/CALCIUM/LYTES/D7.5W 1,000 ML IVPB SCH ×2 (08:01→20:00)
[2017-11-15] MEDS: PICC LINE 8 ML FLUSH PROTOCOL IVPUSH PRN (10:07)
[2017-11-15] MEDS: PANTOPRAZOLE SODIUM 40 MG VIAL IVPUSH SCH (10:07)
[2017-11-15] MEDS: DORZOLAMIDE 2% HCL OPHTHALMIC SOLUTION 10 ML BOTTLE OU SCH ×2 (10:07→21:27)
[2017-11-15] MEDS: BRIMONIDINE TARTRATE 0.2% OPHTHALMIC 5 ML BOTTLE OU SCH ×2 (10:07→21:27)
[2017-11-15] MEDS ORDERED: PT OWN MED DRAWER 7, Y5N ONE (10:14)
--- NOTE | 2017-11-15 11:07 | PN ---
Progress Note, Physician Chief Complaint: SBO History of Present Illness: -No change in her medical condition -moaning in pain, -abdominal distention -pulled out NGT overnight -Strict NPO -IVF -seen by ID and surgery -PICC line -IV abx -PPN -seen by GI and Surgery, GI not recommending to do PEG unless she is hospice or palliative; surgery suggest, either way mortality risk is high whether we do surgery for SBO or not. Extensive discussion with family by Surgery yesterday. Pt has been made DNR, but not hospice or palliative yet. Family still to decide. - Current Medication List Current Medications: Active Medications Acetaminophen (Tylenol Suppository -) 650 mg AK Q6H PRN PRN Reason: FEVER Brimonidine Tartrate (Alphagan 0.2% -) 1 drop OU BID [facility] Last Admin: 11/15/17 10:07 Dose: 1 drp Dorzolamide HCl (Trusopt 2%) 1 drop OU BID [facility] Last Admin: 11/15/17 10:07 Dose: 1 drop IV Flush (Picc Line Flush) 8 ml IVPUSH PRN PRN PRN Reason: Protocol Last Admin: 11/15/17 10:07 Dose: 8 ml AA 2.75 %/CALCIUM/LYTES/D7.5W (Clinimix 2.75%-7.5% Solution) 1,000 mls @ 63 mls /hr IVPB Q15H [facility] Last Admin: 11/15/17 08:01 Dose: 63 mls/hr Fat Emulsion Intravenous (Intralipid -) 250 mls @ 20.833 mls/hr IV DAILY@2200 [facility] Last Admin: 11/14/17 22:25 Dose: 20.833 mls/hr Insulin Aspart (Novolog Vial Sliding Scale -) 1 vial SQ ACHS JAMEY PRN Reason: Protocol Last Admin: 11/15/17 06:17 Dose: Not Given Insulin Detemir (Levemir Vial) 10 units SQ HS [facility] Last Admin: 11/14/17 22:35 Dose: 10 units Lorazepam (Ativan Injection -) 1 mg IVPUSH Q6H PRN PRN Reason: ANXIETY Last Admin: 11/15/17 08:01 Dose: 1 mg Morphine Sulfate (Morphine Sulfate) 2 mg IVPUSH Q4H [facility] Last Admin: 11/15/17 06:34 Dose: Not Given Multivitamins/Minerals (Infuvite Adult -) 10 ml IV Q24H [facility] Last Admin: 11/14/17 15:27 Dose: 10 ml Ondansetron HCl (Zofran Injection) 4 mg IVPUSH Q6H PRN PRN Reason: NAUSEA AND/OR VOMITING Last Admin: 11/05/17 10:33 Dose: 4 mg Pantoprazole Sodium (Protonix Iv) 40 mg IVPUSH DAILY [facility] Last Admin: 11/15/17 10:07 Dose: 40 mg - Objective Vital Signs: Vital Signs Temperature 98.1 F 11/15/17 06:00 Pulse Rate 104 H 11/15/17 06:00 Respiratory Rate 18 11/15/17 06:00 Blood Pressure 130/73 11/15/17 06:00 O2 Sat by Pulse Oximetry (%) 95 11/12/17 21:00 Constitutional: Yes: Calm, Cachectic, Mild Distress Cardiovascular: Yes: Regular Rate and Rhythm Respiratory: Yes: Regular Gastrointestinal: Yes: Distention, Hypoactive Bowel Sounds Musculoskeletal: Yes: WNL Extremities: Yes: WNL Edema: No Peripheral Pulses WNL: Yes Neurological: Yes: Lethargy (arousable) Labs: CBC, BMP 11/12/17 05:30 11/12/17 05:30 Problem List - Problems (1) Malnourished Assessment/Plan: evidence by low total protein and albumin -TPN unavailable in the hospital at this time -on Clinimix -renal consult appreciated -PICC line Code(s): E46 - UNSPECIFIED PROTEIN-CALORIE MALNUTRITION Qualifiers: Protein-calorie malnutrition severity: severe (2) SBO (small bowel obstruction) Assessment/Plan: -NGT -NPO -restraints to avoid interruption in therapy -IVF with KCl -Cllinimix -Palliative consult appreciated -seen by GI and Surgery, GI not recommending to do PEG unless she is hospice or palliative; surgery suggest, either way mortality risk is high whether we do surgery for SBO or not. Extensive discussion with family by Surgery yesterday. Pt has been made DNR, but not hospice or palliative yet. Family still to decide. 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
[2017-11-15] MEDS ORDERED: morphine SULFATE 4 MG/ML VIAL ONE (11:55)
[2017-11-15] MEDS: MULTIVIT INJ. ADULT COMBO WITH VIT K 1 COMBO 10 ML VIAL IV SCH ×2 (15:23→19:52)
[2017-11-15] MEDS ORDERED: INSULIN (NOVOLOG) ASPART 100 UNITS/ML 10ML VIAL ONE (20:44)
[2017-11-15] MEDS: INSULIN DETEMIR 100 UNITS/ML MDV SQ SCH (21:31)
[2017-11-15] MEDS: FAT EMULSIONS 250 ML IV SCH (21:33)
[2017-11-16] MEDS: morphine SULFATE 4 MG/ML VIAL IVPUSH SCH ×7 (02:15→21:10)
[2017-11-16] MEDS: INSULIN SLIDING SCALE (NOVOLOG) 1 VIAL SQ SCH ×3 (06:30→17:16)
[2017-11-16] MEDS: ACETAMINOPHEN 650 MG SUPP.RECT PR PRN (08:45)
[2017-11-16] MEDS ORDERED: PT OWN MED DRAWER 7, Y5N ONE ×2 (09:31→15:55)
[2017-11-16] MEDS: DORZOLAMIDE 2% HCL OPHTHALMIC SOLUTION 10 ML BOTTLE OU SCH (09:34)
[2017-11-16] MEDS: PANTOPRAZOLE SODIUM 40 MG VIAL IVPUSH SCH (09:34)
[2017-11-16] MEDS: BRIMONIDINE TARTRATE 0.2% OPHTHALMIC 5 ML BOTTLE OU SCH (09:35)
[2017-11-16] MEDS: AA 2.75 %/CALCIUM/LYTES/D7.5W 1,000 ML IVPB SCH ×2 (11:57→13:39)
--- NOTE | 2017-11-16 15:05 | PN ---
Progress Note, Physician Chief Complaint: SBO History of Present Illness: -No change in her medical condition -moaning in pain, -abdominal distention -pulled out NGT overnight -Strict NPO -IVF -seen by ID and surgery -PICC line -IV abx -PPN -seen by GI and Surgery, GI not recommending to do PEG unless she is hospice or palliative; surgery suggest, either way mortality risk is high whether we do surgery for SBO or not. Extensive discussion with family by Surgery yesterday. Pt has been made DNR, Pt's family would like to go ahead with Hospice care. -Febrile today, mild improvement after receiving acetaminophen - Current Medication List Current Medications: Active Medications Acetaminophen (Tylenol Suppository -) 650 mg [place] Q6H PRN PRN Reason: FEVER Last Admin: 11/16/17 08:45 Dose: 650 mg Brimonidine Tartrate (Alphagan 0.2% -) 1 drop OU BID [facility] Last Admin: 11/16/17 09:35 Dose: 1 drp Dorzolamide HCl (Trusopt 2%) 1 drop OU BID [facility] Last Admin: 11/16/17 09:34 Dose: 1 drop IV Flush (Picc Line Flush) 8 ml IVPUSH PRN PRN PRN Reason: Protocol Last Admin: 11/15/17 10:07 Dose: 8 ml AA 2.75 %/CALCIUM/LYTES/D7.5W (Clinimix 2.75%-7.5% Solution) 1,000 mls @ 63 mls /hr IVPB Q15H [facility] Last Admin: 11/16/17 13:39 Dose: Not Given Fat Emulsion Intravenous (Intralipid -) 250 mls @ 20.833 mls/hr IV DAILY@2200 [facility] Last Admin: 11/15/17 21:33 Dose: 20.833 mls/hr Insulin Aspart (Novolog Vial Sliding Scale -) 1 vial SQ ACHS [facility] PRN Reason: Protocol Last Admin: 11/16/17 11:18 Dose: Not Given Insulin Detemir (Levemir Vial) 10 units SQ HS [facility] Last Admin: 11/15/17 21:31 Dose: 10 units Lorazepam (Ativan Injection -) 1 mg IVPUSH Q6H PRN PRN Reason: ANXIETY Last Admin: 11/16/17 08:45 Dose: 1 mg Morphine Sulfate (Morphine Sulfate) 2 mg IVPUSH Q4H [facility] Last Admin: 11/16/17 14:40 Dose: 2 mg Multivitamins/Minerals (Infuvite Adult -) 10 ml IV Q24H [facility] Last Admin: 11/15/17 19:52 Dose: 10 ml Ondansetron HCl (Zofran Injection) 4 mg IVPUSH Q6H PRN PRN Reason: NAUSEA AND/OR VOMITING Last Admin: 11/05/17 10:33 Dose: 4 mg Pantoprazole Sodium (Protonix Iv) 40 mg IVPUSH DAILY [facility] Last Admin: 11/16/17 09:34 Dose: 40 mg - Objective Vital Signs: Vital Signs Temperature 101.6 F H 11/16/17 09:28 Pulse Rate 106 H 11/16/17 09:28 Respiratory Rate 20 11/16/17 09:28 Blood Pressure 137/71 11/16/17 09:28 O2 Sat by Pulse Oximetry (%) 96 11/15/17 21:00 Constitutional: Yes: Calm, Cachectic, Mild Distress (intermittent pain) Cardiovascular: Yes: Regular Rate and Rhythm Respiratory: Yes: Diminished Gastrointestinal: Yes: Distention, Hypoactive Bowel Sounds Musculoskeletal: Yes: Muscle Weakness Edema: No Peripheral Pulses WNL: Yes Neurological: Yes: Lethargy (arousable) Labs: CBC, BMP 11/12/17 05:30 11/12/17 05:30 Problem List - Problems (1) Malnourished Assessment/Plan: evidence by low total protein and albumin -on Clinimix -renal consult appreciated -PICC line Code(s): E46 - UNSPECIFIED PROTEIN-CALORIE MALNUTRITION Qualifiers: Protein-calorie malnutrition severity: severe (2) SBO (small bowel obstruction) Assessment/Plan: -NGT -NPO -restraints to avoid interruption in therapy -Cllinimix -Palliative consult appreciated -seen by GI and Surgery, GI not recommending to do PEG unless she is hospice or palliative; surgery suggest, either way mortality risk is high whether we do surgery for SBO or not. 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 Assessment/Plan see problem list
[2017-11-16] MEDS: MULTIVIT INJ. ADULT COMBO WITH VIT K 1 COMBO 10 ML VIAL IV SCH (17:16)
[2017-11-16] MEDS: SCOPOLAMINE HYDROBROMIDE 1 PATCH PATCH.TD72 TD SCH (18:41)
[2017-11-16] MEDS: FAT EMULSIONS 250 ML IV SCH (22:29)
[2017-11-17] MEDS: morphine SULFATE 4 MG/ML VIAL IVPUSH SCH ×9 (00:48→21:12)
[2017-11-17] MEDS: ACETAMINOPHEN 650 MG SUPP.RECT PR PRN ×2 (00:51→11:45)
[2017-11-17] MEDS: AA 2.75 %/CALCIUM/LYTES/D7.5W 1,000 ML IVPB SCH ×3 (04:42→21:13)
[2017-11-17] MEDS ORDERED: INSULIN (NOVOLOG) ASPART 100 UNITS/ML 10ML VIAL ONE (09:21)
[2017-11-17] MEDS ORDERED: INSULIN DETEMIR 100 UNITS/ML MDV SQ ONE (09:21)
--- NOTE | 2017-11-17 12:22 | PN ---
Progress Note, Physician Chief Complaint: SBO History of Present Illness: -No change in her medical condition -moaning in pain, -abdominal distention -pulled out NGT overnight -Strict NPO -IVF -seen by ID and surgery -PICC line -IV abx -PPN -seen by GI and Surgery, GI not recommending to do PEG unless she is hospice or palliative; surgery suggest, either way mortality risk is high whether we do surgery for SBO or not. Extensive discussion with family by Surgery yesterday. Pt has been made DNR, Pt's family would like to go ahead with Hospice care. -Febrile today, mild improvement after receiving acetaminophen - Current Medication List Current Medications: Active Medications Acetaminophen (Tylenol Suppository -) 650 mg [place] Q6H PRN PRN Reason: FEVER Last Admin: 11/17/17 11:45 Dose: 650 mg IV Flush (Picc Line Flush) 8 ml IVPUSH PRN PRN PRN Reason: Protocol Last Admin: 11/15/17 10:07 Dose: 8 ml AA 2.75 %/CALCIUM/LYTES/D7.5W (Clinimix 2.75%-7.5% Solution) 1,000 mls @ 63 mls /hr IVPB Q15H [facility] Last Admin: 11/17/17 04:42 Dose: 63 mls/hr Fat Emulsion Intravenous (Intralipid -) 250 mls @ 20.833 mls/hr IV DAILY@2200 [facility] Last Admin: 11/16/17 22:29 Dose: 20.833 mls/hr Lorazepam (Ativan Injection -) 1 mg IVPUSH Q6H PRN PRN Reason: ANXIETY Last Admin: 11/17/17 11:56 Dose: 1 mg Morphine Sulfate (Morphine Sulfate) 2 mg IVPUSH Q3H [facility] Last Admin: 11/17/17 11:54 Dose: Not Given Scopolamine HBr (Transderm-Scop -) 1 patch TD Q72H [facility] Last Admin: 11/16/17 18:41 Dose: 1 patch - Objective Vital Signs: Vital Signs Temperature 101 F H 11/17/17 12:00 Pulse Rate 99 H 11/17/17 09:35 Respiratory Rate 20 11/17/17 09:35 Blood Pressure 145/70 11/17/17 09:35 O2 Sat by Pulse Oximetry (%) 94 L 11/16/17 21:00 Constitutional: Yes: Well Nourished, No Distress, Calm Cardiovascular: Yes: Regular Rate and Rhythm Respiratory: Yes: Regular Gastrointestinal: Yes: Hypoactive Bowel Sounds, Tenderness Neurological: Yes: Lethargy Labs: CBC, BMP 11/12/17 05:30 11/12/17 05:30 Problem List - Problems (1) Malnourished Assessment/Plan: evidence by low total protein and albumin -on Clinimix- would d/c after hospice eval -renal consult appreciated -PICC line Code(s): E46 - UNSPECIFIED PROTEIN-CALORIE MALNUTRITION Qualifiers: Protein-calorie malnutrition severity: severe (2) SBO (small bowel obstruction) Assessment/Plan: -NGT -NPO -restraints to avoid interruption in therapy -Cllinimix-d/c after hospice eval -Palliative consult appreciated -Initiate Hospice care Code(s): K56.609 - UNSP INTESTNL OBST, UNSP TO PARTIAL VERSUS COMPLETE OBST (3) 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 Assessment/Plan see problem list
[2017-11-18] MEDS: morphine SULFATE 4 MG/ML VIAL IVPUSH SCH ×8 (02:28→19:13)
--- NOTE | 2017-11-18 10:30 | PN ---
Progress Note, Physician Chief Complaint: patient in bed NG tube wrist restraints so that she doesnot pull out the ng tube on clinimix hospice to evaluate resident today groaning in bed - Current Medication List Current Medications: Active Medications Acetaminophen (Tylenol Suppository -) 650 mg [place] Q6H PRN PRN Reason: FEVER Last Admin: 11/17/17 11:45 Dose: 650 mg IV Flush (Picc Line Flush) 8 ml IVPUSH PRN PRN PRN Reason: Protocol Last Admin: 11/15/17 10:07 Dose: 8 ml AA 2.75 %/CALCIUM/LYTES/D7.5W (Clinimix 2.75%-7.5% Solution) 1,000 mls @ 63 mls /hr IVPB Q15H [facility] Last Admin: 11/17/17 21:13 Dose: 63 mls/hr Lorazepam (Ativan Injection -) 1 mg IVPUSH Q6H PRN PRN Reason: ANXIETY Last Admin: 11/18/17 00:01 Dose: 1 mg Morphine Sulfate (Morphine Sulfate) 3 mg IVPUSH Q3H [facility] Scopolamine HBr (Transderm-Scop -) 1 patch TD Q72H [facility] Last Admin: 11/16/17 18:41 Dose: 1 patch - Objective Vital Signs: Vital Signs Temperature 100.5 F H 11/18/17 07:08 Pulse Rate 108 H 11/18/17 07:08 Respiratory Rate 20 11/18/17 07:08 Blood Pressure 142/77 11/18/17 07:08 O2 Sat by Pulse Oximetry (%) 94 L 11/16/17 21:00 Constitutional: Yes: Thin HENT: Yes: Other (NG tube with bilious output) Cardiovascular: Yes: Regular Rate and Rhythm, S1, S2 Respiratory: Yes: CTA Bilaterally, Other (shallow breaths) Gastrointestinal: Yes: Hypoactive Bowel Sounds, Tenderness Edema: No Labs: CBC, BMP 11/12/17 05:30 11/12/17 05:30 Problem List - Problems (1) Hospice care patient Assessment/Plan: DNR [facility] hospice to evaluate patient today based on their recomendation will then stop clinimix (2) Malnourished Assessment/Plan: low protein and albumin on clinimix for now DNR [facility] hospice evaluation Code(s): E46 - UNSPECIFIED PROTEIN-CALORIE MALNUTRITION Qualifiers: Protein-calorie malnutrition severity: severe (3) SBO (small bowel obstruction) Assessment/Plan: NGT tube NPO clinimix for now DNR [facility]NI hospice eval morphine standing order Code(s): K56.609 - UNSP INTESTNL OBST, UNSP TO PARTIAL VERSUS COMPLETE OBST (4) 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
[2017-11-18] MEDS: AA 2.75 %/CALCIUM/LYTES/D7.5W 1,000 ML IVPB SCH (10:49)
--- NOTE | 2017-11-18 11:21 | PN ---
Progress Note (short form) - Note Progress Note: Renal follow up for MARIE and Malnutrition Pt seen and examined at the bedside in wrist restraints NGT in place Vital Signs Temperature 100.5 F H 11/18/17 07:08 Pulse Rate 108 H 11/18/17 07:08 Respiratory Rate 20 11/18/17 07:08 Blood Pressure 142/77 11/18/17 07:08 O2 Sat by Pulse Oximetry (%) 94 L 11/16/17 21:00 Intake & Output 11/15/17 11/16/17 11/17/17 11/18/17 23:59 23:59 23:59 23:59 Intake Total 1181 2007 1762 504 Output Total 50 100 102 50 Balance 1131 1908 1660 454 NAD, NGT in place lethargic RRR soft, mild distension no LE edema CBC, BMP 11/12/17 05:30 11/12/17 05:30 Current Medications Acetaminophen (Tylenol Suppository -) 650 mg [place] Q6H PRN PRN Reason: FEVER Last Admin: 11/17/17 11:45 Dose: 650 mg IV Flush (Picc Line Flush) 8 ml IVPUSH PRN PRN PRN Reason: Protocol Last Admin: 11/15/17 10:07 Dose: 8 ml AA 2.75 %/CALCIUM/LYTES/D7.5W (Clinimix 2.75%-7.5% Solution) 1,000 mls @ 63 mls /hr IVPB Q15H [facility] Last Admin: 11/18/17 10:49 Dose: Not Given Lorazepam (Ativan Injection -) 1 mg IVPUSH Q6H PRN PRN Reason: ANXIETY Last Admin: 11/18/17 00:01 Dose: 1 mg Morphine Sulfate (Morphine Sulfate) 3 mg IVPUSH Q3H [facility] Last Admin: 11/18/17 10:48 Dose: 3 mg Scopolamine HBr (Transderm-Scop -) 1 patch TD Q72H [facility] Last Admin: 11/16/17 18:41 Dose: 1 patch 82 year old woman with PMhx HTN dementia and DM who presents for evaluation of abdominal pain and found to have SBO with Cr of 1.7. #SBO/NPO status/Malnutrition Hospice Eval will continue Clinimix solution for now, no TPN available prognosis is poor supportive care Thank you Vinnie Holt DO
[2017-11-18] MEDS: PICC LINE 8 ML FLUSH PROTOCOL IVPUSH PRN (15:41)
[2017-11-18] MEDS: DEXTROSE 5%-0.45% SALINE 1,000 ML IV SCH (15:47)
[2017-11-18] MEDS: MORPHINE 100 MG in SODIUM CHLORIDE 98 ML IVPB SCH (18:07)
--- NOTE | 2017-11-18 18:36 | PN ---
Progress Note (short form) - Note Progress Note: Family asked to see me to inquire about what would happen if they removed NGT for hospice/comfort care only. Patient is now on inpatient hospice, on fluids and morphine, but not yet on morphine drip, and NGT is still to suction, which also requires wrist restraints to keep patient from removing it. She appears somewhat sedated, uncomfortable and grimacing at times, not responsive to voice or questions, but does open eyes occasionally. NG with light green output. Explained to Adela and two other family members at bedside that all interventions have pros and cons, but that if Ms. Soto's comfort is now the paramount goal, it would be appropriate to remove all interventions causing discomfort (NGT, restraints) and provide the morphine drip to maximize comfort. Possible consequences of removing NGT would be nausea, vomiting, aspiration, abdominal pain from progressive obstruction, hastening - or any, all or none of the above. The patient had made it clear previously by self-removing the tube multiple times that it was uncomfortable. Despite possible consequences , Ms. Soto may be most comfortable without the NGT or restraints. Even the morphine drip can have the double effect of pain relief and sedation, which can hasten , but they agree that this is understood as a part of comfort care measures. I let them know that hospice or nursing staff could remove the NGT if and when they requested it. All questions answered, and family members were satisfied with our discussion. Spent 15 minutes face to face in patient's room. They indicated they would come to a decision soon. Kristen JIMENEZ General Surgery Problem List - Problems (1) Counseling regarding end of life decision making Code(s): Z71.89 - OTHER SPECIFIED COUNSELING (2) Hospice care patient Code(s): Z51.5 - ENCOUNTER FOR PALLIATIVE CARE (3) Intestinal adhesions with complete obstruction Code(s): K56.52 - INTESTINAL ADHESIONS [BANDS] WITH COMPLETE OBSTRUCTION (4) Protein-calorie malnutrition Code(s): E46 - UNSPECIFIED PROTEIN-CALORIE MALNUTRITION Qualifiers: Protein-calorie malnutrition severity: severe Qualified Code(s): E43 - Unspecified severe protein-calorie malnutrition (5) Ascites Code(s): R18.8 - OTHER ASCITES Qualifiers: Ascites type: other type Qualified Code(s): R18.8 - Other ascites (6) 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
--- NOTE | 2017-11-19 09:46 | PN ---
Progress Note, Physician Chief Complaint: patient seen and examined on inpatient hospice DNR/DNI still has NG tube on morphine drip not wearing restraints sleeping appears comfortable - Current Medication List Current Medications: Active Medications Acetaminophen (Tylenol Suppository -) 650 mg [place] Q6H PRN PRN Reason: FEVER Last Admin: 11/17/17 11:45 Dose: 650 mg IV Flush (Picc Line Flush) 8 ml IVPUSH PRN PRN PRN Reason: Protocol Last Admin: 11/18/17 15:41 Dose: 8 ml Dextrose/Sodium Chloride (D5-1/2ns -) 1,000 mls @ 42 mls/hr IV ASDIR [facility] Last Admin: 11/18/17 15:47 Dose: 42 mls/hr Morphine Sulfate 100 mg/ (Sodium Chloride) 100 mls @ 1 mls/hr IVPB TITR [facility]; 1 MG/HR PRN Reason: Protocol Last Admin: 11/18/17 18:07 Dose: 1 mg/hr, 1 mls/hr Lorazepam (Ativan Injection -) 1 mg IVPUSH Q4H-IV PRN PRN Reason: ANXIETY Last Admin: 11/18/17 15:40 Dose: 1 mg Scopolamine HBr (Transderm-Scop -) 1 patch TD Q72H [facility] Last Admin: 11/16/17 18:41 Dose: 1 patch - Objective Vital Signs: Vital Signs Temperature 98.4 F 11/19/17 05:00 Pulse Rate 102 H 11/19/17 05:00 Respiratory Rate 22 11/19/17 05:00 Blood Pressure 149/76 11/19/17 05:00 O2 Sat by Pulse Oximetry (%) 95 11/18/17 21:00 Constitutional: Yes: Calm, Thin HENT: Yes: Other (ng tube) Cardiovascular: Yes: Regular Rate and Rhythm, S1, S2 Respiratory: Yes: Other (shallow breaths) Gastrointestinal: Yes: Hypoactive Bowel Sounds, Tenderness (on palpation( patient grimaces )) Edema: No Labs: CBC, BMP 11/12/17 05:30 11/12/17 05:30 Problem List - Problems (1) SBO (small bowel obstruction) Assessment/Plan: NGT tube- surgical note appreicated family to decide about when to remove ng tube now on inpatient hospice comfort care DNR DNI morphine drip Code(s): K56.609 - UNSP INTESTNL OBST, UNSP TO PARTIAL VERSUS COMPLETE OBST (2) Hospice care patient Assessment/Plan: DNR DNI' in patient hospice morphine drip ativan prn scopolamine patch (3) Malnourished Assessment/Plan: DNR DNI now impatient hospice ivf Code(s): E46 - UNSPECIFIED PROTEIN-CALORIE MALNUTRITION Qualifiers: Protein-calorie malnutrition severity: severe (4) 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
[2017-11-19] MEDS: SCOPOLAMINE HYDROBROMIDE 1 PATCH PATCH.TD72 TD SCH (15:41)
[2017-11-19] MEDS: PICC LINE 8 ML FLUSH PROTOCOL IVPUSH PRN (17:41)
[2017-11-19] MEDS: MORPHINE 100 MG in SODIUM CHLORIDE 98 ML IVPB SCH (17:41)
[2017-11-19] MEDS: DEXTROSE 5%-0.45% SALINE 1,000 ML IV SCH (17:44)
[2017-11-20 02:11] VITALS: BP 127/87; TEMP 99.9
[2017-11-20 02:14] VITALS: PULSE 114
--- NOTE | 2017-11-20 05:43 | HOSP ---
Subjective - Review of Symptoms Events since last encounter: called to see patient as she has passed. Immediately went to evaluate pt. Pt with no response to verbal or tactile stimuli. No audible breath or heart sounds when auscultated x 1 min. No pupillary response. Pt pronounced. 518am. Daughters at bedside. condolences offered. Physical Examination Vital Signs: Vital Signs Temperature 99.9 F H 11/20/17 02:10 Pulse Rate 114 H 11/20/17 02:10 Respiratory Rate 18 11/20/17 02:10 Blood Pressure 127/87 11/20/17 02:10 O2 Sat by Pulse Oximetry (%) 95 11/19/17 09:00 Labs: CBC, BMP 11/12/17 05:30 11/12/17 05:30
[2017-11-20] MEDS ORDERED: INSULIN DETEMIR 100 UNITS/ML MDV SQ ONE (08:40)
[2017-11-20] MEDS ORDERED: INSULIN (NOVOLOG) ASPART 100 UNITS/ML 10ML VIAL ONE (08:40)
== END 2017-11-20 05:18 | disposition expired | DRG 388 ==
LOC: JER 11:36 → JERBED 16:51 → J8W 20:33
PROVIDERS: ADMIT Family Medicine; ATTEND Family Medicine
PROC: 0D9670Z Drainage of Stomach with Drainage Device, Via Natural or Artificial Opening (ICD-10-PCS; 2017-11-03)
PROC: 02HV33Z Insertion of Infusion Device into Superior Vena Cava, Percutaneous Approach (ICD-10-PCS; principal; 2017-11-05)
DX: K56.52 Intestinal adhesions [bands] with complete obstruction (principal); E43 Unspecified severe protein-calorie malnutrition; F02.81 Dementia in other diseases classified elsewhere, unspecified severity, with behavioral disturbance; Z68.1 Body mass index [BMI] 19.9 or less, adult; N17.9 Acute kidney failure, unspecified; R18.8 Other ascites; R64 Cachexia; E11.9 Type 2 diabetes mellitus without complications; E78.5 Hyperlipidemia, unspecified; D64.9 Anemia, unspecified; R62.7 Adult failure to thrive; E11.22 Type 2 diabetes mellitus with diabetic chronic kidney disease; N18.9 Chronic kidney disease, unspecified; I12.9 Hypertensive chronic kidney disease with stage 1 through stage 4 chronic kidney disease, or unspecified chronic kidney disease; N18.3 Chronic kidney disease, stage 3 (moderate); E11.36 Type 2 diabetes mellitus with diabetic cataract; Z51.5 Encounter for palliative care; Z66 Do not resuscitate; Z71.89 Other specified counseling
CPT/HCPCS: 36415; 36569; 70450-TC; 71045-TC-FY; 74018-TC-FY; 74019-TC-FY; 74176-TC; 77001-TC-FY; 80048; 80053; 80061; 81003; 81015; 82150; 82272; 82746; 82962; 83036; 83605; 83690; 83721; 83735; 84100; 85025; 87040; 87086; 90688; 93005; 93010; 99284-25; C1751; G0008; J1644; J7030